=== PATIENT | female | born 1990 | race Caucasian/White ===

== ENCOUNTER → 2017-08-11 21:14 | Outpatient (CLI) | payer OTHER, SELFPAY ==
[2017-08-17 10:06] LABS: HPV Reflexed? NOT INDICATED
== END ==
PROVIDERS: Visit Provider Obstetrics & Gynecology
DX: Z12.4 Encounter for screening for malignant neoplasm of cervix (principal)
CPT/HCPCS: 88175; G0145

== ENCOUNTER 2017-08-25 18:01 | Emergency (ER) | payer OTHER, SELFPAY ==
--- NOTE | 2017-08-25 18:01 | DT_ITS ---
This patient was seen during an EMR downtime August 24, 2017 - August 31, 2017. This patient may have a combination of paper and electronic documentation or all paper documentation. All documentation is viewable within the e-chart portion of [employer] for each patient visit.
--- NOTE | 2017-08-25 18:10 | CT_ITS ---
STUDY: CT BRAIN WITHOUT CONTRAST REASON FOR EXAM: Female, 27 years old. Injury. RADIATION DOSAGE (If Supplied By Facility): CTDIvol = ( 44.99 ) mGy, DLP = ( 728.62 ) mGycm TECHNIQUE: Transaxial CT imaging of the brain was performed without administration of intravenous contrast material. Individualized dose optimization techniques were used for this CT. COMPARISON: None. FINDINGS: Normal soft tissue structures. Normal calvarium. Normal size ventricles and extra-axial spaces for the patient's age. Normal white matter tracts of the cerebral hemispheres. Normal basal ganglia and thalami. Normal brainstem. Normal cerebellum. There is no intracranial hemorrhage. There are no findings of an acute ischemic infarction. Normal visualized paranasal sinuses. CT/Brain/Head without Contrast IMPRESSION: Normal unenhanced CT scan of the brain. Electronically Signed: Timoteo Cordon MD at 21:32 EDT , Service support ,
== END 2017-08-25 19:15 | disposition home or self-care (01) ==
LOC: ED 08-27 08:45
PROVIDERS: Emergency Provider Emergency Medicine; Family Provider Family Medicine; PCP Family Medicine
DX: S09.90XA Unspecified injury of head, initial encounter (principal); S06.0X9A Concussion with loss of consciousness of unspecified duration, initial encounter; W22.8XXA Striking against or struck by other objects, initial encounter; Y93.9 Activity, unspecified; Y92.9 Unspecified place or not applicable
CPT/HCPCS: 70450; 99282

== ENCOUNTER 2017-11-16 10:57 | Emergency (ER) | payer OTHER, SELFPAY ==
[2017-11-16 10:58] VITALS: BP 134/67; PULSE 57; RESP 16; TEMP 36.9; O2SAT 100; BMI 21.2
--- NOTE | 2017-11-16 11:36 | ED.VISSUMM ---
- ER Visit Summary Date of Service: 11/16/17 Chief Complaint: Ankle injury History of Present Illness: The patient is a 27 F who did not see a weight on the floor at the gym today and sustained an inversion injury. She notes pain over the lateral malleolus. She denies any medial or posterior pain no pain at the fifth metatarsal or fibular head site. Physical Examination: Afebrile vital signs stable Gen: Well-nourished well-developed Head: Normocephalic atraumatic Eyes: Perrl EOMI ENT: TMs clear no rhinorrhea moist mucous membranes Neck: Supple no lymphadenopathy no JVD nontender CVS: Regular rate rhythm no murmurs normal S1-S2 Respiratory: No distress clear to auscultation bilaterally chest nontender Abdomen: Soft nontender nondistended normal bowel sounds no masses Back: Nontender Extremity: Tender palpation over the anterior aspect of the right fibula and the ATF ligament Skin: Normal color no rash Neuro: alert orientated ?3 CN II-XII intact normal strength sensation reflexes gait cerebellar Psych: Normal affect normal mood Test Results: Three-view negative Emergency Department Course and Treatment: Patient will be placed in a air splint instruction for rice therapy return if worsening or concerns Impression: 1. Right ankle sprain This note was generated with [employer] dictation software. It may contain incorrect words, spelling, and punctuation that were not noted in review of the chart prior to signing ED Disposition - Plan for ED Patient: Disposition: Home or Assisted Living Chief Complaint: Lower Extremity Injury Instructions: ED Sprain Ankle W X Ray Referrals: Yao Hanks MD [Primary Care Provider] - 10-14 Days if not better
== END 2017-11-16 12:39 | disposition home or self-care (01) ==
PROVIDERS: Emergency Provider Emergency Medicine; Family Provider Family Medicine; PCP Family Medicine
DX: S93.401A Sprain of unspecified ligament of right ankle, initial encounter (principal); X50.1XXA Overexertion from prolonged static or awkward postures, initial encounter; Y93.89 Activity, other specified; Y92.39 Other specified sports and athletic area as the place of occurrence of the external cause; Y99.8 Other external cause status
CPT/HCPCS: 73610; 99283

== ENCOUNTER → 2017-12-17 10:32 | Outpatient (CLI) | payer OTHER, SELFPAY ==
[2017-12-18 18:39] LABS: Lead, Blood Adult 16+yrs 1 ug/dL (0-4)
== END ==
PROVIDERS: Family Provider Family Medicine; PCP Family Medicine; Referring Provider Physician Assistant; Visit Provider Physician Assistant
DX: Z77.011 Contact with and (suspected) exposure to lead (principal)
CPT/HCPCS: 36415; 83655

== ENCOUNTER → 2018-02-19 15:45 | Outpatient (CLI) | payer OTHER, SELFPAY ==
[2018-02-19 14:24] VITALS: BMI 21.4
[2018-02-19 17:18] LABS: Absolute Lymphocyte Count 2.08 X10^3/ul (0.83-4.51); Absolute Neutrophil Count 6.3 X10^3/uL (2.0-7.7); Basophil# 0.03 X10^3/uL; Basophil% 0.3 % (0-1); Eosinophil# 0.07 X10^3/uL; Eosinophils% 0.8 % (0-5); Hemoglobin 12.4 g/dl (12.0-15.0); Lymphocyte # 2.08 X10^3/ul (4.0); Lymphocyte % 22.5 % (19-41); Mean Corp Hgb Conc 32.6 g/gl (32-36); Mean Corpuscular Hgb 28.8 pg (27.0-32.0); Mean Corpuscular Volume 88.2 fL (81-99); Mean Platelet Vol. 9.9 fl (6.2-12.0); Monocyte# 0.78 X10^3/uL; Monocyte% 8.5 % (0-10); Neutrophil # 6.25 X10^3/uL (2.7-7.7); Neutrophil % 67.7 % (47-70); Platelet Count 270 K/mm3 (150-450); RBC Distribution Width CV 12.6 % (11.6-14.6); RBC Distribution Width SD 40.7 fl (35.1-43.9); Red Blood Count 4.31 M/mm3 (4.2-5.4); White Blood Count 9.2 K/mm3 (4.4-11.0)
[2018-02-19 17:23] LABS: POSITIVE COUNT NO; POSITIVE DIFFERENTIAL NO; POSITIVE MORPHOLOGY NO
[2018-02-19 18:24] LABS: HIV - WCH Non-Reactive (Nonreactive); Rubella IgG 194.8 IU/mL
[2018-02-19 20:19] LABS: Chlamydia Trachomatis by PCR Negative (Negative); Neisserai gonorrhoeae by PCR Negative (Negative); Probe Check PASS; Sample Adequacy Control PASS; Specimen Processing Control PASS
[2018-02-22 11:17] LABS: HEPATITIS B SURFACE AG Negative (Negative)
[2018-02-26 02:32] LABS: Rapid Plasmin Reagin (RPR) NONREACTIVE (NONREACTIVE)
--- OUTSIDE RECORDS SUMMARY | 2018-04-16 14:37 | XMS RPT_ITS ---
:1990 Author Organization [facility] Support Name Relationship Address Phone ASH PORTILLO Unavailable [address] + [place] [address] [facility] Unavailable [address] + [place] [address] ASH PORTILLO Unavailable [address] + [place] [address] [facility] Unavailable [address] + [place] [address] ASH PORTILLO Unavailable [address] + [place] [address] [facility] Unavailable [address] + [place] [address] ASH PORTILLO Unavailable [address] + [place] [address] [facility] Unavailable [address] + [place] [address] ASH PORTILLO Unavailable [address] + [place] [address] [facility] Unavailable [address] + [place] [address] ASH PORTILLO Unavailable [address] + [place] [address] [facility] Unavailable [address] + [place] [address] ASH PORTILLO Unavailable [address] + [place] [address] [facility] Unavailable [address] + [place] [address] ASH PORTILLO Unavailable . + [place] [address] [facility] Unavailable Unavailable + [place] [address] U Unavailable Unavailable Unavailable Care Team Providers Name Role Phone ASSESSMENT, HEALTH RISK Attending Unavailable Marcanthony, Elva Referring Unavailable Marcanthony, Elva Primary Care Unavailable Marcanthony, Elva Attending Unavailable DOCTOR, OUT OF TOWN Referring Unavailable Marcanthony, Elva Primary Care Unavailable Marcanthony, Elva Attending Unavailable Marcanthony, Elva Referring Unavailable Denise Rhoades Attending Unavailable Rhoades, Denise Referring Unavailable [place], Ayo Primary Care Unavailable Latonya, Yao Primary Care Unavailable Yao Montano Attending Unavailable Diogenes, Jl Attending Unavailable Latonya, Yao Referring Unavailable WylesJl Attending Unavailable Wyles, Jl Referring Unavailable [place], Yao Primary Care Unavailable Marcanthony, Elva Attending Unavailable Latonya, Yao Referring Unavailable Marcanthony, Elva Attending Unavailable Marcanthony, Elva Referring Unavailable [place], Yao Primary Care Unavailable PROBLEMS PROBLEMS DATE TYPE CONDITION / CODE ATTENDING STATUS SOURCE 02/19/2018 Unknown Z34.90 - Encounter Clementina Active [place] for supervision of [facility] normal , Hospital unspecified, Repository unspecified trimester / Z34.90(ICD-10) 02/19/2018 Unknown Z3A.08 - 8 weeks Clementina Active [place] gestation of [facility] / Hospital Z3A.08(ICD-10) Repository 02/19/2018 Unknown Z34.01 - Encounter Phi Mcrae [place] for supervision of [facility] normal first Hospital , first Repository trimester / Z34.01(ICD-10) 12/17/2017 Unknown Z77.011 - Contact Jl Shetty Active [place] with and Community (suspected) Hospital exposure to lead / Repository Z77.011(ICD-10) 12/17/2017 Unknown Z78.9 - Other Jl Shetty Active [place] specified health Community status / Hospital Z78.9(ICD-10) Repository 09/18/2017 Unknown S09.90XA - Denise Rhoades Active [place] Unspecified injury Community of head, initial Hospital encounter / Repository S09.90XA(ICD-10) 08/12/2017 Unknown Z12.4 - Encounter Phi Mcrae [place] for screening for [facility] malignant neoplasm Hospital of cervix / Repository Z12.4(ICD-10) 08/11/2017 Unknown Z01.419 - Encounter Clementina, Active [place] for gynecological [facility] (general) (routine) Repository without abnormal findings / Z01.419(ICD-10) PROCEDURES PROCEDURES No Procedure Records FoundRESULTS RESULTS CT/NG WCH BY PCR Collected: 02/19/2018 Status: F Source: [place] 6:36 PM [facility] REPOSITORY TYPE CODE TESTS RESULT OUT OF RANGE REFERENCE UNITS LAB L8200.2100 Negative Normal Chlam Negative Trac PCR LAB L8200.2200 Negative Normal NG by Negative PCR Performed By: #### L8200.1999 #### [facility] [address] [place], [address] Observed: 02/19/2018 Status: F Source: ENCINAL CULTURE, URINE 6:36 PM [facility] REPOSITORY Urine Culture Culture exhibits no growth. Performed By: #### M100.0650 #### [facility] [address] [place], [place], [address] CBC W/DIFF, AUTOMATED Collected: 02/19/2018 Status: F Source: ENCINAL 3:48 PM [facility] REPOSITORY TYPE CODE TESTS RESULT OUT OF RANGE REFERENCE UNITS LAB L100.1000 4.4-11.0 K/mm3 Normal WBC 9.2 LAB L100.1200 4.2-5.4 M/mm3 Normal RBC 4.31 LAB L100.1300 12.0-15.0 g/dl Normal HGB 12.4 LAB L100.1400 37-47 % Normal HCT 38.0 LAB L100.1500 81-99 fL Normal MCV 88.2 LAB L100.1600 27.0-32.0 pg Normal MCH 28.8 LAB L100.1700 32-36 g/gl Normal MCHC 32.6 LAB L100.1810 11.6-14.6 % Normal RDW CV 12.6 LAB L100.1820 35.1-43.9 fl Normal RDW SD 40.7 LAB L100.1900 150-450 K/mm3 Normal PLT 270 LAB L100.2000 6.2-12.0 fl Normal MPV 9.9 LAB L100.2100 47-70 % Normal NEUT% 67.7 LAB L100.2200 19-41 % Normal LY% 22.5 LAB L100.2300 0-10 % Normal MONO% 8.5 LAB L100.2400 0-5 % Normal EO% 0.8 LAB L100.2500 0-1 % Normal BASO% 0.3 LAB L100.2550 0.0-0.9 % Normal IM GRAN % 0.200 Result Comment: IG% - Immature Granulocytes (promyelocytes, myelocytes and metamyelocytes) > 1% indicates that a LEFT SHIFT is Present. LAB L100.2620 2.0-7.7 X10 3/uL Normal Absolute Neut 6.3 LAB L100.2720 0.83-4.51 X10 3/ul Normal Absolute Lymph 2.08 Performed By: #### L100.0100 #### [facility] [address] [place], [address] TYPE AND SCREEN Collected: 02/19/2018 Status: F Source: ENCINAL 3:48 PM [facility] REPOSITORY Order Comment: Reason for Type AND Screen/Red Cells: TYPE CODE TESTS RESULT OUT OF RANGE REFERENCE UNITS LAB B10.0800 O Normal BLOOD TYPE GEL POSITIVE LAB B100.4000 Normal Antibody NEGATIVE Screen Performed By: #### B101.7450 #### [facility] [address] [facility] [place], [place], [id number] RUBELLA IGG Collected: 02/19/2018 Status: F Source: ENCINAL 3:48 PM [facility] REPOSITORY TYPE CODE TESTS RESULT OUT OF RANGE REFERENCE UNITS LAB L509.4000 IU/mL Normal Rubella IgG 194.8 Result Comment: Antibody results Interpretation of Immune Status < 5 IU/ml Presumed Non-immune 5 - < 10 IU/ml Equivocal > or = 10 IU/ml Presumed Immune Performed By: #### L509.4000, L3890.6005 #### [facility] [address] [place], [place], [id number] HIV - H Collected: 02/19/2018 Status: F Source: ENCINAL 3:48 PM [facility] REPOSITORY TYPE CODE TESTS RESULT OUT OF RANGE REFERENCE UNITS LAB L3890.6005 Nonreactive Normal HIV - [facility] Non-Reactive Performed By: #### L509.4000, L3890.6005 #### [facility] [address] [place], [address] HEPATITIS B SURFACE Collected: 02/19/2018 Status: F Source: [place] AG 3:48 PM [facility] REPOSITORY TYPE CODE TESTS RESULT OUT OF RANGE REFERENCE UNITS LAB L3100.0400 Negative Normal HB Negative SURF AG Result Comment: Performed at: [facility] [id number] Special Programs Director: Romel Clemens PhD, Phone: [phone] Performed By: #### L3100.0390 #### [facility] (refer to report for specific site) refer to report for address and phone number RAPID PLASMIN REAGIN Collected: 02/19/2018 Status: F Source: [place] (RPR) 3:48 PM [facility] REPOSITORY TYPE CODE TESTS RESULT OUT OF REFERENCE UNITS RANGE LAB L700.5000 NONREACTIVE NONREACTIVE Normal RPR Performed By: #### L700.5000 #### [facility] [address] [place], [place], [address] ORGAN TEACHER OFFICE VISIT Observed: 02/19/2018 Status: F Source: [place] REPORT 3:34 PM [facility] REPOSITORY [facility] [address] [place] [address] OFFICE VISIT Date of Service: 02/19/18 MR#: [id number] Acct: [id number] Name: NEIDA PORTILLO Rep #: [id number] : 1990 Provider: Elva Mcrae MD Age/Sex: 27/F Location: [facility] Status: Signed Intake Vital Signs02/19/18 Height 5 ft 3 in 02/19/18 Weight: 121 lb 4 oz 02/19/18 Body Mass Index (BMI) 21.4 02/19/18 Blood Pressure 104/50 L Intake Visit Reasons: NOB - LMP 02/19 Chief Complaint: NEW OB Control Systems Designer Required: No Is patient in pain?: No Allergies Penicillins [PCN] Adverse Reaction (Verified 02/19/18 14:25) Itching Medications vitamin #56-iron 35 mg and 5 mg-folic acid 1 mg-dha capsule 1 cap PO DAILY 02/19/18 [History Confirmed 02/19/18] Last Menstral Period: 07/27/17 Zika: Zika virus screening: Negative : No PFSH PFSH Surgical History History of wisdom tooth extraction (Acute) Hx of LASIK (Acute) Family History Mother Breast cancer Grandmother Cancer multiple myeloma Social History Smoking Status: Never smoker alcohol intake: current details: social substance use type: does not use caffeine: Yes frequency: daily seatbelt use: always do you feel safe at home: Yes additional 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 OB Visit GREGORIO Calculator Estimated Delivery Date 09/26/18 Based on LMP (certain) 12/20/17 Current WG 8w 5d Number 1 Comments: Limited transvaginal ultrasound performed to confirm EDC and viability. CRL is consistent with LMP. FHTs 170. no gross abnormalities noted. Expected Delivery Route/Plan Initial Weight: 121 lb Date Weight BP Urine PrFHR FuHt Pres MoCTX DilationFetal StVisit NoProviderComments E ot v te GA G Effac lucose ed Menstrual History Last Menstral Period: 07/27/17 Reported LMP: definite Normal amount/duration: Yes On hormonal BC at conception: No Antepartum Record Genetic Screening: Congenital Heart Defect: Other, Neural Tube Defect: Other, Hemoglobinopathy Or Carrier: Other, Cystic Fibrosis: Other, Chromosome Abnormality: Other, Buzz-Sachs: Other, Hemophilia: Other, Intellectual Disability/Autism: Patient (maternal cousin), Recurrent Loss/Stillbirth: Other, Other Structural Defect: Other, Other Genetic Disease: Other, Maternal Metabolic Disorder: Other Infection History: Live with someone with TB or Exposed to TB: No, Patient or Partner has history of Genital Herpes: No, Rash or Viral illness since last mentrual period: No, Prior GBS-Infected child: No, History of STD: No, HIV Infection: No, History of Hepatitis: No, Recent travel outside of [place]: No, Concern for Hep exposure: No, Varicella immune: Yes Medical History Medical History: Negative: Diabetes, Hypertension, Heart disease, Auto-immune disorder, Kidney disease/UTI, Neurologic/epilepsy, Psychiatric, Depression/ depression, Hepatitis/liver disease, Varicosities/phlebitis, Thyroid dysfunction, Trauma/domestic violence, History of blood transfusions, D (Rh) Sensitized, Pulmonary (e.g.,TB,Asthma), Seasonal allergies, Drug/latex allergies/reactions, Breast, Reception Agent surgery, Operations/hospitalizations, Anesthetic complications, History of abnormal pap, Uterine anomaly/mali, Infertility, Anti-retroviral treatment, Relevant family history, Other ACOG First Trimester First Trimester: , Desire for , Alcohol, Tobacco Cessation, Illicit/Recreational Drug/Substance Use, Intimate Partner Violence, Barriers to care, Unstable Housing, Communication Barriers, Environmental/Work Hazards, Anticipated Course of Care, Nurtrition and weight gain, Toxoplasmosis Precations, Use of Any medications, Sexual activity, Exercise, Dental Care, Sauna/Hot tub use, Seat Belt use, Childbirth classes/Hospital facilities, Travel, Indications for US and Screening for Aneuploidy ROS Const Denies fever(s), Reports system reviewed and no additional complaints, except as docu, Reports fatigue Eyes Reports system reviewed and no additional complaints, except as docu ENT Reports system reviewed and no additional complaints, except as docu Card Denies chest pain, Denies shortness of breath Resp Reports system reviewed and no additional complaints, except as docu, Denies shortness of breath, Denies cough GI Reports nausea, Denies abdominal pain Reports system reviewed and no additional complaints, except as docu Musc Reports system reviewed and no additional complaints, except as docu Skin/Breast Reports system reviewed and no additional complaints, except as docu Neuro Yes system reviewed and no additional complaints, except as docu Psych Reports system reviewed and no additional complaints, except as docu Endo Reports fatigue, Reports system reviewed and no additional complaints, except as docu Exam Const General: healthy appearing, comfortable, no acute distress Orientation: alert HENCA Head: normal to inspection, atraumatic, normocephalic Ears: external ears normal, hearing grossly normal bilaterally Nose: nares normal, external nose normal Mouth: oral mucosae normal Teeth and gingiva: dentition normal Eyes General: appearance normal, both eyes and all related structures Neck Neck: no lymphadenopathy, supple, normal visual inspection Thyroid: thyroid normal Resp Effort AND Inspection: normal respiratory effort GI Inspection: normal to inspection Palpation: soft, no hepatosplenomegaly General: bladder normal to palpation External Female Exam: normal external appearance, normal appearance of the urethra Urethra: normal appearance of the urethra Speculum Exam - Vagina: normal appearance of the vagina, normal vaginal discharge Speculum Exam - Cervix: normal appearance of the cervix Bimanual Exam- Vagina AND Uterus: bladder normal to palpation, normal bimanual exam, uterus non-tender, other Bimanual Exam- Adnexa, other: adnexae non-tender Skin General: no rashes or lesions noted Neuro Motor: muscle tone normal throughout, no movement abnormalities noted Extrem General: normal to inspection, full ROM Assessment AND Plan Problems 1. 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 2. Encounter for supervision of normal first in first trimester Z34.01 GREGORIO AND Ash Plan Patient oriented to practice and discussed care expectations and screenings. ACOG book offered to patient. Discussed routine and specially indicated labs if needed- patient consents to testing. see problem list details for plan information. Optional screening including carrier screenings, neural tube defect screening, sequential screening, and NIPT screening offered to patient and patient chose: discussed Orders Orders: Supplemental Info ACOG book given and patient encouraged to read about nutrition, exercise, weight gain, and food avoidance in . Coding Level of Care Code OB Routine Diagnoses 8 weeks gestation of Z3A.08 Weeks of gestation: 8 weeks Encounter for supervision of normal first in first trimester Z34.01 Normal : normal first Trimester: first trimester 02/19/18 1534 <Electronically signed by Elva Mcrae MD> Date Elva Mcrae MD Cosigner Signature: Date (if applicable) CC: LEAD, BLOOD ADULT Collected: 12/17/2017 Status: F Source: [place] 16+YRS 10:43 AM [facility] REPOSITORY TYPE CODE TESTS RESULT OUT OF RANGE REFERENCE UNITS LAB L3100.6450 0-4 ug/dL Normal LEAD 1 *Form Result Comment: Analysis by inductively coupled plasma/mass spectrometry (ICP/MS) Environmental Exposure: WHO Recommendation <20 Occupational Exposure: OSHA Lead Std 40 IVANIA 30 Detection Limit = 1 This test was developed and its performance characteristics determined by [employer]. It has not been cleared or approved by the Food and Drug Administration. Performed at: [facility] [place] [address] [id number] Special Programs Director: Romel Clemens PhD, Phone: [phone] Performed By: #### L3100.6450 #### [facility] (refer to report for specific site) refer to report for address and phone number URGENT CARE VISIT Observed: 12/17/2017 Status: F Source: [place] REPORT 9:31 AM [facility] REPOSITORY [facility] [place] [address] OFFICE VISIT Date of Service: 12/17/17 MR#: [id number] Acct: [id number] Name: NEIDA PORTILLO Rep #: [id number] : 1990 Provider: Jl GUERRA Age/Sex: 27/F Location: [facility] Status: Signed Intake Vital Signs12/17/17 Height 5 ft 3 in 12/17/17 Weight: 120 lb 12/17/17 Body Mass Index (BMI) 21.2 12/17/17 Blood Pressure 112/74 12/17/17 Respiratory Rate 14 Intake Visit Reasons: LEAD EXP Chief Complaint: lead exp Control Systems Designer Required: No Accompanied by: self Is patient in pain?: No Allergies Penicillins [PCN] Adverse Reaction (Verified 12/17/17 08:47) Itching Medications DIM ELITE NOT APPLICABLE 12/17/17 [History Confirmed 12/17/17] Lactobacil.acidophilus-Bifido.animalis 5 billion cell sprinkle capsule 1 cap PO DAILY 12/17/17 [History Confirmed 12/17/17] cetirizine 10 mg capsule 10 mg PO DAILY 12/17/17 [History Confirmed 12/17/17] [facility] Surgical History History of wisdom tooth extraction (Acute) Hx of LASIK (Acute) Family History Mother Breast cancer Grandmother Cancer multiple myeloma Social History Smoking Status: Never smoker alcohol intake: current details: social substance use type: does not use caffeine: Yes frequency: daily seatbelt use: always do you feel safe at home: Yes additional social history: Jose A Aleman 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 Patient notes being concerned because she has been rehabilitating at all house along with her which she feels has old lead paint on the amador she has been exposed to. More particularly her concerns are she would like to become , and as result would like to be screened for lead toxicity levels and blood as well as screening. She notes she is asymptomatic otherwise other than slightly fatigued over the last couple of weeks. No c/o irritability, loss of appetite, weight loss, abdominal pain, nausea/ vomiting. She notes no other associated symptoms no other alleviating or aggravating factors. ROS Const Constitutional: No other (ROS negative x10 other than as noted above) Exam Const General: cooperative, healthy appearing, no acute distress, comfortable Nutritional Appearance: average body habitus Orientation: alert, awake, oriented x3 HENMT Head: normal to inspection Ears: hearing grossly normal bilaterally, external ears normal, TM's normal bilaterally, EAC's normal Nose: external nose normal, nares normal, septum normal, no nasal discharge Face and sinus: normal facial exam, face symmetric Mouth: tongue normal, lip normal, oropharynx normal, oral mucosae normal Teeth and gingiva: dentition normal, gingiva normal Throat: uvula midline, tonsils normal, posterior oropharynx normal Eyes General: appearance normal, both eyes and all related structures Neck Neck: normal visual inspection, full ROM, no lymphadenopathy, no meningeal signs, supple Neck mass: No Thyroid: thyroid normal Lymphatic: no lymphadenopathy noted Chest Chest palpation AND inspection: normal inspection of the chest Resp Effort AND Inspection: normal respiratory effort, able to speak in complete sentences Auscultation: Bilateral: Clear to Auscultation Cardio Palpation: normal PMI Rate: regular rate Rhythm: regular rhythm Heart Sounds: S1 normal, S2 normal, no gallops, no murmurs, no rubs Pulses: radial pulses present GI Inspection: normal to inspection Palpation: soft, no hepatosplenomegaly General: other (Negative urine hCG today) Skin General: no rashes or lesions noted Neuro General: alert, awake, oriented x3, gait normal Cognition: normal cognition Speech: speech normal Gait: normal gait Motor: muscle tone normal throughout Sensory Exam: no sensory deficits noted Psych Appearance: grossly normal Mental Status: mental status grossly normal Mood: congruent mood Affect: normal affect Speech and Movement: speech and movement normal Attitude: cooperative Thought Process: normal Thought Content: normal Judgment: judgment good Results [facility] Office , Urine Negative Last Edit by Neida Jain on 12/17/17 08:55 Assessment AND Plan Problems 1. 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 Urine hCG negative in office today. Follow-up with PCP or the now clinic on an as-needed basis only. Patient states acknowledging understanding all the above. This note was generated with Translimit dictation software. It may contain incorrect words, spelling, and punctuation that were not noted in checking the note before signing. 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.011 12/17/17 0931 <Electronically signed by Jl GUERRA> Date Jl GUERRA Cosigner Signature: Date (if applicable) CC: EMERGENCY DEPARTMENT Observed: 11/16/2017 Status: F Source: E[place]IN[place] SUMMARY 5:20 PM [facility] REPOSITORY [facility] Medical Records Department [address] [place] [address] Emergency Department Summary 11/16/17 1136 MR#: [id number] Acct: [id number] Name: NEIDA PORTILLO Rep #: [id number] : 1990 27 From: Yao Montano DO PCP: Yao Hanks MD Status: DEP ER - ER Visit Summary Date of Service: 11/16/17 Chief Complaint: Ankle injury History of Present Illness: The patient is a 27 F who did not see a weight on the floor at the gym today and sustained an inversion injury. She notes pain over the lateral malleolus. She denies any medial or posterior pain no pain at the fifth metatarsal or fibular head site. Physical Examination: Afebrile vital signs stable Gen: Well-nourished well-developed Head: Normocephalic atraumatic Eyes: Perrl EOMI ENT: TMs clear no rhinorrhea moist mucous membranes Neck: Supple no lymphadenopathy no JVD nontender CVS: Regular rate rhythm no murmurs normal S1-S2 Respiratory: No distress clear to auscultation bilaterally chest nontender Abdomen: Soft nontender nondistended normal bowel sounds no masses Back: Nontender Extremity: Tender palpation over the anterior aspect of the right fibula and the ATF ligament Skin: Normal color no rash Neuro: alert orientated 3 CN II-XII intact normal strength sensation reflexes gait cerebellar Psych: Normal affect normal mood Test Results: Three-view negative Emergency Department Course and Treatment: Patient will be placed in a air splint instruction for rice therapy return if worsening or concerns Impression: 1. Right ankle sprain This note was generated with Translimit dictation software. It may contain incorrect words, spelling, and punctuation that were not noted in review of the chart prior to signing ED Disposition - Plan for ED Patient: Disposition: Home or Assisted Living Chief Complaint: Lower Extremity Injury Instructions: ED Sprain Ankle W X Ray Referrals: Yao Hanks MD [Primary Care Provider] - 10-14 Days if not better What to do if you have Problems For any increased pain, shortness of breath, bleeding, nausea or vomiting, chest pain, or any unexpected problems, contact your Primary Care Provider. Call [facility] ([phone]) or report to the closest Emergency Room. Call 911 if necessary. 11/16/17 1720 <Electronically signed by Yao Montano DO> Date Yao Montano DO Cosigner Signature (If Indicated): Date CC: Yao Hanks MD ANKLE MIN 3 VIEWS Observed: 11/16/2017 Status: F Source: [place] 11:11 AM [facility] REPOSITORY [facility] Imaging Services [address] [place] [address] Ankle min 3 Views MR#: [id number] Acct: [id number] Name: NEIDA PORTILLO Rep #: [id number] : 1990 F 27 From: Barrie Armstrong MD PCP: Yao Hanks MD Status: DEP ER Study: Ankle min 3 Views Date of Exam: 11/16/17 Exam# [id number] Ordering Dr: Yao Montano DO STUDY: X-RAY - RIGHT ANKLE REASON FOR EXAM: Female, 27 years old. Pain following injury. TECHNIQUE: 3 view(s) of the ankle. COMPARISON: None. FINDINGS: Normal visualized distal tibia and fibula. Normal medial and lateral malleoli. Normal tibiotalar articulation and ankle mortise. Normal visualized talus and calcaneus. The visualized subtalar, talonavicular, calcaneocuboid and tarsal articulations are normal. The soft tissue structures are unremarkable. RAD/Ankle min 3 Views IMPRESSION: Normal x-ray examination of the ankle. Electronically Signed: Barrie Armstrong MD at 11:41 EDT Tel [phone], Service support , CC: Yao Hanks MD; Yao Montano DO Extrusion Die Repairer: Signed DOWNTIME REPORT Observed: 09/09/2017 Status: F Source: SORAIDA 1:57 PM [facility] Medical Records Department [address] [place] [address] Downtime Report MR#: [id number] Acct: [id number] Name: NEIDA PORTILLO E Rep #: [id number] : 1990 27 From: Rufus Carver MD PCP: Yao Hanks MD Status: [facility] ER This patient was seen during an EMR downtime August 24, 2017 - August 31, 2017. This patient may have a combination of paper and electronic documentation or all paper documentation. All documentation is viewable within the e-chart portion of Quu for each patient visit. BRAIN/HEAD WITHOUT Observed: 08/27/2017 Status: F Source: SORAIDA CONTRAST 6:31 PM [facility] Imaging Services [address] [place] [address] Brain/Head without Contrast MR#: [id number] Acct: [id number] Name: NEIDA PORTILLO Rep #: [id number] : 1990 F 27 From: Timoteo Cordon MD PCP: Yao Hanks MD Status: [facility] ER Study: Brain/Head without Contrast Date of Exam: 08/25/17 Exam# [id number] Ordering Dr: Denise Rhoades MD STUDY: CT BRAIN WITHOUT CONTRAST REASON FOR EXAM: Female, 27 years old. Injury. RADIATION DOSAGE (If Supplied By Facility): CTDIvol = ( 44.99 ) mGy, DLP = ( 728.62 ) mGycm TECHNIQUE: Transaxial CT imaging of the brain was performed without administration of intravenous contrast material. Individualized dose optimization techniques were used for this CT. COMPARISON: None. FINDINGS: Normal soft tissue structures. Normal calvarium. Normal size ventricles and extra-axial spaces for the patient's age. Normal white matter tracts of the cerebral hemispheres. Normal basal ganglia and thalami. Normal brainstem. Normal cerebellum. There is no intracranial hemorrhage. There are no findings of an acute ischemic infarction. Normal visualized paranasal sinuses. CT/Brain/Head without Contrast IMPRESSION: Normal unenhanced CT scan of the brain. 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 Designer Required: No Is patient in pain?: No Allergies No Known Allergies Allergy (Unverified 08/11/17 13:19) Medications NK [NK] 08/11/17 [History Confirmed 08/11/17] Is last menstrual period known: Yes Last Menstral Period: 07/27/17 Post menopausal: No Patient : No : No PFSH Family History Mother Breast cancer Grandmother Cancer multiple myeloma Social History Smoking Status: Never smoker alcohol intake: current details: social substance use type: does not use caffeine: Yes frequency: daily seatbelt use: always do you feel safe at home: Yes 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 Last PAP: unsure History of abnormal PAP: no Female Reproductive History Last Menstral Period: 07/27/17 Cycle Length: 21-35 Control Method: condoms associated symptoms: acne Questions: Metorrhagia: No, Sexually active: Yes, Dyspareunia: No, PCB: No ROS Const Constitutional: Reports as per HPI; denies poor appetite, fatigue, increased appetite, weight gain or weight loss Cardio Card: Denies chest pain Resp Resp: Denies dyspnea or cough GI GI: Reports as per HPI; denies bloating, abdominal pain, constipation, vomiting or nausea Details: has IBS that is managed with diet and exercise : Reports as per HPI and other; denies blood in urine, vaginal odor, vaginal itching, vaginal dryness, vaginal discharge, urinary urgency, urinary incontinence, urinary frequency, pelvic pain, painful urination, difficulty urinating, prolapse symptoms or nipple discharge Skin Skin/Breast: Denies breast pain, breast skin changes, nipple discharge, breast lump or changing lesions Exam Const General: cooperative, healthy appearing, comfortable, no acute distress, well developed, well groomed HENCA Head: normal to inspection, normocephalic Ears: hearing grossly normal bilaterally, external ears normal Nose: external nose normal Face and sinus: normal facial exam Neck Neck: normal visual inspection, full ROM, no lymphadenopathy Thyroid: thyroid normal Chest Chest palpation AND inspection: normal inspection of the chest Breast inspection: normal inspection of the breasts, normal inspection of the axillae Breast palpation: normal palpation of the breasts, normal palpation of the axillae, no axillary lymphadenopathy Resp Effort AND Inspection: normal respiratory effort GI Inspection: normal to inspection, non-distended Palpation: no guarding, soft, no hepatosplenomegaly General: bladder normal to palpation External Female Exam: normal external appearance, normal appearance of the urethra, no lesions Urethra: normal appearance of the urethra, normal palpation Speculum Exam - Vagina: normal appearance of the vagina, normal vaginal discharge Speculum Exam - Cervix: normal appearance of the cervix, no cervical discharge, no lesions, nontender Bimanual Exam- Vagina AND Uterus: No cervical tenderness, normal bimanual exam, uterine size normal, bladder normal to palpation, uterine mobility normal, uterine consistency normal, uterus non-tender, no cervical motion tenderness Bimanual Exam- Adnexa, other: normal adnexae, no adnexal masses, adnexae non-tender Skin General: no rashes or lesions noted Neuro General: alert, moves all extremities, no focal motor deficits Extrem General: no pedal edema, normal to inspection Psych Appearance: grossly normal Mental Status: mental status grossly normal Affect: normal affect Speech and Movement: speech and movement normal Attitude: cooperative Assessment AND Plan Problems 1. Encounter for gynecological examination without abnormal finding Z01.419 2. Screening for cervical cancer Z12.4 Plan Cervical cancer screening: pap Breast cancer screening: clinical STD prevention and contraceptive options including their risks, benefits, and alternatives were reviewed with the patient and she chooses: preconception counseling. condoms for now Encouraged maintenance of a healthy weight and active lifestyle and handout given. Calcium/vitamin D recommendations provided. Annual exam handout including recommendations for good health guidelines and basic screening information given. Problem list up to date, see problem list details for any additional plan information. follow up in one year for annual health maintenance exam or sooner if needed. Coding Level of Care Code Off vis,new,prev 18-39yrs Diagnoses Encounter for gynecological examination without abnormal finding Z01.419 Gynecological examination findings: abnormal findings ABSENT Screening for cervical cancer Z12.4 08/11/17 1353 <Electronically signed by Elva Mcrae MD> Date Elva Mcrae MD Cosigner Signature: Date (if applicable) CC: PAP I-G W/RFX Collected: 08/11/2017 Status: F Source: SORAIDA HRHPV-APTIMA 1:00 PM [facility] REPOSITORY Order Comment: CYTOLOGY INFORMATION: - CLINICAL INFORMATION: - DATE LMP/MENOPAUSE: LMP - COLLECTION VIAL: Thin Prep Vial - MEMBER SERVICES REPRESENTATIVE SOURCE: CERVICAL - COLLECTION TECHNIQUE: CX BROOM ONLY Specimen Comment: [id number] Specimen Comment: Source.............Cervix Specimen Comment: No. of containers..01 ThinPrep Vial TYPE CODE TESTS RESULT OUT OF RANGE REFERENCE UNITS LAB L7400.0800 . Normal DIAGN Comment Result Comment: NEGATIVE FOR INTRAEPITHELIAL LESION AND MALIGNANCY. LAB L7400.0900 . Normal ADEQ Comment Result Comment: Satisfactory for evaluation. Endocervical and/or squamous metaplastic cells (endocervical component) are present. LAB L7400.1400 . Normal PERFORM Comment Result Comment: Pako Beatty, Figure Refinisher And Repairer (ASCP) LAB L7400.2575 . Normal TEST METHOD Comment Result Comment: This liquid based ThinPrep(R) pap test was screened with the use of an image guided system. LAB L7400.2600 . Normal . COMM LAB L7400.2700 . Normal PAPSMR Comment Result Comment: The Pap smear is a screening test designed to aid in the detection of premalignant and malignant conditions of the uterine cervix. It is not a diagnostic procedure and should not be used as the sole means of detecting cervical cancer. Both false-positive and false-negative reports do occur. LAB L7400.2800 . Normal HPV RFLX Comment Result Comment: The HPV DNA reflex criteria were not met with this specimen result therefore, no HPV testing was performed. Performed at: [address] [id number] Special Programs Director: Lety Joiner MD, Phone: [phone] Performed By: #### L7400.0353 #### [facility] (refer to report for specific site) refer to report for address and phone number URINALYSIS, EMPLOYEE Collected: 08/04/2017 Status: F Source: ENCINAL 8:24 AM [facility] REPOSITORY TYPE CODE TESTS RESULT OUT OF RANGE REFERENCE UNITS LAB L400.3000 Yellow COLOR Normal Yellow LAB L400.3050 Clear Normal CLARITY Sl. Cloudy LAB L400.3200 Normal mg/dl Normal GLUCOSE, UR Normal LAB L400.3300 Negative mg/dL Normal BILIRUBIN URINE Negative LAB L400.3400 Negative mg/dl High 5 KETONE UR LAB L400.3465 1.002-1.030 Normal SP.GR. DIPSTX 1.020 LAB L400.3550 5.0 - 8.0 pH UR Normal 6.0 LAB L400.3600 Negative mg/dl PROT Normal DIPSTX Negative LAB L400.3700 Normal mg/dl Normal UROBILI Normal LAB L400.3750 Negative Normal NITRITE UR Negative LAB L400.3780 Negative /ul Normal OCCULT BLOOD-UR Negative LAB L400.3800 Negative /ul High LEUK 25 ESTERASE Performed By: #### L400.0100 #### [facility] [address] [place], [address] CBC, EMPLOYEE Collected: 08/04/2017 Status: F Source: ENCINAL 8:24 AM [facility] REPOSITORY TYPE CODE TESTS RESULT OUT OF RANGE REFERENCE UNITS LAB L100.1000 4.4-11.0 K/mm3 Normal WBC 4.5 LAB L100.1200 4.2-5.4 M/mm3 Normal RBC 4.58 LAB L100.1300 12.0-15.0 g/dl Normal HGB 13.2 LAB L100.1400 37-47 % Normal HCT 40.7 LAB L100.1500 81-99 fL Normal MCV 88.9 LAB L100.1600 27.0-32.0 pg Normal MCH 28.8 LAB L100.1700 32-36 g/gl Normal MCHC 32.4 LAB L100.1810 11.6-14.6 % Normal RDW CV 13.5 LAB L100.1820 35.1-43.9 fl Normal RDW SD 43.7 LAB L100.1900 150-450 K/mm3 Normal PLT 260 LAB L100.2000 6.2-12.0 fl Normal MPV 9.8 LAB L100.2110 47-70 % Low NEUT% 35.0 LAB L100.2210 19-41 % High LY% 48.7 LAB L100.2310 0-10 % High MONO% 12.9 LAB L100.2410 0-5 % Normal EO% 2.7 LAB L100.2510 0-1 % Normal BASO% 0.7 LAB L100.2620 2.0-7.7 X10 3/uL Low Absolute Neut 1.6 LAB L100.2720 0.83-4.51 X10 3/ul Normal Absolute Lymph 2.18 Performed By: #### L100.0200 #### [facility] [address] [place], [address] NICOTINE URINE DRUG Collected: 08/04/2017 Status: F Source: SORAIDA SCREEN 8:24 AM [facility] REPOSITORY TYPE CODE TESTS RESULT OUT OF RANGE REFERENCE UNITS LAB L505.6250 TO BE Normal CONFIRMED Result Comment: CONFIRMATORY TESTING FOR ALL POSITIVE URINE DRUG SCREEN RESULTS WILL ONLY BE SENT OUT UPON PHYSICIAN ORDER. The results of Urine Drug Screen methods provide only preliminary analytical test results. A more specific alternate chemical method must be used in order to obtain a confirmed analytical result. Gas chromatography/mass spectrometery (GC/MS) is the preferred confirmatory method. Clinical consideration and professional judgement should be applied to any drug of abuse test result, particularly when preliminary positive results are used. LAB L505.6270 <200 ng/mL Normal COT DRG Negative SCREEN Result Comment: Cotinine is the first-stage metabolite of Nicotine. Performed By: #### L505.6240 #### [facility] [address] [facility] [place], [address] EMPLOYEE PROFILE Collected: 08/04/2017 Status: F Source: ENCINAL 8:24 AM [facility] REPOSITORY TYPE CODE TESTS RESULT OUT OF RANGE REFERENCE UNITS LAB L501.0100 74-106 mg/dL Normal GLU 84 Result Comment: Please note revised GLUCOSE reference range effective 2017. LAB L501.1000 7-18 mg/dL Normal BUN 11 LAB L501.1100 0.55-1.02 mg/dL Normal CREAT,SERUM 0.96 Result Comment: The validity of the calculated GFR AND GFRAA in patients over 70 years has not been determined. Clinical correlation is essential. LAB L501.1110 >60 mL/min Normal EST GFR 75 Result Comment: Non- GFR Calc LAB L501.1115 >60 mL/min Normal EST GFR - AA 91 Result Comment: GFR Calc LAB L501.1300 10-20 RATIO Normal BUN/CRE 11.5 LAB L501.1400 2.6-6.0 mg/dL Normal URIC 4.8 Result Comment: The drugs N-Acetylcysteine and Metamizole may falsely depress this assay. LAB L501.1500 6.4-8.2 g/dL Normal T PROT 7.1 LAB L501.1800 3.2-5.0 g/dL Normal ALB 3.8 LAB L501.1950 2.2-4.2 g/dL Normal GLOB 3.3 LAB L501.2000 0.9-2.4 RATIO Normal A/G 1.2 LAB L501.2200 8.5-10.1 mg/dL Normal CA 9.0 LAB L501.2300 2.5-4.9 mg/dL Normal PHOS 3.7 LAB L501.4100 15-37 U/L Normal AST 27 LAB L501.4305 45-117 U/L Normal ALK P 68 LAB L501.4405 13-56 U/L Normal ALT 35 LAB L501.4600 0.20-1.00 mg/dL High T BILI 1.40 LAB L501.4700 0.00-0.30 mg/dL Normal D BILI 0.29 LAB L501.4900 200 mg/dL Normal CHOL 119 Result Comment: <200 mg/dL Desirable 200-240 mg/dL Borderline >240 mg/dL High Risk LAB L501.5000 mg/dL Normal TRIG 68 Result Comment: The drugs N-Acetylcysteine and Metamizole may falsely depress this assay. Serum Triglycerides Reference Interval Normal <150 mg/dL Borderline high 150 - 199 mg/dL High 200 - 499 mg/dL Very High > or = 500 mg/dL LAB L501.5300 136-145 mmol/L Normal NA 142 LAB L501.5600 3.5-5.1 mmol/L Normal K 3.7 LAB L501.5900 98-107 mmol/L Normal CL 107 LAB L501.6100 21.0-32.0 mmol/L Normal CO2 26.0 LAB L501.6200 5-15 Normal 9 GAP LAB L501.6400 mg/dL Normal HDL 61 Result Comment: The drugs N-Acetylcysteine and Metamizole may falsely depress this assay. Reference Range HDL <40 mg/dL Low HDL Cholesterol HDL >or= 60 mg/dL High HDL Cholesterol LAB L501.6475 Normal CHOL:HDL 2.00 LAB L501.6500 0-130 mg/dL Normal LDL 44 LAB L501.6600 5-40 mg/dL Normal VLDL 14 LAB L504.2610 84-246 U/L Normal LDH 181 Performed By: #### L500.2900 #### [facility] [address] [place], [address] ALLERGIES ALLERGIES DATE TYPE / CODE NAME / CODE REACTION SEVERITY SOURCE 02/19/2018 Drug Penicillins/F Itching Unknown [facility] Allergy/4160 [id number](RXN Hospital 48380(SNOMED ORM) Repository CT) 08/11/2017 Drug No Known Unknown [facility] Allergy/4160 Allergies/F00 Hospital 09003(SNOMED 7231285(RXNOR Repository CT) M) ENCOUNTERS ENCOUNTERS ADMIT/DISCHARGE ACCOUNT ADMITTING ENCOUNTER LOCATION SOURCE NUMBER CLASS 02/19/2018 [id number] Ambulatory [place] 5 [facility] ing:LAB Repository 02/19/2018/ [id number] Ambulatory B[facility] [place] [facility] 12/17/2017 [id number] Ambulatory [place] 4 [facility] ing:LAB Repository 12/17/2017/ [id number] Ambulatory BMSBuilding:B [place] 8 7 [facility] Repository 11/16/2017/ [id number] Emergency [place] 8 7 [facility] ing:ED Repository 08/25/2017/ [id number] Emergency [place] 8 7 [facility] ing:ED Repository 08/11/2017 [id number] Ambulatory [place] 6 [facility] ing:LABSPEC Repository 08/11/2017/ [id number] Ambulatory BMSBuilding:B [place] [facility] 9 [facility] Repository 08/04/2017 [id number] Ambulatory [place] 0 [facility] ing:EMPH Repository PAYERS PAYERS ENCOUNTER GUARANTOR PAYER SUBSCRIBER SOURCE 02/19/2018 NEIDA Silva Primary Insurance:[employer] NEIDA Quigley [id number] [facility] ESSGRISELDABURNDOB: [facility] [place] CLEMENT [id number] [address]Myh: Number: Repository [id number] (HP) Date:4754-62-80BB [address], [place] [address]BR: CHECK WEBSITE 02/19/2018 Secondary NOT GIVENUNK [place] Insurance:SELF PAY [facility] Number: Effective Repository Date:2018-02-19 02/19/2018 NEIDA E Primary Insurance:[employer] NEIDA Ricardo [place] [id number] [facility] [id number] [address]Syp: Number: Repository [id number] (HP) Date:8439-02-29WW [address] [address], [place] [address]YQ: CHECK WEBSITE 02/19/2018 Secondary NOT GIVENUNK [place] Insurance:SELF PAY [facility] Number: Effective Repository Date:2018-02-19 12/17/2017 NEIDA E Primary Insurance:[employer] NEIDA Ricardo [place] [id number] [facility] [id number] [address]Tel: Number: Repository [id number] (HP) Date:4982-82-21WJ [address] [address], [place] [address]XK: CHECK WEBSITE 12/17/2017 Secondary NOT GIVENUNK [place] Insurance:SELF PAY [facility] Number: Effective Repository Date:2017-12-17 12/17/2017 NEIDA E Primary Insurance:[employer] NEIDA Silva [place] [id number] [facility] 5421-10-65YLWArtesia [facility] Hospital [address]Yqm: Number: Repository [id number] (HP) Date:4115-92-34XJ [address] [address], [place] [address]PI: CHECK WEBSITE 12/17/2017 Secondary NOT GIVENUNK [place] Insurance:SELF PAY [facility] Number: Effective Repository Date:2017-12-17 11/16/2017 NEIDA E Primary Insurance:[employer] NEIDA E [place] [id number] [facility]B: [facility] MARIPOSA CLEMENTSouth[facility] Hospitaljens [id number] General Hospital [address]Ivw: Number: Repository [id number] (HP) Date:3458-18-75LW [address] [address], [place] [address]WJ: CHECK WEBSITE 11/16/2017 Secondary NOT GIVENUNK [place] Insurance:SELF PAY [facility] Number: Effective Repository Date:2017-11-16 08/25/2017 NEIDA E Primary Insurance:[employer] NEIDA Silva [place] [id number] [facility]: [facility] SHIREEN PIERCE [facility] [id number] General Hospital [address]Tvn: Number: Repository [id number] (HP) Date:0103-46-29[address] [address]VRGCRXRS, [place] [address]DW: CHECK WEBSITE 08/25/2017 Secondary NOT GIVENUNK [place] Insurance:SELF PAY [facility] Number: Effective Repository Date:2017-08-25 08/11/2017 NEIDA E Primary Insurance:[employer] NEIDA E [place] [id number] [facility]: [facility] SHIREEN PIERCE [facility] [id number] General Hospital [address]Ffi: Number: Repository [id number] (HP) Date:0743-59-56RA [address] [address], [place] [address]GN: CHECK WEBSITE 08/11/2017 Secondary NOT GIVENUNK [place] Insurance:SELF PAY [facility] Number: Effective Repository Date:2017-08-11 08/11/2017 NEIDA E Primary Insurance:[employer] NEIDA [place]oster [id number] [facility] TEXASB: [facility] SHIREEN PIERCE [facility] [id number] General Hospital [address]Xvn: Number: Repository [id number] (HP) Date:3843-20-86YP [address] [address]AVDFUOCWW, [place] [address]RP: CHECK WEBSITE 08/11/2017 Secondary NOT GIVENEMILE [place] Insurance:SELF PAY [facility] Number: Effective Repository Date:2017-06-01 08/04/2017 NEIDA Primary NOT GIVENUNK [place] PORTILLO78 [place] Insurance:SELF PAY [address] [address]Kbc: Number: Effective Repository Date:2017-08-04 ()
== END ==
PROVIDERS: Family Provider Family Medicine; PCP Family Medicine; Referring Provider Obstetrics & Gynecology; Visit Provider Obstetrics & Gynecology
DX: Z34.90 Encounter for supervision of normal pregnancy, unspecified, unspecified trimester (principal)
CPT/HCPCS: 36415; 85025; 86592; 86703; 86762; 86850; 86900; 87086; 87340; 87491; 87591

== ENCOUNTER → 2018-06-21 10:58 | Outpatient (CLI) | payer OTHER, SELFPAY ==
[2018-06-21 10:14] VITALS: BMI 25.5
[2018-06-21 12:09] LABS: Absolute Lymphocyte Count 1.79 X10^3/ul (0.83-4.51); Absolute Neutrophil Count 10.7 X10^3/uL (2.0-7.7); Basophil# 0.02 X10^3/uL; Basophil% 0.1 % (0-1); Eosinophil# 0.09 X10^3/uL; Eosinophils% 0.7 % (0-5); Hematocrit 35.2 % (37-47); Hemoglobin 11.8 g/dl (12.0-15.0); Lymphocyte # 1.79 X10^3/ul (4.0); Mean Corp Hgb Conc 33.5 g/gl (32-36); Mean Corpuscular Hgb 30.1 pg (27.0-32.0); Mean Corpuscular Volume 89.8 fL (81-99); Mean Platelet Vol. 9.5 fl (6.2-12.0); Neutrophil # 10.71 X10^3/uL (2.7-7.7); Neutrophil % 77.6 % (47-70); Platelet Count 232 K/mm3 (150-450); RBC Distribution Width CV 13.8 % (11.6-14.6); RBC Distribution Width SD 45.1 fl (35.1-43.9); Red Blood Count 3.92 M/mm3 (4.2-5.4); White Blood Count 13.8 K/mm3 (4.4-11.0)
[2018-06-21 12:11] LABS: POSITIVE COUNT NO; POSITIVE DIFFERENTIAL NO; POSITIVE MORPHOLOGY NO
[2018-06-21 12:45] LABS: Glucose Challenge Gest 1H 50g 104 mg/dL (70-140)
== END ==
PROVIDERS: Family Provider Family Medicine; PCP Family Medicine; Referring Provider Obstetrics & Gynecology; Visit Provider Obstetrics & Gynecology
DX: Z34.90 Encounter for supervision of normal pregnancy, unspecified, unspecified trimester (principal)
CPT/HCPCS: 36415; 82950; 85025

== ENCOUNTER → 2018-08-31 | Outpatient (CLI) | payer OTHER, SELFPAY ==
[2018-08-31 12:00] VITALS: BMI 26.2
== END | disposition home or self-care (01) ==
LOC: LABSPEC 13:46
PROVIDERS: Family Provider Family Medicine; PCP Family Medicine; Referring Provider Obstetrics & Gynecology; Visit Provider Obstetrics & Gynecology
DX: O26.893 Other specified pregnancy related conditions, third trimester (principal); R30.0 Dysuria; Z3A.36 36 weeks gestation of pregnancy
CPT/HCPCS: 87081; 87086

== ENCOUNTER 2018-09-02 09:25 | Outpatient (CLI) | payer OTHER, SELFPAY ==
[2018-08-31 12:00] VITALS: BMI 26.2
[2018-09-02 10:05] VITALS: BMI 26.6
[2018-09-02 11:05] LABS: Absolute Lymphocyte Count 1.94 X10^3/ul (0.83-4.51); Absolute Neutrophil Count 8.9 X10^3/uL (2.0-7.7); Basophil# 0.02 X10^3/uL; Basophil% 0.2 % (0-1); Eosinophil# 0.07 X10^3/uL; Eosinophils% 0.6 % (0-5); Hematocrit 36.6 % (37-47); Hemoglobin 12.5 g/dl (12.0-15.0); Lymphocyte # 1.94 X10^3/ul (4.0); Lymphocyte % 16.5 % (19-41); Mean Corp Hgb Conc 34.2 g/gl (32-36); Mean Corpuscular Hgb 29.1 pg (27.0-32.0); Mean Corpuscular Volume 85.3 fL (81-99); Mean Platelet Vol. 9.8 fl (6.2-12.0); Monocyte# 0.84 X10^3/uL; Monocyte% 7.1 % (0-10); Neutrophil # 8.88 X10^3/uL (2.7-7.7); Neutrophil % 75.3 % (47-70); Platelet Count 247 K/mm3 (150-450); RBC Distribution Width CV 13.1 % (11.6-14.6); RBC Distribution Width SD 40.1 fl (35.1-43.9); Red Blood Count 4.29 M/mm3 (4.2-5.4); White Blood Count 11.8 K/mm3 (4.4-11.0)
[2018-09-02 11:06] LABS: POSITIVE COUNT NO; POSITIVE DIFFERENTIAL NO; POSITIVE MORPHOLOGY NO
[2018-09-02 11:42] LABS: Fibrinogen 457 mg/dl (203-444)
[2018-09-02] MEDS: Betamethasone/Betamethasone 30 MG/5 ML Vial 12 MG IM (12:50)
--- NOTE | 2018-09-02 13:39 | US_ITS ---
STUDY: OBSTETRICAL ULTRASOUND - BIOPHYSICAL PROFILE REASON FOR EXAM: Female, 28 years old. well being. LMP: December 20, 2017. PRIOR ULTRASOUND: None. TECHNIQUE: Transabdominal TECHNICAL QUALITY: Adequate. FINDINGS: There is a single intrauterine fetus. The fetus is in a breech presentation. There is demonstrated cardiac activity with a heart rate of 119 bpm. There is a normal amniotic fluid volume. The largest amniotic fluid pocket measures 5.4 cm x 5.3 cm. The amniotic fluid index (ELVIE) is 14.77 cm. The placenta is anterior in location and is not low lying. There are Grade 3 placental changes. The cervical length measures 1.9 cm. The cervix is open. Gender: Male BIOPHYSICAL PROFILE: Breathing Movements (FBM): 2 Gross Body Movements (GBM): 2 Tone (FT): 2 Amniotic Fluid Volume (AFV): 2 TOTAL SCORE: 8 / 8 US/Biophysical Prof W/O Non Stres IMPRESSION: Normal biophysical profile of 8/8. The cervical length measures 1.9 cm. The cervix is open. Electronically Signed: Barrie Armstrong, at 15:21 EDT , Service support ,
--- NOTE | 2018-09-05 04:36 | OB.TRI.PN ---
Progress Notes Date of Service: 09/03/18 Progress Note: Patient presents for threatened labor. Patient was evaluated in July no cervical change but was lary regularly. There was one spontaneous decelerations and therefore BPP was done which was 8 out of 8. Patient is breech and declined external cephalic version. heart tone 130 moderate variability reactive 1 isolated variable deceleration now resolved and no decelerations present category 1 tracing [place]: 2 to 4 minutes Assessment and plan threatened labor, reassuring status and no cervical change after prolonged monitoring. Celestone given. Laboratory Studies: Laboratory Tests 09/02/18 09/02/18 Range/Units 10:50 10:50 WBC 11.8 H (4.4-11.0) K/mm3 RBC 4.29 (4.2-5.4) M/mm3 Hgb 12.5 (12.0-15.0) g/dl Hct 36.6 L (37-47) % MCV 85.3 (81-99) fL MCH 29.1 (27.0-32.0) pg MCHC 34.2 (32-36) g/gl RDW 13.1 (11.6-14.6) % RDW Differential 40.1 (35.1-43.9) fl Plt Count 247 (150-450) K/mm3 MPV 9.8 (6.2-12.0) fl Immature Gran % (Auto) 0.300 (0.0-0.9) % Neut % (Auto) 75.3 H (47-70) % Lymph % (Auto) 16.5 L (19-41) % [place] % (Auto) 7.1 (0-10) % Eos % (Auto) 0.6 (0-5) % Baso % (Auto) 0.2 (0-1) % Absolute Neuts (auto) 8.9 H (2.0-7.7) X10^3/uL Absolute Lymphs (auto) 1.94 (0.83-4.51) X10^3/ul Total Counted Not Reportable Fibrinogen 457 H (203-444) mg/dl
== END 2018-09-02 17:15 | disposition home or self-care (01) ==
LOC: WPOUT 09:55 → WP 09:55
PROVIDERS: Family Provider Family Medicine; PCP Family Medicine; Referring Provider Obstetrics & Gynecology; Visit Provider Obstetrics & Gynecology
DX: O60.00 Preterm labor without delivery, unspecified trimester (principal); Z3A.00 Weeks of gestation of pregnancy not specified
CPT/HCPCS: 36415; 59025; 59050; 76819; 85025; 85384; 96372; 99218; G0378; J0702

== ENCOUNTER 2018-09-03 13:20 | Outpatient (CLI) | payer OTHER, SELFPAY ==
[2018-09-02 10:05] VITALS: BMI 26.6
[2018-09-03 13:33] VITALS: BMI 26.9
[2018-09-03] MEDS: Betamethasone/Betamethasone 30 MG/5 ML Vial 12 MG IM (13:40)
== END 2018-09-03 13:42 | disposition home or self-care (01) ==
LOC: LAB 13:28 → WP 13:29
PROVIDERS: Family Provider Family Medicine; PCP Family Medicine; Referring Provider Obstetrics & Gynecology; Visit Provider Obstetrics & Gynecology
DX: O60.03 Preterm labor without delivery, third trimester (principal); Z3A.00 Weeks of gestation of pregnancy not specified
CPT/HCPCS: 96372; 99218; G0378; J0702

== ENCOUNTER 2018-09-04 13:35 | Inpatient (IN) | payer OTHER, SELFPAY ==
[2018-09-03 13:33] VITALS: BMI 26.9
[2018-09-04] VITALS (14 sets, daily range): BP systolic 102–133; BP diastolic 43–78; PULSE 60–76; RESP 12–16; TEMP 36.2–36.9; O2SAT 96–100; BMI 27.5
[2018-09-04 14:40] LABS: Absolute Lymphocyte Count 1.86 X10^3/ul (0.83-4.51); Absolute Neutrophil Count 19.1 X10^3/uL (2.0-7.7); Basophil# 0.01 X10^3/uL; Differential Indicated SCAN CRITERIA MET; Eosinophil# 0.01 X10^3/uL; Hematocrit 38.2 % (37-47); Hemoglobin 13.1 g/dl (12.0-15.0); Lymphocyte # 1.86 X10^3/ul (4.0); Lymphocyte % 8.1 % (19-41); Mean Corp Hgb Conc 34.3 g/gl (32-36); Mean Corpuscular Volume 87.6 fL (81-99); Mean Platelet Vol. 9.3 fl (6.2-12.0); Monocyte# 1.76 X10^3/uL; Monocyte% 7.7 % (0-10); Neutrophil % 83.5 % (47-70); POSITIVE COUNT NO; POSITIVE DIFFERENTIAL YES; POSITIVE MORPHOLOGY NO; Platelet Count 256 K/mm3 (150-450); RBC Distribution Width CV 13.2 % (11.6-14.6); RBC Distribution Width SD 42.3 fl (35.1-43.9); Red Blood Count 4.36 M/mm3 (4.2-5.4); White Blood Count 22.9 K/mm3 (4.4-11.0)
[2018-09-04 15:00] LABS: Differential Comment SCANNED
[2018-09-04] MEDS: Lactated Ringers 1,000 ML 999 ML IV (15:08)
[2018-09-04] MEDS: Sodium Citrate/Citric Acid 30 ML UDC PO (15:08)
--- NOTE | 2018-09-04 15:20 | HP.PCM_ITS ---
- Problem List (1) Breech presentation Status: Acute (2) premature rupture of membranes (PPROM) with unknown onset of labor Status: Acute (3) Status: Acute Qualifiers: Comment: genetic, carrier, and ntd screening declined. anatomy scan- sub optimal reassess in 4 weeks. Adequate growth at reassessment (4) Supervision of normal Status: Acute Qualifiers: Comment: PRR GREGORIO 09/26/18 boy Rogelio Abner History Date of Admission: 09/04/18 Final GREGORIO: 09/26/18 Gestational age: 36 Weeks and 6 Days History of this : This is a 28 year-old, , at 36 weeks gestational age presents PPROM clear fluid and breech presentation. she denies any vb admits good fm has occasional ctx. she is 48 hours after initial dose of celestone and did receive two doses Surgical History: Surgical History (Last Reviewed 08/31/18 @ 11:33 by Concepción Clark) History of wisdom tooth extraction K08.409 Hx of LASIK Z98.890 Allergies Penicillins [PCN] Adverse Reaction (Verified 09/03/18 13:35) Itching Home Medications: Home Medications vitamin #56-iron 35 mg and 5 mg-folic acid 1 mg-dha capsule 1 cap PO DAILY 02/19/18 famotidine 10 mg tablet 10 mg PO .prn tab 07/19/18 Smoking Status: Never smoker Number of Fetus(es): 1 Heart Tracin moderate variability reactive no decelerations category I tracing [place]: no regular History Past Pregnancies: Past Pregnancies Delivery Date Name GA/Weeks Outcome Route Weight Gender Labor Length Anesthesia Delivery Location Provider FOB Labs: Mom's Labs & Results 09/04/18 09/04/18 14:25 14:25 WBC 22.9 H RBC 4.36 Hgb 13.1 Hct 38.2 MCV 87.6 MCH 30.0 MCHC 34.3 RDW 13.2 RDW Differential 42.3 Plt Count 256 MPV 9.3 Immature Gran % (Auto) 0.700 Neut % (Auto) 83.5 H Lymph % (Auto) 8.1 L [place] % (Auto) 7.7 Eos % (Auto) 0.0 Baso % (Auto) 0.0 Absolute Neuts (auto) 19.1 H Absolute Lymphs (auto) 1.86 Total Counted Not Reportable Differential Comment SCANNED Blood Type Pending Antibody Screen Pending Course Did the patient receive Yes care? Labs Blood Type: O RH: POSITIVE RPR/VDRL/Syphilis Nonreactive Rubella status Immune HbSAg Negative Date Done: 02/19/18 Chlamydia Negative Gonorrhea Negative HIV/AIDS Non-Reactive Current Obstetrical History Gestational Diabetes No Incompetent Cervix No Infertility No IUGR No Macrosomia No Hypertension/Pre-eclampsia No Placenta Previa/Abruption No PTL/PROM No Uterine anomaly No Oligohydramnios No Polyhydramnios No Multiple gestation No Past Medical History Asthma No Diabetes No Hypertension No Heart disease No Mitral valve prolapse No Neurologic/Seizure disorder/ No Migraines Kidney disease No Liver disease No Varicosities No Clotting disorders/Hx of DVT No Thyroid Dysfunction No Other medical diseases Yes: IBS Psychiatric disorders No Major trauma No Abnormal PAP smear No Sleep apnea No Mammogram in the last 2 years No Medications Taken During Reason for taking medication [ 09/02 and 09/03 Celestone] Social History Marital Status: Alleged father Abner Hx Smoking No Smoking Status Never smoker Expected Delivery Method: Spontaneous Vaginal Review of Systems Constitutional: Denies: Fever, Malaise Eyes: Denies: Blurred vision, Vision Change HEENT: Denies: Head Aches, Visual Changes Cardiovascular: Denies: Chest Pain, Palpitations Respiratory: Denies: Cough, Shortness of Breath, Wheezing Gastrointestinal: Denies: Abdominal Pain, Diarrhea, Nausea, Vomiting Genitourinary: Denies: Dysuria, Hematuria Gynecological: Reports: Vaginal discharge Musculoskeletal: Denies: Joint Pain, Muscle pain Skin: Denies: Lesions, Rash Neurological: Denies: Blurred vision, Focal weakness, Headaches Psychiatric: Denies: Anxiety, Depression Endocrine: Denies: Heat/ Cold Intolerance Hematologic/ Lymphatic: Denies: Easy Bruising, Easy Bleeding Physical Exam General: Alert, Cooperative, No apparent distress HEENT: Atraumatic, Normocephalic. Negative for: Thyromegaly, Lymphadenopathy Cardiovascular: Regular rate Lungs: Normal air movement Abdomen: Soft, Non Tender, Gravid Neurological: Deep Tendon Reflexes 2+/4 and Symmetrical, Neuro grossly intact. Negative for: Clonus CONTRACT ADMINISTRATIVE ASSISTANT: Normal external genitalia. Negative for: Vulvar lesions Estimated gestational size: Appropriate for gestational size Presentation: Breech Cervix Dilation (cm): 2.5 Assessment/Plan All Active Problems (Last Reviewed 08/31/18 @ 11:33 by Concepción Clark) Breech presentation (Acute) premature rupture of membranes (PPROM) with unknown onset of labor (Acute) (Acute) Supervision of normal (Acute) Lead exposure (Resolved) Low lying placenta nos or without hemorrhage, second trimester (Resolved) This is a 28 year-old, , at 36 weeks gestational age presents PPROM breech plan primary LTCS. discussed surgical risks including risks of anesthesia, infection, bleeding, injury to bowel, bladder or blood vessels, and patient wishes to proceed with surgery. s/p celestone x 2
--- NOTE | 2018-09-04 15:20 | PCM.OPRPT ---
Problem List (1) Breech presentation Status: Acute (2) premature rupture of membranes (PPROM) with unknown onset of labor Status: Acute (3) Status: Acute Qualifiers: Comment: genetic, carrier, and ntd screening declined. anatomy scan- sub optimal reassess in 4 weeks. Adequate growth at reassessment (4) Supervision of normal Status: Acute Qualifiers: Comment: PRR GREGORIO 09/26/18 boy Rogelio Abner Delivery Classification: JOSE Final GREGORIO: 09/26/18 Gestational age: 36 Weeks and 6 Days Indications: title assistant Hayley Mcdaniels Indications for : Breech, - - pprom Description of Procedure: The patient is a 28-year-old G1, P0 at 36 weeks 6 days presented with PPROM and breech presentation therefore we will proceed with a primary . Spinal anesthesia was placed without difficulty. Allen catheter was placed. The patient was placed in the dorsal supine position with leftward tilt. Patient was prepped and draped in the normal sterile fashion. Pfannenstiel skin incision was made with the scalpel and carried through to the underlying layer of fascia with the scalpel. Fascia was nicked in the midline and the incision extended laterally. The rectus bellies were dissected off superiorly and inferiorly with out complication both sharply and bluntly. The peritoneum was entered digitally. The incision was stretched and a low transverse uterine incision was made with the scalpel. The 's head was delivered atraumatically followed by the anterior and posterior shoulders without complication the rest of the delivered. The cord was clamped and cut and the infant was handed off to awaiting nurse. The placenta was delivered spontaneously immediately following and was noted to be intact and have a three-vessel cord. The uterus was exteriorized cleared of all clots and debris, and the incision was closed in a double layer closure using #1 Monocryl. The uterus was returned to the maternal abdomen and gutters were cleared of all clots and debris. The ovaries and fallopian tubes were noted to be within normal limits. The peritoneum was closed with 3-0 Monocryl in a running fashion. Fascia was closed with 0 PDS in a running fashion. Subcutaneous tissue was copiously irrigated and the skin was closed with 3-0 Monocryl in a subcuticular fashion. Steri-Strips and Mepilex dressing were applied without complication. Patient was taken to recovery in stable condition. Amniotic Membrane Rupture Type: Spontaneous Amniotic Fluid Description: Clear Placenta Disposition: [facility] Specimen(s) sent to pathology: none Drain: Allen to straight drain Cord Entanglement: None Esitmated Blood Loss (ml): 300 Gender: Male Delayed cord clamping: Yes Pre-op Antibiotic Given: Ancef 2 grams IV x1 Complications: None - Admit VTE Documentation VTE Present on Admission: No VTE Mechan Device Prophylaxis: SCD's
[2018-09-04] MEDS: Lactated Ringers 1,000 ML 150 ML IV (16:00)
[2018-09-04] MEDS: Lactated Ringers 1,000 ML 100 ML IV ×2 (16:30→23:15)
[2018-09-04] MEDS: Cefazolin 2 GM in 0.9% Normal Saline 100 ML IV (16:41)
[2018-09-04] MEDS: Acetaminophen 500 MG Tablet 1000 MG PO (17:47)
[2018-09-04] MEDS: Oxytocin 30 units/NS 500 ml 30 UNITS/500 ML IV.SOLN 167 UNITS IV (18:02)
[2018-09-04] MEDS: Ketorolac 30 MG/ML Syringe IV (22:59)
[2018-09-05] VITALS (12 sets, daily range): BP systolic 103–123; BP diastolic 53–82; PULSE 60–80; RESP 16–18; TEMP 36.5–36.9; O2SAT 96–99
[2018-09-05] MEDS: 0.9% Saline Lock 10 ML Syringe IV ×3 (01:56→12:36)
[2018-09-05] MEDS: Acetaminophen 500 MG Tablet 1000 MG PO ×3 (02:55→23:40)
[2018-09-05] MEDS: Ketorolac 30 MG/ML Syringe IV ×2 (05:35→12:36)
[2018-09-05 05:48] LABS: Hematocrit 30.5 % (37-47); Hemoglobin 10.2 g/dl (12.0-15.0); Mean Corp Hgb Conc 33.4 g/gl (32-36); Mean Corpuscular Hgb 29.3 pg (27.0-32.0); Mean Corpuscular Volume 87.6 fL (81-99); Mean Platelet Vol. 9.7 fl (6.2-12.0); Platelet Count 218 K/mm3 (150-450); RBC Distribution Width CV 13.2 % (11.6-14.6); RBC Distribution Width SD 40.7 fl (35.1-43.9); Red Blood Count 3.48 M/mm3 (4.2-5.4); White Blood Count 18.4 K/mm3 (4.4-11.0)
[2018-09-05 06:07] LABS: Scan Indicated on CBC? Y/N NO
--- NOTE | 2018-09-05 06:16 | PCM.PN.OB ---
Patient Problems: Active and Suspected Problems (Last Reviewed 08/31/18 @ 11:33 by Concepción Clark) Breech presentation (Acute) discussed ECV and patient declined premature rupture of membranes (PPROM) with unknown onset of labor (Acute) Subjective: doing well no complaints pain controlled no CP SOB N V ambulating well tolerating po lochia moderate, going well - Physical Exam General: Alert, Oriented x3 Vital Signs Temp Pulse Resp BP Pulse Ox 98.1 F 66 16 110/53 L 99 09/05/18 01:00 09/05/18 01:00 09/05/18 03:00 09/05/18 01:00 09/05/18 03:00 Oxygen Delivery Method Room Air Weight: 155 lb 3.287 oz Body Mass Index (BMI) 27.5 Intake and Output for Last 24 Hours 09/03/18 09/04/18 09/05/18 23:59 23:59 23:59 Intake Total 3127 / 3127 1200 / 1200 Output Total 1900 / 1900 1000 / 1000 Balance 1227 / 1227 200 / 200 Laboratory Tests Past 24 Hrs 09/04/18 09/04/18 09/05/18 14:25 14:25 05:15 WBC 22.9 H 18.4 H RBC 4.36 3.48 L Hgb 13.1 10.2 L Hct 38.2 30.5 L MCV 87.6 87.6 MCH 30.0 29.3 MCHC 34.3 33.4 RDW 13.2 13.2 RDW Differential 42.3 40.7 Plt Count 256 218 MPV 9.3 9.7 Immature Gran % (Auto) 0.700 Neut % (Auto) 83.5 H Lymph % (Auto) 8.1 L [place] % (Auto) 7.7 Eos % (Auto) 0.0 Baso % (Auto) 0.0 Absolute Neuts (auto) 19.1 H Absolute Lymphs (auto) 1.86 Total Counted Not Reportable Differential Comment SCANNED Blood Type O POSITIVE Antibody Screen NEGATIVE Medical Necessity - Tobacco Use Smoking Status: Never smoker Assessment/Plan All Active Problems (Last Reviewed 08/31/18 @ 11:33 by Concepción Clark) Breech presentation (Acute) premature rupture of membranes (PPROM) with unknown onset of labor (Acute) (Acute) Supervision of normal (Acute) Lead exposure (Resolved) Low lying placenta nos or without hemorrhage, second trimester (Resolved) s/p LTCS PPD # 1 1. routine post care 2. breast feeding- support given 3. rh positive 4. rubella immune
[2018-09-05] MEDS: Senna/Docusate Sodium 1 Tablet PO (15:34)
[2018-09-05] MEDS: Naproxen 250 MG Tablet PO (18:50)
[2018-09-05] MEDS: oxyCODONE 5 MG Tablet PO ×2 (20:05→21:01)
[2018-09-06] MEDS: oxyCODONE 5 MG Tablet PO ×5 (01:43→18:42)
[2018-09-06 01:45] VITALS: BP 115/73; PULSE 69; RESP 16; TEMP 36.6; O2SAT 99
[2018-09-06] MEDS: Naproxen 250 MG Tablet PO ×3 (04:08→22:55)
[2018-09-06] MEDS: Senna/Docusate Sodium 1 Tablet PO (06:20)
--- NOTE | 2018-09-06 08:05 | PN.OBGYN_ITS ---
Patient Problems: Active and Suspected Problems (Last Reviewed 08/31/18 @ 11:33 by Concepción Clark) Breech presentation (Acute) discussed ECV and patient declined premature rupture of membranes (PPROM) with unknown onset of labor (Acute) Subjective: doing well no complaints pain controlled no CP SOB N V ambulating well tolera ting po lochia moderate, going well - Physical Exam General: Alert, Oriented x3 Abdomen: Soft, Non Tender, Non-Distended, - - Dressing dry and intact without new drainage. FF below U Vital Signs Temp Pulse Resp BP Pulse Ox 97.9 F 69 16 115/73 99 09/06/18 01:45 09/06/18 01:45 09/06/18 01:45 09/06/18 01:45 09/06/18 01:45 Oxygen Delivery Method Room Air Weight: 155 lb 3.287 oz Body Mass Index (BMI) 27.5 Intake and Output for Last 24 Hours 09/04/18 09/05/18 09/06/18 23:59 23:59 23:59 Intake Total 3127 / 3127 4650 / 4650 Output Total 1900 / 1900 6300 / 6300 Balance 1227 / 1227 -1650 / -1650 Medical Necessity - Tobacco Use Smoking Status: Never smoker Assessment/Plan All Active Problems (Last Reviewed 08/31/18 @ 11:33 by Concepción Clark) Breech presentation (Acute) premature rupture of membranes (PPROM) with unknown onset of labor (Acute) (Acute) Supervision of normal (Acute) Lead exposure (Resolved) Low lying placenta nos or without hemorrhage, second trimester (Resolved) s/p LTCS PPD # 2 for breech presentation. 1. routine post care 2. breast feeding- support given 3. rh positive 4. rubella immune
[2018-09-06 08:30] VITALS: BP 123/64; PULSE 67; RESP 20; TEMP 36.6
[2018-09-06] MEDS: Acetaminophen 500 MG Tablet 1000 MG PO ×2 (08:44→17:36)
[2018-09-06 13:49] VITALS: BP 114/60; PULSE 66; RESP 16; TEMP 36.7
[2018-09-06 20:45] VITALS: BP 130/73; PULSE 66; RESP 16; TEMP 37.1
[2018-09-07] MEDS: Acetaminophen 500 MG Tablet 1000 MG PO ×2 (01:22→12:17)
[2018-09-07 01:24] VITALS: BP 120/61; PULSE 60; RESP 16; TEMP 36.6
--- NOTE | 2018-09-07 01:36 | NURSING ---
0100 pt informed she is to eat or drink nothing until instructed otherwise. states understanding. [address] contrast to drink instructed to do over 30min but to drink nothing else. states understanding.
[2018-09-07] MEDS: oxyCODONE 5 MG Tablet PO ×2 (03:35→08:54)
--- NOTE | 2018-09-07 07:44 | DS.PCM_ITS ---
Discharge Date and Diagnosis - Problem List Patient Problems: Active and Suspected Problems (Last Reviewed 08/31/18 @ 11:33 by Concepción Clark) Breech presentation (Acute) discussed ECV and patient declined premature rupture of membranes (PPROM) with unknown onset of labor (Acute) Date of Admission: 09/04/18 - Primary Discharge Diagnosis Active and Suspected Problems (Last Reviewed 08/31/18 @ 11:33 by Concepción Clark) Breech presentation (Acute) discussed ECV and patient declined premature rupture of membranes (PPROM) with unknown onset of labor (Acute) Hospital Course and Treatment Operations: - - LTPCS for breech Summary of Care Provided: The patient is a 28 year old F Patient underwent section with routine recovery, return of normal bowel and bladder function. Ambulating, voiding and tolerating PO. Stable for discharge home POD #3. [] Patient Problems: Active and Suspected Problems (Last Reviewed 08/31/18 @ 11:33 by Concepción Clark) Breech presentation (Acute) discussed ECV and patient declined premature rupture of membranes (PPROM) with unknown onset of labor (Acute) - Physical Exam Vital Signs Temp Pulse Resp BP Pulse Ox 97.9 F 60 16 120/61 99 09/07/18 01:24 09/07/18 01:24 09/07/18 01:24 09/07/18 01:24 09/06/18 01:45 Oxygen Delivery Method Room Air Weight: 155 lb 3.287 oz Body Mass Index (BMI) 27.5 Intake and Output for Last 24 Hours 09/05/18 09/06/18 09/07/18 23:59 23:59 23:59 Intake Total 4650 / 4650 Output Total 6300 / 6300 Balance -1650 / -1650 Home Medications: Medications to take at Discharge vitamin #56-iron 35 mg and 5 mg-folic acid 1 mg-dha capsule 1 cap PO DAILY 02/19/18 famotidine 10 mg tablet 10 mg PO .prn tab 07/19/18 Naproxen [Naprosyn] 500 mg PO BID PRN PRN #60 tab 09/07/18 Oxycodone HCl/Acetaminophen [Percocet 5/325] 1 - 2 tablet PO Q4H PRN PRN 3 Days #15 tablet 09/07/18 Following Prescrptions Were Given to Patient: Naproxen [Naprosyn] 500 mg PO BID PRN PRN #60 tab PRN Reason: Pain Transmission Status: Pending to [facility] Oxycodone HCl/Acetaminophen [Percocet 5/325] 1 - 2 tablet PO Q4H PRN PRN 3 Days #15 tablet PRN Reason: Pain Transmission Status: Sent to [facility] Primary Care Physician: Yao Hanks MD [Primary Care Provider] - Medical Necessity - Tobacco Use Smoking Status: Never smoker Meaningful Use Info Meaningful Use Diagnoses (Choose all that apply): None applicable
--- NOTE | 2018-09-07 07:46 | PCM.PN.OB ---
Patient Problems: Active and Suspected Problems (Last Reviewed 08/31/18 @ 11:33 by Concepción Clark) Breech presentation (Acute) discussed ECV and patient declined premature rupture of membranes (PPROM) with unknown onset of labor (Acute) Subjective: doing well no complaints pain controlled no CP SOB N V ambulating well tolerating po lochia moderate, going well - Physical Exam General: Alert, Oriented x3 Abdomen: Soft, Non-Distended, - - Dressing dry and intact. FF below U Vital Signs Temp Pulse Resp BP Pulse Ox 97.9 F 60 16 120/61 99 09/07/18 01:24 09/07/18 01:24 09/07/18 01:24 09/07/18 01:24 09/06/18 01:45 Oxygen Delivery Method Room Air Weight: 155 lb 3.287 oz Body Mass Index (BMI) 27.5 Intake and Output for Last 24 Hours 09/05/18 09/06/18 09/07/18 23:59 23:59 23:59 Intake Total 4650 / 4650 Output Total 6300 / 6300 Balance -1650 / -1650 Medical Necessity - Tobacco Use Smoking Status: Never smoker Assessment/Plan All Active Problems (Last Reviewed 08/31/18 @ 11:33 by Concepción Clark) Breech presentation (Acute) premature rupture of membranes (PPROM) with unknown onset of labor (Acute) (Acute) Supervision of normal (Acute) Lead exposure (Resolved) Low lying placenta nos or without hemorrhage, second trimester (Resolved) s/p LTCS PPD # 3 1. routine post care 2. breast feeding- support given 3. rh positive 4. rubella immune 5. home today
--- NOTE | 2018-09-07 07:47 | DCINST_ITS ---
Additional Instructions: If you experience any of the following, contact your healthcare provider. * Bleeding that soaks a pad every hour for 2 hours * Fever 100.4 or higher * Unrelieved incision or abdominal pain * Swelling, redness, discharge or bleeding from your incision or episiotomy site * Your incision begins to separate * Problems urinating (including inability to urinate or burning while urinating). * Visual changes * Severe headache * Flu-like symptoms * Pain or redness in one of both of your breasts * Pain, warmth, tenderness or swelling in your legs, especially the calf area * Frequent nausea and vomiting * Symptoms of depression or anxiety If you experience any of the following, call 911 or go to the nearest Emergency Room. * Chest pain * Problems breathing * Seizure activity * Partial or complete paralysis of a body part, slurred speech, weakness or drooping of the face, or a sudden inability to walk or hold your balance Allergies/Adverse Reactions: Allergies Penicillins [PCN] Adverse Reaction (Verified 09/03/18 13:35) Itching Medications to take at Discharge vitamin #56-iron 35 mg and 5 mg-folic acid 1 mg-dha capsule 1 cap PO DAILY 02/19/18 famotidine 10 mg tablet 10 mg PO .prn tab 07/19/18 Naproxen [Naprosyn] 500 mg PO BID PRN PRN #60 tab 09/07/18 Oxycodone HCl/Acetaminophen [Percocet 5/325] 1 - 2 tablet PO Q4H PRN PRN 3 Days #15 tablet 09/07/18 The following prescriptions were given: Naproxen [Naprosyn] 500 mg PO BID PRN PRN #60 tab PRN Reason: Pain Transmission Status: Pending to [facility] Oxycodone HCl/Acetaminophen [Percocet 5/325] 1 - 2 tablet PO Q4H PRN PRN 3 Days #15 tablet PRN Reason: Pain Transmission Status: Sent to [facility] Follow-Up: Call to make an appointment with your doctor for an incision check in 1-2 weeks. You will also need a 6 week post- follow up appointment. Test results from this visit will be discussed in further detail at your follow- up appointment, if applicable. Primary Care Physician: Yao Hanks MD [Primary Care Provider] -
--- NOTE | 2018-09-07 07:47 | PCM.DCCSEC ---
Additional Instructions: If you experience any of the following, contact your healthcare provider. Bleeding that soaks a pad every hour for 2 hours Fever 100.4 or higher Unrelieved incision or abdominal pain Swelling, redness, discharge or bleeding from your incision or episiotomy site Your incision begins to separate Problems urinating (including inability to urinate or burning while urinating). Visual changes Severe headache Flu-like symptoms Pain or redness in one of both of your breasts Pain, warmth, tenderness or swelling in your legs, especially the calf area Frequent nausea and vomiting Symptoms of depression or anxiety If you experience any of the following, call 911 or go to the nearest Emergency Room. Chest pain Problems breathing Seizure activity Partial or complete paralysis of a body part, slurred speech, weakness or drooping of the face, or a sudden inability to walk or hold your balance Allergies/Adverse Reactions: Allergies Penicillins [PCN] Adverse Reaction (Verified 09/03/18 13:35) Itching Medications to take at Discharge vitamin #56-iron 35 mg and 5 mg-folic acid 1 mg-dha capsule 1 cap PO DAILY 02/19/18 famotidine 10 mg tablet 10 mg PO .prn tab 07/19/18 Naproxen [Naprosyn] 500 mg PO BID PRN PRN #60 tab 09/07/18 Oxycodone HCl/Acetaminophen [Percocet 5/325] 1 - 2 tablet PO Q4H PRN PRN 3 Days #15 tablet 09/07/18 The following prescriptions were given: Naproxen [Naprosyn] 500 mg PO BID PRN PRN #60 tab PRN Reason: Pain Transmission Status: Pending to [facility] Oxycodone HCl/Acetaminophen [Percocet 5/325] 1 - 2 tablet PO Q4H PRN PRN 3 Days #15 tablet PRN Reason: Pain Transmission Status: Sent to [facility] Follow-Up: Call to make an appointment with your doctor for an incision check in 1-2 weeks. You will also need a 6 week post- follow up appointment. Test results from this visit will be discussed in further detail at your follow-up appointment, if applicable. Primary Care Physician: Yao Hanks MD [Primary Care Provider] -
[2018-09-07] MEDS: Senna/Docusate Sodium 1 Tablet PO (08:53)
[2018-09-07] MEDS: Naproxen 250 MG Tablet PO (08:53)
[2018-09-07 09:00] VITALS: BP 122/76; PULSE 63; RESP 18; TEMP 36.3
== END 2018-09-07 13:05 | disposition home or self-care (01) | DRG 788 ==
PROVIDERS: Admitting Provider Obstetrics & Gynecology; Family Provider Family Medicine; PCP Family Medicine; Referring Provider Obstetrics & Gynecology; Visit Provider Obstetrics & Gynecology
DX: O42.013 Preterm premature rupture of membranes, onset of labor within 24 hours of rupture, third trimester (principal); O32.1XX0 Maternal care for breech presentation, not applicable or unspecified; Z3A.36 36 weeks gestation of pregnancy; Z37.0 Single live birth
CPT/HCPCS: 59025; 59050; 85025; 85027; 86850; 86900; 99218; J7120; A4216; G0378; J2405

== ENCOUNTER → 2018-09-10 15:13 | Outpatient (CLI) | payer OTHER, SELFPAY ==
[2018-09-04 14:07] VITALS: BMI 27.5
== END ==
PROVIDERS: Family Provider Family Medicine; PCP Family Medicine; Visit Provider Obstetrics & Gynecology
DX: O92.79 Other disorders of lactation (principal)
CPT/HCPCS: 96152

== ENCOUNTER → 2018-09-17 | Outpatient (CLI) | payer OTHER, SELFPAY ==
[2018-09-17 10:38] VITALS: BMI 27.5
== END | disposition home or self-care (01) ==
LOC: LABSPEC 13:24
PROVIDERS: Family Provider Family Medicine; PCP Family Medicine; Referring Provider Nurse Practitioner Women's Health; Visit Provider Nurse Practitioner Women's Health
DX: R30.0 Dysuria (principal)
CPT/HCPCS: 87086

== ENCOUNTER 2020-02-15 19:09 | Outpatient (RCR) | payer OTHER, SELFPAY ==
[2019-10-24 11:13] VITALS: BMI 27.5
== END 2020-02-20 23:59 ==
LOC: EMPH 19:09
PROVIDERS: PCP Internal Medicine; Visit Provider Family Medicine Geriatric Medicine
DX: Z03.818 Encounter for observation for suspected exposure to other biological agents ruled out (principal)
CPT/HCPCS: 87426

== ENCOUNTER 2020-04-11 07:59 | Outpatient (RCR) | payer OTHER, SELFPAY ==
[2019-10-24 11:13] VITALS: BMI 27.5
== END 2020-04-22 23:59 ==
LOC: EMPH 07:59
PROVIDERS: PCP Internal Medicine; Referring Provider Family Medicine Geriatric Medicine; Visit Provider Family Medicine Geriatric Medicine
DX: Z03.818 Encounter for observation for suspected exposure to other biological agents ruled out (principal)
CPT/HCPCS: 87426

== ENCOUNTER → 2020-04-19 10:17 | Outpatient (CLI) | payer OTHER, SELFPAY ==
[2020-04-19 09:27] VITALS: BMI 21.2
[2020-04-19 11:16] LABS: Absolute Lymphocyte Count 1.52 X10^3/uL (0.83-4.51); Absolute Neutrophil Count 6.2 X10^3/uL (2.0-7.7); Basophil# 0.04 X10^3/uL; Basophil% 0.5 % (0-1); Eosinophil# 0.08 X10^3/uL; Eosinophils% 0.9 % (0-5); Hematocrit 38.2 % (37-47); Hemoglobin 12.6 g/dL (12.0-15.0); Lymphocyte # 1.52 X10^3/ul (4.0); Lymphocyte % 17.8 % (19-41); Mean Corpuscular Hgb 29.2 pg (27.0-32.0); Mean Corpuscular Volume 88.6 fL (81-99); Mean Platelet Vol. 10.1 fl (6.2-12.0); Monocyte# 0.64 X10^3/uL; Monocyte% 7.5 % (0-10); NRBC Flagged by Analyzer 0 % (0-5); Neutrophil # 6.23 X10^3/uL (2.7-7.7); Neutrophil % 73.1 % (47-70); Platelet Count 274 K/mm3 (150-450); Red Blood Count 4.31 M/mm3 (4.2-5.4); White Blood Count 8.5 K/mm3 (4.4-11.0)
[2020-04-19 18:47] LABS: Amphetamine Urine VISTA NEGATIVE (<1000 ng/mL); Barbiturate Urine VISTA NEGATIVE (< 200 ng/mL); Benzodiazepine Urine VISTA NEGATIVE (< 200 ng/mL); Cocaine Urine VISTA NEGATIVE (< 300 ng/mL); Ecstacy Urine VISTA NEGATIVE (< 500 ng/mL); Methadone Urine VISTA NEGATIVE (< 300 ng/mL); PCP Urine VISTA NEGATIVE (< 25 ng/mL); THC Urine VISTA NEGATIVE (< 50 ng/mL); Vista UDS pH Range 6
[2020-04-25 06:07] LABS: Chlamydia By Nucleic Acid AMP Negative (Negative)
[2020-04-25 08:19] LABS: Gonococcus By Nucleic Acid AMP Negative (Negative); HPV Reflexed? NOT INDICATED
[2020-04-25 15:13] LABS: HIV - WCH Non-Reactive (Nonreactive); Hepatitis B Surface Antigen Non-Reactive (Nonreactive); Hepatitis C Antibody Non-Reactive (Nonreactive); Rubella IgG Reactive (Nonreactive)
[2020-04-26 03:03] LABS: Rapid Plasmin Reagin (RPR) NONREACTIVE (NONREACTIVE)
== END ==
PROVIDERS: PCP Internal Medicine; Referring Provider Obstetrics & Gynecology; Visit Provider Obstetrics & Gynecology
DX: Z34.90 Encounter for supervision of normal pregnancy, unspecified, unspecified trimester (principal)
CPT/HCPCS: 36415; 80307; 85025; 86592; 86703; 86762; 86803; 86850; 86900; 86901; 87086; 87340; 87491; 87591; 88175; G0145

== ENCOUNTER → 2020-07-02 08:25 | Outpatient (CLI) | payer OTHER, SELFPAY ==
[2020-05-21 10:54] VITALS: BMI 21.9
[2020-06-18 09:35] VITALS: BMI 23.1
--- NOTE | 2020-07-02 08:27 | US_ITS ---
STUDY: SECOND AND THIRD TRIMESTER OBSTETRICAL ULTRASOUND REASON FOR EXAM: Female, 29 years old anatomy LMP: 02/18/2020. TECHNIQUE: Transabdominal and Transvaginal TECHNICAL QUALITY: Adequate. PRIOR ULTRASOUND: None. FINDINGS: There is a single intrauterine fetus. The fetus is in a breech presentation. There is demonstrated cardiac activity with a heart rate of 148 bpm. There is a normal amniotic fluid volume. The largest amniotic fluid pocket measures 3.4 cm x 6.9 cm. The amniotic fluid index (ELVIE) is normal limits. The placenta is posterior in location and is not low lying. There are Grade 0 placental changes. The cervix measures 3.4 cm in length. The adnexal regions are not visualized. BIOMETRY: BPD: 4.3 cm: 19 weeks, 0 days HC: 16.22 cm: 18 weeks, 6 days AC: 15.45 cm: 20 weeks, 4 days FL: 2.81 cm: 8 weeks, 4 days CI: 78% FL/BPD: 65% FL/HC: FL/AC: 18% HC/AC: 1.05 age by current US: 19 weeks, 0 days. GREGORIO by current US: 11/26/2020. Estimated weight: 306 grams, +/- 46 grams, 66 %. Age by LMP: 19 weeks, 2 days. GREGORIO by LMP: 11/24/2020. ANATOMY: Gender: Male Cranium: Normal lateral ventricles. Normal choroid plexus. Normal cerebellum. Normal cisterna magna. Normal face, nose and lips. Chest: Normal 4-chamber heart. Abdomen/Pelvis: Normal diaphragm. Normal stomach. Normal abdominal wall. Normal cord insertion. Normal 3 vessel cord. Normal kidneys. Normal bladder. Spine: Normal cervical spine. Normal thoracic spine. Normal lumbar spine. Normal sacrum. Extremities: Normal bilateral upper extremities. Normal bilateral lower extremities. IMPRESSION: Single live intrauterine gestation with a mean gestational age of 19 weeks. Electronically Signed: Barrie Armstrong MD at 14:27 EDT , Service support , STUDY: FIRST TRIMESTER OBSTETRICAL ULTRASOUND REASON FOR EXAM: Female, 29 years old. Cervical measurement. LMP: 02/18/2020. TECHNIQUE: Transvaginal TECHNICAL QUALITY: Adequate. PRIOR ULTRASOUND: None. FINDINGS: Transvaginal imaging for measurement of the cervix. The cervix measures 3.4 cm in longitudinal dimension. US/OB Anatomy Scan IMPRESSION: Cervix measures 3.4 cm in longitudinal dimension.. Electronically Signed: Barrie Armstrong MD at 14:28 EDT , Service support ,
== END ==
PROVIDERS: PCP Internal Medicine; Referring Provider Nurse Practitioner Women's Health; Visit Provider Nurse Practitioner Women's Health
DX: Z34.80 Encounter for supervision of other normal pregnancy, unspecified trimester (principal)
CPT/HCPCS: 76805; 76817

== ENCOUNTER → 2020-09-03 06:26 | Outpatient (CLI) | payer OTHER, SELFPAY ==
[2020-08-13 09:04] VITALS: BMI 24.0
[2020-09-03 08:51] LABS: Absolute Neutrophil Count 9.9 X10^3/uL (2.0-7.7); Basophil# 0.04 X10^3/uL; Basophil% 0.3 % (0-1); Eosinophil# 0.12 X10^3/uL; Eosinophils% 0.9 % (0-5); Hematocrit 35.3 % (37-47); Hemoglobin 11.7 g/dL (12.0-15.0); Lymphocyte % 13.4 % (19-41); Mean Corp Hgb Conc 33.1 g/dL (32-36); Mean Corpuscular Hgb 30.3 pg (27.0-32.0); Mean Corpuscular Volume 91.5 fL (81-99); Mean Platelet Vol. 9.7 fl (6.2-12.0); Monocyte# 0.85 X10^3/uL; Monocyte% 6.7 % (0-10); NRBC Flagged by Analyzer 0 % (0-5); Neutrophil # 9.89 X10^3/uL (2.7-7.7); Platelet Count 218 K/mm3 (150-450); RBC Distribution Width CV 12.9 % (11.6-14.6); RBC Distribution Width SD 42.4 fl (35.1-43.9); Red Blood Count 3.86 M/mm3 (4.2-5.4); White Blood Count 12.7 K/mm3 (4.4-11.0)
[2020-09-03 09:07] LABS: Glucose Challenge Gest 1H 50g 129 mg/dL (70-140)
== END ==
PROVIDERS: PCP Internal Medicine; Referring Provider Obstetrics & Gynecology; Visit Provider Obstetrics & Gynecology
DX: Z36.89 Encounter for other specified antenatal screening (principal); Z3A.25 25 weeks gestation of pregnancy
CPT/HCPCS: 36415; 82950; 85025

== ENCOUNTER → 2020-11-02 12:44 | Outpatient (CLI) | payer OTHER, SELFPAY ==
[2020-11-02 11:37] VITALS: BMI 26.7
[2020-11-06 05:07] LABS: Chlamydia By Nucleic Acid AMP Negative (Negative)
[2020-11-07 11:31] LABS: Gonococcus By Nucleic Acid AMP Negative (Negative)
== END ==
PROVIDERS: PCP Internal Medicine; Visit Provider Obstetrics & Gynecology
DX: Z34.80 Encounter for supervision of other normal pregnancy, unspecified trimester (principal)
CPT/HCPCS: 87081; 87491; 87591

== ENCOUNTER → 2020-11-12 14:32 | Outpatient (CLI) | payer OTHER, SELFPAY ==
--- NOTE | 2020-11-12 14:34 | US_ITS ---
STUDY: SECOND AND THIRD TRIMESTER OBSTETRICAL ULTRASOUND - LIMITED REASON FOR EXAM: Female, 30 years old uterine date size discrepancy LMP: 02/18/2020. PRIOR ULTRASOUND: Comparison is made with prior study dated 07/02/2020. TECHNIQUE: Transabdominal TECHNICAL QUALITY: Adequate. FINDINGS: There is a single intrauterine fetus. The fetus is in a breech presentation. There is demonstrated cardiac activity with a heart rate of 150 bpm. There is a normal amniotic fluid volume. The largest amniotic fluid pocket measures 3.4 cm x 3.2 cm. The amniotic fluid index (ELVIE) is 10.43 cm. The placenta is posterior in location and is not low lying. There are Grade 2 placental changes. The cervix was not measured due to position. BIOMETRY: BPD: 9.36 cm: 38 weeks, 0 days HC: 34.18 cm: 39 weeks, 2 days AC: 33.94 cm: 37 weeks, 5 days FL: 7 cm: 35 weeks, 6 days Age by LMP: 38 weeks, 2 days. GREGORIO by LMP: 11/24/2020. age by prior US: 38 weeks, 0 days. GREGORIO by prior US: 11/26/2020. age by current US: 37 weeks, 5 days. GREGORIO by current US: 11/28/2020. Estimated weight: 3238 grams, +/- 486 grams, 45 percentile. US/OB Limited With Biometrics IMPRESSION: Single live intrauterine gestation with a mean gestational age of 38 weeks. The measurements obtained today fall within normal expected range. Electronically Signed: Barrie Armstrong MD at 15:22 EDT , Service support ,
== END ==
PROVIDERS: PCP Internal Medicine; Referring Provider Obstetrics & Gynecology; Visit Provider Obstetrics & Gynecology
DX: O26.849 Uterine size-date discrepancy, unspecified trimester (principal); Z3A.38 38 weeks gestation of pregnancy
CPT/HCPCS: 76816

== ENCOUNTER 2020-11-19 05:30 | Inpatient (IN) | payer OTHER, SELFPAY ==
[2020-11-19] VITALS (18 sets, daily range): BP systolic 87–122; BP diastolic 39–93; PULSE 59–84; RESP 16–18; TEMP 35.9–36.8; O2SAT 96–100; BMI 27.8
[2020-11-19] MEDS: Lactated Ringers 1,000 ML 999 ML IV (06:15)
[2020-11-19 06:38] LABS: Absolute Lymphocyte Count 2.58 X10^3/uL (0.83-4.51); Absolute Neutrophil Count 7.6 X10^3/uL (2.0-7.7); Basophil# 0.06 X10^3/uL; Basophil% 0.5 % (0-1); Eosinophil# 0.13 X10^3/uL; Eosinophils% 1.2 % (0-5); Hematocrit 36.9 % (37-47); Hemoglobin 12.5 g/dL (12.0-15.0); Lymphocyte # 2.58 X10^3/ul (0.83-4.51); Mean Corp Hgb Conc 33.9 g/dL (32-36); Mean Corpuscular Hgb 30.3 pg (27.0-32.0); Mean Corpuscular Volume 89.3 fL (81-99); Mean Platelet Vol. 10.1 fl (6.2-12.0); Monocyte# 0.81 X10^3/uL; Monocyte% 7.2 % (0-10); NRBC Flagged by Analyzer 0 % (0-5); Neutrophil % 67.7 % (47-70); Platelet Count 216 K/mm3 (150-450); RBC Distribution Width CV 12.7 % (11.6-14.6); RBC Distribution Width SD 41.2 fl (35.1-43.9); Red Blood Count 4.13 M/mm3 (4.2-5.4); White Blood Count 11.2 K/mm3 (4.4-11.0)
--- NOTE | 2020-11-19 06:38 | HP.PCM_ITS ---
History and Physical Date of Admission: 11/19/20 Intake Visit Reasons: 38WK OB Chief Complaint: est ob [employer] As[employer] Required: No Is patient in pain?: No Allergies Penicillins [PCN] Adverse Reaction (Verified 10/19/20 14:04) Itching Medications vitamin #56-iron 35 mg and 5 mg-folic acid 1 mg-dha capsule 1 cap PO DAILY 02/19/18 [History Confirmed 11/16/20] cetirizine 10 mg capsule 10 mg PO DAILY PRN 07/16/20 [History Confirmed 11/16/20] Last Menstral Period: 02/18/20 Zika: Zika virus screening: Negative : No [facility] Medical History History of tetanus, diphtheria, and acellular pertussis booster vaccination (Tdap) IBS (irritable bowel syndrome) Surgical History History of History of wisdom tooth extraction Hx of LASIK Family History Mother Breast cancer Grandmother Cancer multiple myeloma Grandfather Diabetes Social History adopted: No household members: family housing: house number of children: 1 current occupational status: employed Smoking Status: Never smoker alcohol intake: current details: social- not while substance use type: does not use caffeine: Yes frequency: daily seatbelt use: always do you feel safe at home: Yes additional social history: Abner- Deckhand Engineer 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 Date Name GA/Weeks Outcome Route Bth Weight Gen Labor Lgth Anesthesia Del Locatn Provider FOB 09/05/18 Rogelio 36 live - full term 5lbs 14oz Male spinal [employer] [facility] Marcanthony Delivery Date: 09/05/18 Breech PPROM Jeni,Vanesa HPI 38WK OB Details: ASHLEY PORTILLO is a 30 year old who presents for routine OB visit. she is still breech and going tohave a RLTCS. OB Visit GREGORIO Calculator Estimated Delivery Date Method Current WG Current Estimate 11/24/20 LMP (Certain) 39w 2d Other Estimates 11/28/20 Ultrasound #1 38w 5d Expected Delivery Route/Plan TOLAC patient counseled regarding risks/benefits of trial of labor versus repeat . ACOG/uptodate education given to patient. 70 % likelihood of success per calculator TOLAC consent form signed: 10/05 Labor Preferences- labor support person: abner labor intervention preferences: [] pain management options preferred: epidural cut cord/dad catch: yes : yes PP control planned: NFP discussed possible routes of delivery and associated risks: [] special requests: [] Specific Issue/Plans covid status: pos dec 2019 flu vaccine:given tdap vaccinee: given 09/07 rhogam: na LARC form signed: declined movement and labor precautions reviewed. Problem list reviewed and updated with the most current plan of care details and appropriate orders placed. Relevant counseling for the gestational age provided. Continue routine care and follow up unless otherwise noted in visit notes/problem list details Initial Weight: 120 lb Date EGA Weight BP Urine Prot Glucose FHR FuHt Pres Dilation Effaced St Visit Note 04/19/20 8w 5d 120 lb (+0 oz) 104/66 168 SM- CRL cons with lmp 1.6cm 05/21/20 13w 2d 124 lb 2 oz (+4 lb 2 oz) 106/58 Negative Negative 155 No Vb, LOF. Ok to take pepcid bid for reflux. Ordered [employer] [facility] anatomy US. 06/18/20 17w 2d 130 lb 8 oz (+10 lb 8 oz) 120/60 Negative Negative 151 MH-NO VB, LOF. Pepcid helpful. Anatomy US scheduled 07/16/20 21w 2d 136 lb (+16 lb) 106/58 145 21 SM- no vb lof good fm nl anatomy 08/13/20 25w 2d 142 lb (+22 lb) 106/64 Negative Negative 145 25 Sm- no vb lof good fm n roegular ctx 09/07/20 28w 6d 146 lb 4 oz (+26 lb 4 oz) 112/60 Negative Negative 140 29 SM- no vb lof good fm no regular ctx 09/21/20 30w 6d 147 lb (+27 lb) 100/78 Negative Negative 140 31 Sm- no vb lof good fm no regular ctx 10/05/20 32w 6d 148 lb (+28 lb) 120/64 Negative Negative 140 33 Cephalic Sm- no vb lof good fm no regular ctx 10/19/20 34w 6d 148 lb (+28 lb) 120/70 Negative Negative 130 34 Cephalic GP - no LOF, VB, DFM, ctx. 11/02/20 36w 6d 151 lb (+31 lb) 112/66 Negative Negative 130 36 Cephalic GP - no LOF, VB, DFM, ctx. GBS done today. Mom recently diagnosed with breast cancer recurrence 11/09/20 37w 6d 150 lb (+30 lb) 116/74 Negative Negative 135 34 Cephalic 0 SM- no vb lof good fm no regular ctx, low FH recommend US 11/16/20 38w 6d 150 lb (+30 lb) 130/82 Negative Negative 130 38 Cephalic SM- no vb lof good fm no regular ctx ACOG First Trimester First Trimester: Desire for , Alcohol, Tobacco Cessation, Illicit/Recreational Drug/Substance Use, Intimate Partner Violence, Barriers to care, Unstable Housing, Communication Barriers, Environmental/Work Hazards, Anticipated Course of Care, Toxoplasmosis Precations, Use of Any medications, Sexual activity, Exercise, Dental Care, Sauna/Hot tub use, Seat Belt use, Childbirth classes/Hospital facilities, , Travel, Indications for Ultrasound and Screening for Aneuploidy Second Trimester Second Trimester: Signs and Symptoms of Labor, Selecting a care provider, Reproductive Life Planning & Contreception, Care Planning, Tobacco Cessation, Depression/Anxiety and Intimate Partner Violence Third Trimester Third Trimester: Pain Management Plans, Labor support person(s), Immediate Larc, Movement Monitoring and Infant Feeding Yes ; Discussed Trial of Labor after Counseling and Discussed Circumcision preference Diagnostics Diagnostics Diagnostics: Glucose 1 Hr 50 gm 129 mg/dL (70-140) Hgb 11.7 g/dL (12.0-15.0) L Hct 35.3 % (37-47) L Chlamydia DNA (ANA ROSA) Negative (Negative) N.gonorrhoeae DNA (ANA ROSA) Negative (Negative) Details: HIV: Urine Culture: Sequential Screen: NIPT Screen: ROS Const Reports system reviewed and no additional complaints, except as documented Card Reports system reviewed and no additional complaints, except as documented Resp Reports system reviewed and no additional complaints, except as documented GI Reports system reviewed and no additional complaints, except as documented and Reports nausea Reports system reviewed and no additional complaints, except as documented Musc Reports system reviewed and no additional complaints, except as documented Exam Const General: cooperative, healthy appearing, comfortable and anxious HENMT Head: normal to inspection Nose: external nose normal Face and sinus: normal facial exam Neck Neck: normal visual inspection, full ROM and no lymphadenopathy Thyroid: thyroid normal Chest Chest palpation & inspection: normal inspection of the chest Resp Effort & Inspection: normal respiratory effort GI Inspection: normal to inspection Palpation: soft and other (gravid uterus) Other: infant breech and appropriate size for gestational age Other: Cervical Exam: Extrem General: pedal edema Results POC Urinalysis 2 Dip (Clinic) Office Urine Glucose Negative Last Edit by Concepción Clark on 11/16/20 14:32 Office Urine Protein Negative Last Edit by Concepción Clark on 11/16/20 14:32 Coding Level of Care Code OB Routine Diagnoses Uterine size-date discrepancy, third trimester O26.843 History of tetanus, diphtheria, and acellular pertussis booster vaccination (Tdap) Z92.29 Supervision of other normal Z34.80 History of Z98.891 Z3A.38 Weeks of gestation: 38 weeks Assessment and Plan Assessment and Plan (1) Uterine size-date discrepancy, third trimester: Status: Acute Comment: us ordered (2) History of tetanus, diphtheria, and acellular pertussis booster vaccination (Tdap): Status: Acute Comment: 09/07/20 (3) Supervision of other normal : Status: Acute Comment: PRR GREGORIO 11/24/20 ronen Padilla PC: Rogelio Spouse: Abner (4) History of : Status: Acute Comment: PPROM Breech- would like to discuss (5) : Status: Acute Qualifiers: Weeks of gestation: 38 weeks Qualified Code(s): Z3A.38 - 38 weeks gestation of Comment: declines carrier, ntd, and genetic screening; NL anatomy; NEG GBS Plan - Dr. Elva Mcrae MD: plan RLTCS After discussing the patient's diagnosis and treatment plan options, patient wishes to proceed with surgical management. I have discussed with the patient the risks, benefits, and alternatives of the procedure which include but are not limited to risks of anesthesia, bleeding, infection, possible damage to bowel, bladder, or surrounding vasculature which could lead to additional surgery to evaluate any complications. Patient agrees to procedure and wishes to proceed. ACOG/uptodate references given for additional information regarding procedure. UPDATE- I have seen the patient and performed any clinically relevant updates to the history and physical exam. Elva Mcrae MD
[2020-11-19] MEDS: Lactated Ringers 1,000 ML 150 ML IV (07:20)
[2020-11-19] MEDS: Acetaminophen 500 MG Tablet 1000 MG PO ×3 (07:47→19:36)
[2020-11-19] MEDS: Sodium Citrate/Citric Acid 30 ML UDC PO (07:49)
[2020-11-19] MEDS: Cefazolin 2 GM in 0.9% Normal Saline 100 ML IV (08:53)
--- NOTE | 2020-11-19 08:54 | OP.PCM_ITS ---
Maternal Data Information GREGORIO Calculator Estimated Delivery Date Method Current WG Current Estimate 11/24/20 LMP (Certain) 39w 2d Other Estimates 11/28/20 Ultrasound #1 38w 5d Final GREGORIO Source: LMP Details Operative Information Date of Procedure: 11/19/20 Pre-Operative Diagnosis: Previous , breech Post-Operative Diagnosis: same Indications for : Repeat Elective Classification: Scheduled Procedure Type: low transverse Type of Anesthesia: Spinal Special Medications: none Antibiotic Given: Ancef 2 grams IV x1 Drain: Allen to straight drain Estimated Blood Loss: 400 Fluids Replaced: crystalloid Findings Description of Procedure: Spinal anesthesia was placed without difficulty. Allen catheter was placed. The patient was placed in the dorsal supine position with leftward tilt. Patient was prepped and draped in the normal sterile fashion. Pfannenstiel skin incision was made with the scalpel and carried through to the underlying layer of fascia with the scalpel. Fascia was nicked in the midline and the incision extended laterally. The rectus bellies were dissected off superiorly and inferiorly with out complication both sharply and bluntly. The peritoneum was entered digitally. The incision was stretched and a low transverse uterine incision was made with the scalpel. The infant's buttox was delivered atraumatically followed by the body, legs, and then the anterior and posterior shoulders and flexed head was delivered without complication. The cord was clamped and cut and the was handed off to awaiting nurse. The placenta was delivered spontaneously immediately following and was noted to be intact and have a three-vessel cord. The uterus was exteriorized cleared of all clots and debris, and the incision was closed in a double layer closure using #1 Monocryl. The ovaries and fallopian tubes were noted to be within normal limits. The uterus was returned to the maternal abdomen and gutters were cleared of all clots and debris. The peritoneum was closed with 3-0 Monocryl in a running fashion. Gloves were changed prior to fascial closure. Fascia was closed with 0 PDS in a running fashion. Subcutaneous tissue was copiously irrigated and the skin was closed with 3-0 Mo nocryl in a subcuticular fashion. Mepilex dressing was applied without complication. Patient was taken to recovery in stable condition. It was discussed with the patient that based on the clinical information obtained during this encounter, combined with her history, at this time I would recommend cesareans or vaginal deliveries for future deliveries if further pregnancies are desired. Amniotic Membrane Rupture Type: Artificial Amniotic Fluid Description: Clear Placenta Disposition: [facility] Cord Vessel Description: 3 Vessels Cord Entanglement: None A Gender: Male Delayed Cord Clamping: Yes Complications Risks of Surgery Discussed w/Patient: Bleeding, Infection, Need for Future C- Sections and Injury to surrounding structure(s) including bowel and bladder Vaginal Delivery Complication Complications: None Admit VTE Documentation VTE Present on Admission: No VTE Mechan Device Prophylaxis: SCD's Procedures Urinary/Genital [id number]: [id number] Delivery [facility]
[2020-11-19] MEDS: Oxytocin 30 units/NS 500 ml 30 UNITS/500 ML IV.SOLN 167 UNITS IV (10:20)
[2020-11-19] MEDS: Ketorolac 30 MG/ML Syringe IV ×2 (10:59→17:37)
--- NOTE | 2020-11-19 13:04 | PCM.DC ---
Discharge Instructions Diet Discharge Diet: No restrictions Activity Discharge Activity: Return to Normal Activity, May Not Drive (while taking narcotic pain medications.) and May Shower May shower in (days): 0 May resume sexual activity in: 4-6 weeks Weight Bearing Status: Full weight bearing Lifting Restrictions: 20 pounds Dressing / Incision Call your doctor if your incision/area has: Continuous Slow Oozing, Sudden Increased Bleeding, Increased Pain/ Swelling, Increased Redness and Foul Smelling Discharge Call your doctor if you observe: Fever of 101 or Higher and Using more than 1 pad per hour (for 2 hours) Suture Line Care: Avoid Pulling/Pushing and Avoid Pinching/Bending Cleanse incision/area with: Soap & Water and Keep Dressing Clean & Dry Follow Up Care Please Follow Up With: Elva Mcrae MD When: Call [phone] to make an appointment with your doctor in 6 weeks. If you had elevated blood pressure or 4th degree laceration, you will need to be seen in 2 weeks. Test Results: Test results from this visit will be discussed in further detail at your follow-up appointment, if applicable. Discharge Plan Admission Admit Date/Time: 11/19/20 05:30 Primary Reason for Your Visit: delivery Attending Provider: Elva Mcrae Primary Care Provider: Abilio Dai Discharge Orders/Prescriptions Prescriptions: New naproxen 250 MG tablet 250 - 500 mg PO Q8H PRN PRN (Reason: MILD PAIN) Qty: 30 RF: 1 oxycodone-acetaminophen [Percocet] 5-325 mg tablet 1 tab PO Q6H PRN (Reason: pain) 7 Days Qty: 20 RF: 0 Continued vitamin #56-iron 35 mg and 5 mg-folic acid 1 mg-dha capsule 35 mg iron-5 mg iron-1 mg capsule 1 cap PO DAILY RF: 0 Zyrtec 10 mg capsule 10 mg PO DAILY PRN (Reason: Allergic Symptoms) RF: 0 Referrals / Follow Up: Abilio Dai MD [Primary Care Provider] - Disposition Disposition (needs filled in before D/C Order can be placed): Home, Self Care
[2020-11-19] MEDS: Lactated Ringers 1,000 ML 100 ML IV (14:04)
[2020-11-19] MEDS: Nalbuphine 10 MG/ML Ampul 5 MG IV ×2 (14:25→18:38)
--- NOTE | 2020-11-19 16:42 | NURSING ---
Pt up walking around in room. Returns to bed and states she feels a little nauseous and light headed. Pt sitting on edge of bed and BP taken. VS withing normal limits. Pt states nausea subsided but still feels a little light headed. apple juice given.
[2020-11-19] MEDS: 0.9% Saline Lock 10 ML Syringe IV (17:38)
[2020-11-20] MEDS: Ketorolac 30 MG/ML Syringe IV ×2 (00:03→06:18)
[2020-11-20] MEDS: 0.9% Saline Lock 10 ML Syringe IV ×2 (00:04→06:18)
[2020-11-20 00:15] VITALS: BP 115/63; PULSE 92; RESP 16; TEMP 36.7; O2SAT 98
[2020-11-20] MEDS: Acetaminophen 500 MG Tablet 1000 MG PO ×4 (02:35→20:20)
[2020-11-20] MEDS: DiphenhydrAMINE 25 MG Capsule PO ×2 (03:25→09:34)
[2020-11-20 04:00] VITALS: BP 115/64; PULSE 88; RESP 16; TEMP 36.7; O2SAT 99
[2020-11-20 05:40] LABS: Hematocrit 32.4 % (37-47); Hemoglobin 10.7 g/dL (12.0-15.0); Mean Corpuscular Hgb 30.2 pg (27.0-32.0); Mean Corpuscular Volume 91.5 fL (81-99); Mean Platelet Vol. 9.4 fl (6.2-12.0); Platelet Count 161 K/mm3 (150-450); RBC Distribution Width SD 43.2 fl (35.1-43.9); Red Blood Count 3.54 M/mm3 (4.2-5.4); White Blood Count 11.3 K/mm3 (4.4-11.0)
--- NOTE | 2020-11-20 07:50 | PCM.PN.OB ---
Subjective Subjective Patient doing well without complaints. Tolerating PO. Ambulating and voiding without difficulty. Feeding well. Denies chest pain, shortness of breath, calf pain/swelling, fevers, chills, lightheadedness. Objective Data Objective Data Vital Signs: Vital Signs Temp Pulse Resp BP Pulse Ox 98.0 F 88 16 115/64 99 11/20/20 04:00 11/20/20 04:00 11/20/20 04:00 11/20/20 04:00 11/20/20 04:00 Oxygen Delivery Method Room Air Weight: 152 lb 3.2 oz Body Mass Index (BMI) 27.8 Intake & Output: Intake and Output for Last 24 Hours 11/18/20 11/19/20 11/20/20 23:59 23:59 23:59 Intake Total 3133.33 / 3133.33 Output Total 1850 / 1850 750 / 750 Balance 1283.33 / 1283.33 -750 / -750 Lab / Micro Data Result Diagrams: 11/20/20 05:32 Labs: Laboratory Results - last 24 hr 11/20/20 05:32: WBC 11.3 H, RBC 3.54 L, Hgb 10.7 L, Hct 32.4 L, MCV 91.5, MCH 30.2, MCHC 33.0, RDW Std Deviation 43.2, RDW Coeff of Hansel 13.0, Plt Count 161, MPV 9.4 Micro: Microbiology 11/19/20 06:35 Nasal Secretion SARS-CoV-2 Antigen (Rapid) - Final Physical Exam Const alert and oriented x3 HEENT normocephalic Eyes PERRL Neck full ROM Resp normal respiratory effort GI soft to palpation GI Narrative: FF below U. Dressing dry and intact Palpation: tender other (appropriately) Assessment & Plan (1) delivery delivered: COMMENT: RLTCS breech Randy boy SM PLAN: s/p LTCS PPD # 1 1. routine post care 2. breast feeding- support given 3. rh positive 4. rubella immune
[2020-11-20 07:51] VITALS: BP 105/61; PULSE 69; RESP 16; TEMP 36.6
[2020-11-20] MEDS: Naproxen 500 MG Tablet PO ×2 (12:28→20:20)
[2020-11-20 14:05] VITALS: BP 108/64; PULSE 77; RESP 16; TEMP 36.7
[2020-11-20 20:25] VITALS: BP 120/82; PULSE 70; RESP 16; TEMP 36.7; O2SAT 98
[2020-11-21] MEDS: Acetaminophen 500 MG Tablet 1000 MG PO ×2 (02:48→08:32)
[2020-11-21 02:50] VITALS: BP 110/66; PULSE 66; RESP 16; TEMP 36.7; O2SAT 96
[2020-11-21] MEDS: Naproxen 500 MG Tablet PO (04:22)
--- NOTE | 2020-11-21 07:35 | NURSING ---
report given to Kayleen Hill RN who is assuming care of pt at this time
--- NOTE | 2020-11-21 07:59 | PCM.PN.OB ---
Subjective Subjective Patient doing well without complaints. Tolerating PO. Ambulating and voiding without difficulty. Feeding well. Denies chest pain, shortness of breath, calf pain/swelling, fevers, chills, lightheadedness. Objective Data Objective Data Vital Signs: Vital Signs Temp Pulse Resp BP Pulse Ox 98.0 F 66 16 110/66 96 11/21/20 02:50 11/21/20 02:50 11/21/20 02:50 11/21/20 02:50 11/21/20 02:50 Oxygen Delivery Method Room Air Weight: 152 lb 3.2 oz Body Mass Index (BMI) 27.8 Intake & Output: Intake and Output for Last 24 Hours 11/19/20 11/20/20 11/21/20 23:59 23:59 23:59 Intake Total 3133.33 / 3133.33 Output Total 1850 / 1850 750 / 750 Balance 1283.33 / 1283.33 -750 / -750 Lab / Micro Data Result Diagrams: 11/20/20 05:32 Micro: Microbiology 11/19/20 06:35 Nasal Secretion SARS-CoV-2 Antigen (Rapid) - Final Physical Exam Const alert and oriented x3 HEENT normocephalic Eyes PERRL Neck full ROM Resp normal respiratory effort GI soft to palpation GI Narrative: FF below U. Dressing dry and intact Palpation: tender other (appropriately) Assessment & Plan (1) delivery delivered: COMMENT: RLTCS breech Randy boy PLAN: s/p LTCS PPD # 2 1. routine post care 2. breast feeding- support given 3. rh positive 4. rubella immune 5. home today
[2020-11-21 08:02] VITALS: BP 113/70; PULSE 70; RESP 16; TEMP 36.2; O2SAT 97
== END 2020-11-21 10:35 | disposition home or self-care (01) | DRG 788 ==
PROVIDERS: Admitting Provider Obstetrics & Gynecology; PCP Internal Medicine; Visit Provider Obstetrics & Gynecology
PROC: 10D00Z1 Extraction of Products of Conception, Low, Open Approach (ICD-10-PCS; CPT 59514; principal; 2020-11-19 07:15)
DX: O32.1XX0 Maternal care for breech presentation, not applicable or unspecified (principal); Z3A.39 39 weeks gestation of pregnancy; Z37.0 Single live birth
CPT/HCPCS: 85025; 85027; 86850; 86900; 86901; 87426; 99218; 99251; J7120; A4216; G0378; G0463

== ENCOUNTER 2020-11-22 09:05 | Emergency (ER) | payer OTHER, SELFPAY ==
[2020-11-22 09:06] VITALS: BP 134/79; PULSE 87; RESP 16; TEMP 36.7; O2SAT 100; BMI 26.6
--- NOTE | 2020-11-22 09:20 | EKG12_ITS ---
Test Reason : SOB Blood Pressure : / mmHG Vent. Rate : 064 BPM Atrial Rate : 064 BPM P-R Int : 104 ms QRS Dur : 078 ms QT Int : 370 ms P-R-T Axes : 052 032 046 degrees QTc Int : 381 ms Sinus rhythm with short IN Low voltage QRS Borderline ECG Confirmed by GUILLERMO MCCABE, CHARLES ([id number]), magazine editor SHELIA MOREAU ([id number]) on 11/27/2020 8:16:14 AM Referred By: MEE/LARA Confirmed By:DAVIAN LI MD
--- NOTE | 2020-11-22 09:21 | EDS_ITS ---
HPI History of Present Illness Chief Complaint: Shortness of Breath Informant: patient Narrative Narrative: Patient presents after discussing with her OB office for evaluation. Status post elective 3 days ago discharged yesterday followed by Dr. Mcrae. She reports she noted mild chest heaviness and dyspnea with exertion since her procedure. Denies cough. Denies fever. Yesterday noted a rash above her dressing, denied any pleuritic symptoms. Denies drainage, she has not removed the dressing. She reports she did change her soap and has used it a few times prior to the surgery and did not have a reaction to it. No leg swelling today. Denies headache or dizziness vomiting or diarrhea. Also states right-sided epistaxis while on the phone. She does not take any anticoagulants. No history of blood pressure issues or problems during . Currently on Tylenol and NSAIDs for pain. She is breast-feeding. PE Risk Factors: Positive for Recent surgery Prior similar symptoms: No PFSH PFSH Medical History (Updated 11/22/20 @ 13:[address] Richar Farias DO) IBS (irritable bowel syndrome) Home Medications vitamin #56-iron 35 mg and 5 mg-folic acid 1 mg-dha capsule 1 cap PO DAILY 02/19/18 [History Last Taken 09/02/18 08:00 1 tab] cetirizine 10 mg capsule 10 mg PO DAILY PRN 07/16/20 [History Last Taken Unknown] naproxen 250 - 500 mg PO Q8H PRN PRN #30 tab 11/19/20 [Rx Last Taken Unknown] oxycodone-acetaminophen [Percocet] 1 tab PO Q6H PRN 7 Days #20 tab 11/19/20 [Rx Last Taken Unknown] Allergy/AdvReac Type Severity Reaction Status Date / Time Penicillins [PCN] AdvReac Itching Verified 11/22/20 09:08 Family History Mother Breast cancer Grandmother Cancer multiple myeloma Grandfather Diabetes Surgical History (Updated 11/22/20 @ 09:44 by Chani Urena) History of History of wisdom tooth extraction Hx of LASIK Social History adopted: No household members: family housing: house number of children: 1 current occupational status: employed Smoking Status: Never smoker alcohol intake: current details: social- not while substance use type: does not use caffeine: Yes frequency: daily seatbelt use: always do you feel safe at home: Yes additional social history: [employer]- [employer] 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 ROS ED Constitutional Constitutional ED: Denies chills, fever(s) or sweats Eyes Eyes: Denies change in vision ENT ENT ED: Denies dysphagia or sore throat Cardiovascular Cardiovascular: Reports chest pain; Denies leg edema, palpitations or racing heartbeat Respiratory/Chest Respiratory/Chest: Reports dyspnea; Denies cough or dyspnea on exertion Gastrointestinal Gastrointestinal: Denies abdominal pain, diarrhea, nausea or vomiting Genitourinary Genitourinary ED: Denies dysuria, hematuria or urinary frequency Musculoskeletal Musculoskeletal: Denies back pain, extremity pain or neck pain Integumentary Denies rash or wounds Neurologic Neurologic: Denies headache(s), paresthesias or weakness EXAM Physical Exam Const Vital Signs: 11/22/20 09:06 11/22/20 09:43 11/22/20 10:39 Temperature 98.1 F Temperature Source Temporal Pulse Rate 87 65 Respiratory Rate 16 18 Respiratory Effort Short of Breath Blood Pressure 134/79 H 124/72 H Blood Pressure Mean 97 89 Pulse Ox 100 98 Oxygen Delivery Method Room Air Room Air Room Air Positive well nourished and well developed General Appearance ED: well developed and NAD HEENT Reports moist mucous membranes HEENT Narrative: Right nasal epistaxis, clots removed, small abrasion noted right anterior septum. Bleeding controlled with pressure. normocephalic and atraumatic Eyes PERRL, EOMs intact bilaterally and conjunctivae normal Eyes Narrative: Right nasal epistaxis controlled with pressure. General Eye ED: Yes normal appearance of both eyes Neck no lymphadenopathy and supple General: Negative for tenderness Chest Wall Chest: Negative for tenderness Resp normal respiratory effort and normal air movement Effort and Inspection: symmetric chest movement; Negative for respiratory distress Cardio regular rate, regular rhythm and no murmurs Peripheral Pulses: pulses 2+ throughout GI normal to inspection, nondistended, normoactive bowel sounds and non-tender GI Narrative: Dressing removed, wound clean, dry, intact there is small areas of ecchymosis above the mid upper wound. There is no active drainage. Scattered papular rash lower abdomen to the upper abdomen, no urticaria, no drainage. Nontender. Palpation: Negative for guarding or rebound tenderness present Back/Spine no CVA tenderness and no thoracic nor lumbar tenderness Extremity normal to inspection General Extremety ED: Negative for edema or tenderness General Extremity: Negative for edema Neuro oriented x3 and no sensory deficits noted Sensorium / Orientation: awake and alert Skin no rashes or lesions noted and no wounds MDM MDM MDM Narrative Medical decision making narrative: Patient right anterior epistaxis. Junito- Synephrine with cotton swab placed with pressure and monitored. EKG is sinus rhythm. Patient's blood pressure borderline however not above 140/90 for preeclampsia concerns. However will check labs and urine. Reports pressure with symptoms of shortness of breath. Will do a cardiac work-up with a D-dimer for further evaluation. 1030: Laboratory studies negative troponin mildly elevated uric acid and LDH. Liver enzymes normal. Renal function normal. Troponin negative. She did have elevated D-dimer at 1.07. She will be sent for CTA of the chest for further evaluation. Bleeding controlled. Cotton removed with no active bleeding. 1300: CT chest negative for PE. Blood pressure trending down with no intervention. Patient reassured. Urine noted hematuria however no proteins. No infection. I discussed with covering OB Dr. Newell, patient will be followed up as an outpatient. Patient will monitor blood pressure at home with return precautions. Patient will change her soap back to her previous 1 and monitoring for this nonspecific rash. She states she will use Tylenol not naproxen due to the epistaxis. All questions answered. Lab Data Attestation: I reviewed the patient's lab results. Labs: Laboratory Results - last 24 hr 11/22/20 11/22/20 11/22/20 09:42 09:42 09:42 WBC 8.9 RBC 3.92 L Hgb 11.8 L Hct 36.2 L MCV 92.3 MCH 30.1 MCHC 32.6 RDW Std Deviation 44.9 H RDW Coeff of Hansel 13.2 Plt Count 204 MPV 9.8 Immature Gran % (Auto) 0.500 Neut % (Auto) 71.7 H Lymph % (Auto) 17.7 L Thayer % (Auto) 6.8 Eos % (Auto) 3.0 Baso % (Auto) 0.3 Absolute Neuts (auto) 6.4 Absolute Lymphs (auto) 1.57 Nucleated RBC % 0 D-Dimer Quant (PE/DVT) 1.07 H* Sodium 142 Potassium 3.5 Chloride 109 H Carbon Dioxide 26.0 Anion Gap 7 BUN 11 Creatinine 0.81 Estim Creat Clear Calc 81.78 Est GFR (MDRD) Af Amer 108 Est GFR (MDRD) Non-Af 89 BUN/Creatinine Ratio 13.5 Glucose 81 Uric Acid 6.1 H Calcium 8.6 Total Bilirubin 0.80 Direct Bilirubin 0.17 AST 50 H ALT 40 Alkaline Phosphatase 91 Lactate Dehydrogenase 256 H Troponin I High Sens 5 Total Protein 6.6 Albumin 2.8 L Globulin 3.8 Urine Color Urine Clarity Urine pH Ur Specific [place] Urine Protein Urine Glucose (UA) Urine Ketones Urine Occult Blood Urine Nitrite Urine Bilirubin Urine Urobilinogen Ur Leukocyte Esterase Urine RBC Urine WBC Ur Squamous Epith Cells Urine Bacteria Urine Mucus U Random Total Protein Urine Creatinine Protein/Creatinin Ratio 11/22/20 11/22/20 11/22/20 10:23 10:23 11:54 WBC RBC Hgb Hct MCV MCH MCHC RDW Std Deviation RDW Coeff of Hans[place] Plt Count MPV Immature Gran % (Auto) Neut % (Auto) Lymph % (Auto) Thayer % (Auto) Eos % (Auto) Baso % (Auto) Absolute Neuts (auto) Absolute Lymphs (auto) Nucleated RBC % D-Dimer Quant (PE/DVT) Sodium Potassium Chloride Carbon Dioxide Anion Gap BUN Creatinine Estim Creat Clear Calc Est GFR (MDRD) Af Amer Est GFR (MDRD) Non-Af BUN/Creatinine Ratio Glucose Uric Acid Calcium Total Bilirubin Direct Bilirubin AST ALT Alkaline Phosphatase Lactate Dehydrogenase Troponin I High Sens 6 Total Protein Albumin Globulin Urine Color Yellow Urine Clarity Clear Urine pH 7.0 Ur Specific [place] 1.010 Urine Protein Negative Urine Glucose (UA) Normal Urine Ketones Negative Urine Occult Blood 50 H Urine Nitrite Negative Urine Bilirubin Negative Urine Urobilinogen Normal Ur Leukocyte Esterase Negative Urine RBC 0 SEEN Urine WBC 0 SEEN Ur Squamous Epith Cells 0-5 SEEN Urine Bacteria 0 SEEN Urine Mucus 0 SEEN U Random Total Protein < 6.0 Urine Creatinine 13.10 Protein/Creatinin Ratio TNP Radiography Diagnostic Testing: Radiology Impression Chest CTA 11/22/20 10:20 IMPRESSION: Normal CTA chest examination, without a demonstrated pulmonary embolism or arterial dissection. Electronically Signed: Ciro Sanchez MD at 11:19 EDT Tel , Service support , EKG Initial EKG: Attestation: I personally reviewed and interpreted this EKG as follows: Comments: Sinus rate of 64, no ST or T wave changes. Discharge Plan Triage Chief Complaint: Shortness of Breath ED Provider: Richar Farias Dx/Rx/DC Orders Clinical Impression: Chest pain, Acute dyspnea, Acute anterior epistaxis Instructions: ED Chest Pain, Noncardiac, ED Dyspnea, ED Epistaxis (Adult) Prescriptions: No Action vitamin #56-iron 35 mg and 5 mg-folic acid 1 mg-dha capsule 35 mg iron-5 mg iron-1 mg capsule 1 cap PO DAILY RF: 0 Zyrtec 10 mg capsule 10 mg PO DAILY PRN (Reason: Allergic Symptoms) RF: 0 naproxen 250 MG tablet 250 - 500 mg PO Q8H PRN PRN (Reason: MILD PAIN) Qty: 30 RF: 1 oxycodone-acetaminophen [Percocet] 5-325 mg tablet 1 tab PO Q6H PRN (Reason: pain) 7 Days Qty: 20 RF: 0 Primary Care Provider: Abilio Dai Referrals: Abilio Dai MD [Primary Care Provider] - Elva Mcrae MD [STAFF PHYSICIAN] - 3-5 Days Disposition Disposition: Home, Self Care
--- NOTE | 2020-11-22 09:23 | NURSING ---
NO OLD EKGS
--- NOTE | 2020-11-22 09:35 | NURSING ---
Saw mother at 0935 for engorgement of breasts. Single breast pump kit was taken to mother with hand pump portion also shown to the mother. Mother has new pump coming from insurance [employer] tomorrow or the next day. She has been feeding baby every 2-3 hours and then using haakaa at home for engorgement relief. Mother set up with pumping and instructions given on how to use pump and how long breast milk can be out. Offered milk to come to milk frig in OB if needed. Mother to pump for 15-20 min and warm compress and massage encouraged and done. Mother getting relief with pumping . May use cool compress after pumping as needed.
[2020-11-22 09:51] LABS: Absolute Lymphocyte Count 1.57 X10^3/uL (0.83-4.51); Absolute Neutrophil Count 6.4 X10^3/uL (2.0-7.7); Basophil# 0.03 X10^3/uL; Basophil% 0.3 % (0-1); Eosinophil# 0.27 X10^3/uL; Hematocrit 36.2 % (37-47); Hemoglobin 11.8 g/dL (12.0-15.0); Lymphocyte # 1.57 X10^3/ul (0.83-4.51); Lymphocyte % 17.7 % (19-41); Mean Corp Hgb Conc 32.6 g/dL (32-36); Mean Corpuscular Hgb 30.1 pg (27.0-32.0); Mean Corpuscular Volume 92.3 fL (81-99); Mean Platelet Vol. 9.8 fl (6.2-12.0); Monocyte% 6.8 % (0-10); NRBC Flagged by Analyzer 0 % (0-5); Neutrophil # 6.35 X10^3/uL (2.7-7.7); Neutrophil % 71.7 % (47-70); Platelet Count 204 K/mm3 (150-450); RBC Distribution Width CV 13.2 % (11.6-14.6); RBC Distribution Width SD 44.9 fl (35.1-43.9); Red Blood Count 3.92 M/mm3 (4.2-5.4); White Blood Count 8.9 K/mm3 (4.4-11.0)
[2020-11-22 10:10] LABS: AST(SGOT) 50 U/L (15-37); Alanine Aminotransfer ALT/SGPT 40 U/L (13-56); Albumin, Serum 2.8 g/dL (3.2-5.0); Alkaline Phosphatase 91 U/L (45-117); Anion Gap 7 (5-15); BUN 11 mg/dL (7-18); BUN/Creat Ratio 13.5 RATIO (10-20); Bilirubin, Direct 0.17 mg/dL (0.00-0.30); Calcium,Total 8.6 mg/dL (8.5-10.1); Chloride 109 mmol/L (98-107); Creatinine, Serum 0.81 mg/dL (0.55-1.02); EST Glomerular Filtration Rate 89 mL/min (>60); Est Glom Filt Rate - Afr Amer 108 mL/min (>60); Estimated Creatinine Clearance 81.78 ml/min; Globulin 3.8 g/dL (2.2-4.2); Glucose 81 mg/dL (74-106); LDH 256 U/L (84-246); Potassium 3.5 mmol/L (3.5-5.1); Protein, Total 6.6 g/dL (6.4-8.2); Sodium Level 142 mmol/L (136-145); Troponin-I HS 5 pg/mL (3.0-54.0); Uric Acid 6.1 mg/dL (2.6-6.0)
[2020-11-22 10:12] LABS: D-Dimer Quantitative (DVT/PE) 1.07 FEU/ug/m (0.27-0.49)
--- NOTE | 2020-11-22 10:20 | CT_ITS ---
STUDY: CTA CHEST REASON FOR EXAM: Female, 30 years old. dyspnea, elevated dimer RADIATION DOSAGE (If Supplied By Facility): CTDIvol = ( 15.10 ) mGy, DLP = ( 277.47 ) mGycm TECHNIQUE: The examination was performed with the intravenous administration of IV 100mL [id number]-370. Post-processing of the angiographic images was performed, with multiplanar reformation and 3D reconstruction. Individualized dose optimization techniques were used for this CT. COMPARISON: None. FINDINGS: Normal enhancement of the main pulmonary artery and right and left pulmonary arteries. Normal enhancement of the bilateral peripheral pulmonary arteries. There is no demonstrated pulmonary embolism. Normal thoracic aorta and visualized great vessels. There is no demonstrated aortic dissection. Normal heart and pericardium. Normal mediastinum. Normal hilar regions. Normal visualized trachea and bronchi. The lungs are well expanded. Normal pulmonary parenchyma. Normal pleura. Normal chest wall structures. Normal osseous structures. Normal visualized upper abdomen. CT/CTA Chest W/WO Contrast IMPRESSION: Normal CTA chest examination, without a demonstrated pulmonary embolism or arterial dissection. Electronically Signed: Ciro Sanchez MD at 11:19 EDT Tel , Service support ,
[2020-11-22 10:28] LABS: Bacteria 0 SEEN /hpf (None Seen); Mucous, Urine 0 SEEN /hpf (<or=2+); Red Blood Cells-Urine 0 SEEN /hpf (0-5); White Blood Cells 0 SEEN /hpf (0-5)
[2020-11-22 10:35] LABS: Color, Urine Yellow (Yellow); Glucose, Dipstick Normal (Normal); Ketone-Dipstick Negative (Negative); Leukocyte Esterase-Dipstick Negative /ul (Negative); Nitrite-Dipstick Negative (Negative); Occult Blood-Urine 50 /ul (Negative); Protein-Dipstick Negative (Negative); Urine Bilirubin Dipstick Negative (Negative); Urine Clarity Clear (Clear); Urine Urobilinogen Normal (Normal)
[2020-11-22 10:39] VITALS: BP 124/72; PULSE 65; RESP 18; O2SAT 98
[2020-11-22 10:41] LABS: Squamous Epithelial Cells - UA 0-5 SEEN /hpf (5-10)
[2020-11-22] MEDS: Oxymetazoline 0.05% 1 SPRAY SPRAY.BTL NASAL (10:43)
[2020-11-22 10:57] LABS: Protein, Urine (Random) < 6.0 mg/dL (<11.9)
[2020-11-22] MEDS: Acetaminophen 500 MG Tablet 1000 MG PO (12:14)
[2020-11-22 12:23] LABS: Troponin-I HS 6 pg/mL (3.0-54.0)
[2020-11-22 13:30] VITALS: BP 129/78; PULSE 85; RESP 16; O2SAT 99
== END 2020-11-22 13:32 | disposition home or self-care (01) ==
PROVIDERS: Emergency Provider Emergency Medicine; PCP Internal Medicine
DX: O90.89 Other complications of the puerperium, not elsewhere classified (principal); R07.9 Chest pain, unspecified; R06.00 Dyspnea, unspecified; R04.0 Epistaxis
CPT/HCPCS: 71275; 80048; 80076; 81001; 82570; 83615; 84156; 84484; 84550; 85025; 85379; 93005; 99284; Q9967; A4216

== ENCOUNTER → 2022-04-22 | Outpatient (CLI) | payer OTHER, SELFPAY ==
[2022-04-24 22:06] LABS: Chlamydia By Nucleic Acid AMP Negative (Negative)
[2022-04-24 22:35] LABS: Gonococcus By Nucleic Acid AMP Negative (Negative)
== END | disposition home or self-care (01) ==
LOC: LABSPEC 16:00
PROVIDERS: PCP Internal Medicine; Visit Provider Obstetrics & Gynecology
DX: Z34.90 Encounter for supervision of normal pregnancy, unspecified, unspecified trimester (principal)
CPT/HCPCS: 87086; 87491; 87591

== ENCOUNTER → 2022-04-29 | Outpatient (CLI) | payer OTHER, SELFPAY ==
[2022-04-29 12:24] LABS: Absolute Lymphocyte Count 1.78 X10^3/uL (0.83-4.51); Absolute Neutrophil Count 5.5 X10^3/uL (2.0-7.7); Basophil# 0.03 X10^3/uL; Basophil% 0.4 % (0-1); Eosinophil# 0.06 X10^3/uL; Eosinophils% 0.7 % (0-5); Hematocrit 38.6 % (37-47); Hemoglobin 12.8 g/dL (12.0-15.0); Lymphocyte # 1.78 X10^3/ul (0.83-4.51); Lymphocyte % 21.9 % (19-41); Mean Corp Hgb Conc 33.2 g/dL (32-36); Mean Corpuscular Hgb 28.8 pg (27.0-32.0); Mean Corpuscular Volume 86.9 fL (81-99); Mean Platelet Vol. 9.9 fl (6.2-12.0); Monocyte# 0.69 X10^3/uL; Monocyte% 8.5 % (0-10); NRBC Flagged by Analyzer 0 % (0-5); Neutrophil # 5.53 X10^3/uL (2.7-7.7); Neutrophil % 68.1 % (47-70); Platelet Count 293 K/mm3 (150-450); RBC Distribution Width CV 12.6 % (11.6-14.6); Red Blood Count 4.44 M/mm3 (4.2-5.4); White Blood Count 8.1 K/mm3 (4.4-11.0)
[2022-04-29 13:22] LABS: HIV - WCH Non-Reactive (Nonreactive); Hepatitis B Surface Antigen Non-Reactive (Nonreactive); Hepatitis C Antibody Non-Reactive (Nonreactive); Rubella IgG Reactive (Nonreactive); Syphilis Antibodies Non-reactive
== END | disposition home or self-care (01) ==
LOC: LAB 11:20
PROVIDERS: PCP Internal Medicine; Referring Provider Obstetrics & Gynecology; Visit Provider Obstetrics & Gynecology
DX: Z34.90 Encounter for supervision of normal pregnancy, unspecified, unspecified trimester (principal)
CPT/HCPCS: 36415; 85025; 86703; 86762; 86780; 86803; 86850; 86900; 86901; 87340

== ENCOUNTER → 2022-07-02 | Outpatient (CLI) | payer OTHER, SELFPAY ==
--- NOTE | 2022-07-02 12:58 | US_ITS ---
STUDY: SECOND AND THIRD TRIMESTER OBSTETRICAL ULTRASOUND REASON FOR EXAM: Female, 31 years old routine survey LMP: Unknown. TECHNIQUE: Transabdominal and Transvaginal TECHNICAL QUALITY: Adequate. PRIOR ULTRASOUND: None. FINDINGS: There is a single intrauterine fetus. The fetus is in a cephalic presentation. There is demonstrated cardiac activity with a heart rate of 148 bpm. There is a subjectively normal amniotic fluid volume. The largest amniotic fluid pocket measures 0.9 x 2.3 cm. The placenta is fundal in location. There are Grade 0 placental changes. The cervix measures 4.9 cm in length. The bilateral adnexal regions are normal. BIOMETRY: BPD: 4.54 cm: 19 weeks, 5 days HC: 16.53 cm: 19 weeks, 2 days AC: 14.63 cm: 19 weeks, 6 days FL: 2.86 cm: 18 weeks, 6 days age by current US: 19 weeks, 2 days. GREGORIO by current US: 11/24/2022. Estimated weight: 295 grams, +/- 44 grams, 73 %. ANATOMY: Gender: Female Cranium: Normal lateral ventricles. Normal choroid plexus. Normal cerebellum. Normal cisterna magna. Normal face, nose and lips. Chest: Normal 4-chamber heart. Abdomen/Pelvis: Normal diaphragm. Normal stomach. Normal abdominal wall. Normal cord insertion. Normal 3 vessel cord. Normal kidneys. Normal bladder. Spine: Normal cervical spine. Normal thoracic spine. Normal lumbar spine. Normal sacrum. Extremities: Normal bilateral upper extremities. Normal bilateral lower extremities. IMPRESSION: Single live intrauterine at 19 weeks, 2 days by current ultrasound with GREGORIO of 11/24/2022. Heart rate at 148 bpm, no suspicious sonographic findings. Electronically Signed: Jaren Fowler MD at 14:30 EDT , EXAM: US OB Transvaginal-limited HISTORY: anatomy -- tvag also done for cx measurement COMPARISON: None FINDINGS: Limited transvaginal ultrasound also performed to evaluate for cervical length. Cervix measures 4.9 cm. US/OB Anatomy Scan IMPRESSION: Cervical length of 4.9 cm measured transvaginally Electronically Signed: Jaren Fowler MD at 14:31 EDT ,
== END | disposition home or self-care (01) ==
LOC: OPUS 12:58
PROVIDERS: PCP Internal Medicine; Referring Provider Nurse Practitioner Women's Health; Visit Provider Nurse Practitioner Women's Health
DX: Z34.90 Encounter for supervision of normal pregnancy, unspecified, unspecified trimester (principal)
CPT/HCPCS: 76805; 76817

== ENCOUNTER → 2022-09-09 | Outpatient (CLI) | payer OTHER, SELFPAY ==
[2022-09-09 13:05] LABS: Absolute Lymphocyte Count 2.03 X10^3/uL (0.83-4.51); Absolute Neutrophil Count 9.9 X10^3/uL (2.0-7.7); Basophil# 0.05 X10^3/uL; Basophil% 0.4 % (0-1); Eosinophil# 0.17 X10^3/uL; Eosinophils% 1.3 % (0-5); Hemoglobin 11.9 g/dL (12.0-15.0); Lymphocyte # 2.03 X10^3/ul (0.83-4.51); Lymphocyte % 15.3 % (19-41); Mean Corp Hgb Conc 33.1 g/dL (32-36); Mean Corpuscular Hgb 29.8 pg (27.0-32.0); Mean Platelet Vol. 9.2 fl (6.2-12.0); Monocyte# 0.96 X10^3/uL; Monocyte% 7.2 % (0-10); NRBC Flagged by Analyzer 0 % (0-5); Neutrophil # 9.94 X10^3/uL (2.7-7.7); Neutrophil % 74.7 % (47-70); Platelet Count 211 K/mm3 (150-450); RBC Distribution Width CV 13.3 % (11.6-14.6); RBC Distribution Width SD 44.1 fl (35.1-43.9); White Blood Count 13.3 K/mm3 (4.4-11.0)
[2022-09-09 13:56] LABS: Glucose Challenge Gest 1H 50g 154 mg/dL (70-140)
[2022-09-09 14:35] LABS: HIV - WCH Non-Reactive (Nonreactive); Syphilis Antibodies Non-reactive
== END | disposition home or self-care (01) ==
LOC: LAB 12:47
PROVIDERS: PCP Internal Medicine; Referring Provider Nurse Practitioner Women's Health; Visit Provider Nurse Practitioner Women's Health
DX: Z34.90 Encounter for supervision of normal pregnancy, unspecified, unspecified trimester (principal); Z3A.00 Weeks of gestation of pregnancy not specified
CPT/HCPCS: 36415; 82950; 85025; 86703; 86780

== ENCOUNTER → 2022-09-22 | Outpatient (CLI) | payer OTHER, SELFPAY ==
[2022-09-22 08:50] LABS: Glucose GTT-Gestational 1 Hr 142 mg/dL (<190)
[2022-09-22 08:54] LABS: Glucose GTT-Gestation. Fasting 84 mg/dL (<105)
[2022-09-22 10:32] LABS: Glucose GTT-Gestational 2 Hr 105 mg/dL (<165)
[2022-09-22 11:17] LABS: Glucose GTT-Gestational 3 Hr 54 L (<145)
== END | disposition home or self-care (01) ==
PROVIDERS: PCP Internal Medicine; Referring Provider Nurse Practitioner Women's Health; Visit Provider Nurse Practitioner Women's Health
DX: Z13.1 Encounter for screening for diabetes mellitus (principal)
CPT/HCPCS: 36415; 82951; 82952

== ENCOUNTER → 2022-11-04 | Outpatient (CLI) | payer OTHER, SELFPAY ==
--- NOTE | 2022-11-04 14:34 | US_ITS ---
STUDY: Ultrasound OB limited 1 or more fetus REASON FOR EXAM: Female, 32 years old uterine size discrepancy LMP: February 19, 2022 correlating with 36 weeks 6 days estimated delivery date November 26, 2022 PRIOR ULTRASOUND: July 02, 2022. TECHNIQUE: Transabdominal OB ultrasound with grayscale, color flow, and M-mode Doppler. 3-D facial rendering obtained. FINDINGS: There is a single intrauterine fetus. The fetus is in a cephalic presentation. There is demonstrated cardiac activity with a heart rate of 152 bpm. There is a normal amniotic fluid volume. The largest amniotic fluid pocket measures 5.8 cm with scattered internal reflectors The amniotic fluid index (ELVIE) is 17.8 cm. The placenta is fundal There are Grade 1 placental changes. The cervix is obscured by cranial shadow. BIOMETRY: BPD: 9.1 cm: 36 weeks, 6 days HC: 32.3 cm: 36 weeks, 3 days AC: 32.0 cm: 35 weeks, 6 days FL: 7.1 cm: 36 weeks, 4 days age by current US: 36 weeks, 4 days. GREGORIO by current US: November 28, 2022. Estimated weight: 2920 grams, +/- 438 grams, 42 percentile. US/OB Limited With Biometrics IMPRESSION: Single live intrauterine with normal heart rate. Cervix is obscured by cranial shadow. Normal ELVIE. 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 weight as above. Electronically Signed: Slim Jenkins MD at 9:13 EDT ,
== END | disposition home or self-care (01) ==
LOC: OPUS 14:33
PROVIDERS: PCP Internal Medicine; Referring Provider Obstetrics & Gynecology; Visit Provider Obstetrics & Gynecology
DX: O26.849 Uterine size-date discrepancy, unspecified trimester (principal); Z3A.00 Weeks of gestation of pregnancy not specified
CPT/HCPCS: 76816

== ENCOUNTER → 2022-11-06 | Outpatient (CLI) | payer OTHER, SELFPAY ==
[2022-11-10 21:07] LABS: Chlamydia By Nucleic Acid AMP Negative (Negative); Gonococcus By Nucleic Acid AMP Negative (Negative)
== END | disposition home or self-care (01) ==
LOC: LABSPEC 15:56
PROVIDERS: PCP Internal Medicine; Referring Provider Obstetrics & Gynecology; Visit Provider Obstetrics & Gynecology
DX: O34.219 Maternal care for unspecified type scar from previous cesarean delivery (principal); Z3A.00 Weeks of gestation of pregnancy not specified
CPT/HCPCS: 87081; 87491; 87591

== ENCOUNTER 2022-12-02 19:25 | Inpatient (IN) | payer BC, SELFPAY ==
[2022-12-02] VITALS (22 sets, daily range): BP systolic 114–130; BP diastolic 59–82; PULSE 73–100; TEMP 36.7–37.6; O2SAT 83–100; BMI 29.0
[2022-12-02 18:18] LABS: ROM Internal Control Test YES-OK TO RESULT pt. (Internal QC); ROM Patient Test Negative (Negative); Record Kit Lot#, ROM+ K1409
--- NOTE | 2022-12-02 19:12 | PCM.HP.OB ---
HPI - General General Date of Admission: 12/02/22 HPI Narrative ASHLEY PORTILLO, is a 32 y/o @40 weeks 6 days who presents to L&D in active labor. she has a history of 2 prior sections and desires a trial of labor after section. We have discussed the risks, benefits, and alternatives in the office on multiple occasions. She has signed a TOLAC consent form in the office. Maternal Data Information GREGORIO Calculator Estimated Delivery Date Method Current WG Current Estimate 11/26/22 LMP (Certain) 40w 6d Other Estimates 11/22/22 Ultrasound #1 41w 3d [facility] Medical History Acute anterior epistaxis Acute dyspnea delivery delivered Chest pain IBS (irritable bowel syndrome) Home Medications PNV no.151-iron 27 mg-folic 800 mcg-omega3 260 vu-ygg-dln-fish capsule cap PO 04/15/22 [History Last Taken Unknown] Allergy/AdvReac Type Severity Reaction Status Date / Time Penicillins [PCN] AdvReac Itching Verified 12/02/22 17:39 Family History Mother Breast cancer, Onset Age: 41 Grandmother Cancer multiple myeloma Grandfather Diabetes Surgical History History of History of wisdom tooth extraction Hx of SAM Social History adopted: No household members: family housing: house number of children: 2 current occupational status: employed 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 [employer] pets and animals: No history of recent travel: No sexually active: Yes Smoking Status: Never smoker alcohol intake: current details: social- not while substance use type: does not use well-balanced diet: daily or most days caffeine: Yes Type: coffee Number of servings: 1 eating out: rarely or never during the past year weight has: remained stable what type of physical activity do you participate in: bicycling and weight training frequency: daily duration: 15-30 minutes/day lilia/jain: Pentecostal seatbelt use: always do you feel safe at home: Yes additional social history: [employer]- [employer]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 Date Name GA/Weeks Outcome Route Bth Weight Gen Labor Lgth Anesthesia Del Locatn Provider FOB 09/05/18 Rogelio 36 live - full term 5lbs 14oz Male spinal [facility] Marcanthony 11/19/20 Randy live - full term 7lbs 10oz Male spinal [facility] SM Delivery Date: 09/05/18 Last Updated by: Vanesa Ngo Breech PPROM Visit Details Expected Delivery Route/Plan plan rpt on 11/21/22 if not a patient counseled regarding risks/benefits of trial of labor versus repeat . ACOG/uptodate education given to patient. [ % likelihood of success per calculator TOLAC consent form signed: 73% Plans Covid status: unvaccinated Flu vaccine: declined Tdap vaccine: declined Rhogam: na LARC form signed: declined movement and labor precautions reviewed. Problem list reviewed and updated with the most current plan of care details and appropriate orders placed. Relevant counseling for the gestational age provided. Continue routine care and follow up unless otherwise noted in visit notes/problem list details OB Flowsheet Initial Weight: Not Recorded Date <del>?</del> EGA Weight BP Urine Prot <del>?</del> Glucose FHR FuHt Pres Dilation <del>?</del> Effaced St Visit Note 04/22/22 <del>?</del> 8w 6d 121 lb 118/72 <del>?</del> 159 <del>?</del> JV- single live IUP measuring 9 weeks 3 days and consistent with LMP. declines NIPT. 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 05/20/22 <del>?</del> 12w 6d 122 lb 6 oz 98/66 Negative <del>?</del> Negative 160 <del>?</del> MH-No Vb. Nausea improving. Feeling anxious, tearful. First time for her. Enc counseling, try magnesium, call with worsening sx 06/16/22 <del>?</del> 16w 5d 132 lb 2 oz 107/69 Negative <del>?</del> Negative 163 <del>?</del> MH-No Vb. Anxiety has resolved. Taking magnesium. US is 07/0207/15/22 <del>?</del> 20w 6d 137 lb 4 oz 102/64 Negative <del>?</del> Negative 155 <del>?</del> JV- fi JV- pt found out she is having a girl. she is requesting to do the fresh test which is a glucose challenge test other than the standard one we have here. I told her it would not be accepted by peds and likely not worth it as it is a powder and too many variables are present. 08/13/22 <del>?</del> 25w 0d 144 lb 6 oz 100/62 Negative <del>?</del> Negative 152 <del>?</del> MH-No VB, LOF. Good FM. Wants R C/S on 11/21/22. Request to search engine optimizer. 09/09/22 <del>?</del> 28w 6d 150 lb 6 oz 127/64 Negative <del>?</del> Negative 130 28 <del>?</del> SM- no vb lof good fm no regular ctx 07/14/23 <del>?</del> 32w 2d 157 lb 6 oz 110/64 Negative <del>?</del> Negative 135 33 <del>?</del> Sm- no vb lof good fmm no regular ctx 10/15/22 <del>?</del> 34w 0d 158 lb 3 oz 130/78 Negative <del>?</del> Negative 145 34 Cephalic <del>?</del> JV- no concerns today, no complaints. cephalic today. if starts labor may want a . plan for growth scan at 36 weeks if still vtx. 10/28/22 <del>?</del> 35w 6d 162 lb 6 oz 103/62 <del>?</del> 140 36 <del>?</del> SM- no vb lof good fm no regular ctx 11/06/22 <del>?</del> 37w 1d 162 lb 110/75 <del>?</del> 140 37 Cephalic 0.5 <del>?</del> SM- no vb lof good fm no regular ctx gbs done 11/11/22 <del>?</del> 37w 6d 164 lb 6 oz 106/67 Negative <del>?</del> Negative 140 38 Cephalic 0.5 <del>?</del> Sm- no vb lof good fm no regular ctx 11/17/22 <del>?</del> 38w 5d 163 lb 4 oz 116/70 Negative <del>?</del> Negative 140 39 Cephalic 1.5 <del>?</del> 70 -2 SM- no vb lof good fm no regular ctx patient requesting to move cs 11/25/22 <del>?</del> 39w 6d 166 lb 6 oz 122/69 Negative <del>?</del> Negative 156 38 Cephalic 1.5 <del>?</del> 70 -2 JV- pt is scheduled for a repeat on 11/27 but wants to wait for longer (wants to wait until the ) will discuss with SM. 12/01/22 <del>?</del> 40w 5d 165 lb 4 oz 117/77 Negative <del>?</del> Negative 140 40 Cephalic 1.5 <del>?</del> 70 -2 SM- no vb lof good fm no regular ctx ROS Constitutional Constitutional: Denies change in weight, fatigue, fever(s), headache(s), poor appetite or weakness Eyes Eyes: Denies blurry vision, change in vision, seeing flashes or spots in vision ENT HEENT: Denies dizziness, headache(s), loss taste/smell or sore throat Cardiovascular Cardiovascular: Denies chest pain, dizziness, dyspnea, irregular heart rhythm, leg edema, palpitations, rapid heart rate or vomiting Respiratory/Chest Respiratory/Chest: Denies chest tightness, cough, dyspnea or breast pain Gastrointestinal Gastrointestinal: Denies abdominal pain, anorexia, constipation, cramping, diarrhea, hemorrhoids, vomiting or weight changes Genitourinary Genitourinary: Denies dysuria, flank pain, genital lesions, genital pain, urinary frequency or urinary urgency Musculoskeletal Musculoskeletal: Denies back pain, difficulty walking, joint pain, limited range of motion, muscle cramps or numbness Integumentary Integumentary: Denies lesions or unusual bruising Neurologic Neurologic: Denies abnormal movements, abnormal speech, dizziness, numbness, seizure-like activity or syncope Psychiatric Psychiatric: Denies anxiety, behavioral changes, change in appetite, change in libido, cognitive impairment, confusion, depression, difficulty concentrating, hallucinations or suicidal thoughts Endocrine Endocrinology: Denies excessive sweating, polydipsia or polyuria Hematologic/Lymphatic Hematologic/Lymphatic: Denies easy bleeding, easy bruising or lymphadenopathy Allergic/Immunologic Allergic/Immunologic: Denies itchy eyes, lip swelling, seasonal rhinorrhea, rhinitis, throat swelling, tongue swelling, eczemia, wheezing or asthma Vital Signs Vital Signs Vital Signs: 12/02/22 17:45 12/02/22 17:45 Temperature 99.7 F H Temperature Source Tympanic Weight Weight: 164 lb Body Mass Index (BMI) 29.0 Physical Exam Const alert, oriented x3, no apparent distress and healthy appearing General Appearance: cooperative; Negative for anxious HEENT normocephalic Face and Sinus: normal facial exam Eyes EOMs intact bilaterally and no scleral icterus General Eye: normal appearance of both eyes Neck full ROM and supple Lymph Lymphatic: no lymphadenopathy noted Chest Chest: abnormal inspection of the chest Resp normal respiratory effort Effort and Inspection: able to speak in complete sentences Cardio regular rate GI soft to palpation and non-tender Inspection: gravid Palpation: soft; Negative for tender external exam normal Narrative: cx 4- 5/90/+1 membranes intact. On glove there is moderate blood . Amniotic Fluid: ROM+plus Back/Spine no CVA tenderness Extremity normal to inspection, full ROM and no clubbing, cyanosis or edema General Extremity: Negative for calf tenderness or edema Skin Lesions: no lesions Rashes: no rashes Psych mental status grossly normal Labs Labs Labs: Blood Type O POSITIVE Antibody Screen NEGATIVE Hct 39.6 % (37-47) Hgb 13.1 g/dL (12.0-15.0) Obstetrics US Syphilis Total Ab Non-reactive VZV IgG Antibody 1.53 index (Immune >1.09-) Rubella IgG Antibody Reactive (Nonreactive) Hep Bs Antigen Non-Reactive (Nonreactive) Chlamydia DNA (ANA ROSA) Negative (Negative) Neisseria gonorrhoeae DNA (ANA ROSA) Negative (Negative) HIV 1&2 Antibody Non-Reactive (Nonreactive) Glucose 1 Hr 50 gm 154 mg/dL (70-140) H Rhogam given: No Assessment & Plan (1) Abnormal glucose level: COMMENT: 3 HR GTT nl (2) Anxiety: COMMENT: counseling enc. Magnesium supp; resolved. (3) Maternal anesthesia complication: COMMENT: BP dropped, anesthesia caused chest to be heavy and was in fingers (4) History of delivery, currently : COMMENT: breech x 2; wants R C/S if no spont labor, RLTCS scheduled for 11/27 @ 12 with SM (5) Seasonal allergies: COMMENT: spring, sometimes fall (6) : QUALIFIERS: Weeks of gestation: 41 weeks Qualified Code(s): O48.0 - Post-term ; Z3A.41 - 41 weeks gestation of COMMENT: discussed genetic & carrier testing, nl anatomy (7) Supervision of high risk , antepartum: COMMENT: [id number], GREGORIO 11/26/22, girl Kim Mercado, Randy Abner PLAN: Plan Patient presents IAL, plan expectant management for , pitocin/AROM PRN if needed. Pain management: plans epidural. GBS negative . Management of any complications: 2 prior sections patient counseled regarding risks/benefits of trial of labor versus repeat . ACOG/uptodate education given to patient. Risks of uterine rupture 1/100 discussed with one prior section. with 2 the risk goes up only slightly based on ACOG findings. She understands that an emergency repeat section comes with higher risks of bleeding, need for transfusion, among other maternal and complications, than a schedule repeat section ( hysterectomy being one) and infant/ in the rare occurrence of a uterine rupture. She agrees to an emergent section as deemed necessary. 73% % likelihood of success per calculator TOLAC consent form signed: yes I have reviewed the [facility] and made any clinically relevant updates.
[2022-12-02 19:30] LABS: Absolute Lymphocyte Count 2.43 X10^3/uL (0.83-4.51); Absolute Neutrophil Count 11.7 X10^3/uL (2.0-7.7); Basophil# 0.07 X10^3/uL; Basophil% 0.5 % (0-1); Eosinophils% 0.6 % (0-5); Hematocrit 39.6 % (37-47); Hemoglobin 13.1 g/dL (12.0-15.0); Lymphocyte # 2.43 X10^3/ul (0.83-4.51); Lymphocyte % 15.8 % (19-41); Mean Corp Hgb Conc 33.1 g/dL (32-36); Mean Corpuscular Hgb 29.6 pg (27.0-32.0); Mean Corpuscular Volume 89.6 fL (81-99); Mean Platelet Vol. 9.8 fl (6.2-12.0); Monocyte# 1.05 X10^3/uL; Monocyte% 6.8 % (0-10); NRBC Flagged by Analyzer 0 % (0-5); Neutrophil # 11.66 X10^3/uL (2.7-7.7); Neutrophil % 75.7 % (47-70); Platelet Count 267 K/mm3 (150-450); RBC Distribution Width CV 13.1 % (11.6-14.6); RBC Distribution Width SD 42.7 fl (35.1-43.9); Red Blood Count 4.42 M/mm3 (4.2-5.4); White Blood Count 15.4 K/mm3 (4.4-11.0)
[2022-12-02] MEDS: fentaNYL-bupivacaine (epidural) 100 ML BAG EPIDURAL (20:13)
[2022-12-02] MEDS: Lactated Ringers 1,000 ML 200 ML IV ×2 (20:33→23:27)
[2022-12-02] MEDS: LACTATED RINGERS 500 ML 999 ML IV (20:35)
[2022-12-02 20:40] LABS: Syphilis Antibodies Non-reactive
--- NOTE | 2022-12-02 20:46 | PCM.PN.BLA ---
Progress Note patient has epidural in place but still breathing through contractions and appears to be painful. current tracing: FHT: baseline 120, Moderate variability reactive no decelerations category I tracing [employer]: q 2-3 min Contractions cx 4-5/80/+1 (slightly thicker cervix since last exam) membranes ruptured and meconium stained fluid present. reviewed tracing abnormalities since last note: no change A/P: tolac desired - continue close monitoring. IUPC and IFM prn.
--- NOTE | 2022-12-02 23:51 | PCM.PN.BLA ---
Progress Note pt is more comfortable with the epidural now. However there has been moments of minimal and absent variability. Most recently at 2323 there was a prolonged deceleration from the baseline of 150 down to 120 and then slowly back up to the 150's over the course of 4 minutes. Following this deceleration the variability went from moderate to minimal and it appears that her vaginal bleeding has picked up. The patient consents to internal monitors. current tracing: FHT: minimal variability, category 2 FHT see above. Ventress: q 2- 3 min Contractions cx: 5/80/+1, moderate vaginal bleeding. 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 At this time I am recommending to proceed with a repeat section. patient has an allergy to pcn., ordering gent + clinda
[2022-12-02] MEDS: Sodium Citrate/Citric Acid 30 ML UDC PO (23:52)
[2022-12-02] MEDS: Acetaminophen 500 MG Tablet PO (23:52)
[2022-12-03] VITALS (17 sets, daily range): BP systolic 93–120; BP diastolic 44–70; PULSE 67–95; RESP 16; TEMP 36.4–37.2; O2SAT 96–99
[2022-12-03] MEDS: Clindamycin 900 MG/50 ML BAG 75 MG IV (00:15)
[2022-12-03] MEDS: Gentamicin IV 260 MG in Dextrose 5%-Water (50mL Bag) 50 ML 100 MG IVPB (00:24)
--- NOTE | 2022-12-03 00:52 | EX.PCM.OBRPT ---
Assessment & Plan (1) Abnormal glucose level: COMMENT: 3 HR GTT nl (2) Anxiety: COMMENT: counseling enc. Magnesium supp; resolved. (3) Maternal anesthesia complication: COMMENT: BP dropped, anesthesia caused chest to be heavy and was in fingers (4) History of delivery, currently : COMMENT: breech x 2; wants R C/S if no spont labor, RLTCS scheduled for 11/27 @ 12 with SM (5) Seasonal allergies: COMMENT: spring, sometimes fall (6) Supervision of high risk , antepartum: COMMENT: [id number], GREGORIO 11/26/22, girl Kim Mercado, Randy Abner (7) : QUALIFIERS: Weeks of gestation: 41 weeks Qualified Code(s): O48.0 - Post-term ; Z3A.41 - 41 weeks gestation of COMMENT: discussed genetic & carrier testing, nl anatomy (8) intolerance to labor, delivered, current hospitalization: Maternal Data Information GREGORIO Calculator Estimated Delivery Date Method Current WG Current Estimate 11/26/22 LMP (Certain) 41w 0d Other Estimates 11/22/22 Ultrasound #1 41w 4d Final GREGORIO: 11/26/22 Final GREGORIO Source: LMP Gestational age: 41 weeks 0d [place] Doctor Who Attended Delivery: Nikkie Woody Details Operative Information Date of Procedure: 12/03/22 Pre-Operative Diagnosis: 30 @ 41 weeks, attempted TOLAC, minimal variability, protracted labor, vaginal bleeding Post-Operative Diagnosis: 30 @ 41 weeks, attempted TOLAC, minimal variability, protracted labor, vaginal bleeding Classification: JOSE Procedure Type: low transverse mainframe applications developer #1: Josselyn Almazan Type of Anesthesia: Epidural Antibiotic Given: Clindamycin 600mg IV x1 and Gentamicin 1.5mg/kg IV x1 Estimated Blood Loss: 500cc Findings Description of Procedure: Epidural anesthesia was found to be adequate. Allen catheter was found to be in placed. The patient was placed in the dorsal supine position with leftward tilt. Patient was prepped and draped in the normal sterile fashion. Pfannenstiel skin incision was made with the scalpel and carried through to the underlying layer of fascia with the scalpel. Fascia was nicked in the midline and the incision extended laterally. The rectus bellies were dissected off superiorly and inferiorly with out complication both sharply and bluntly. The peritoneum was entered digitally. The incision was stretched gently. The bladder flap was dissected off and there was noted to be an approximate 5 cm uterine window under the bladder flap. This was poked with the side edge of the scissors and the uterus opened. The opening was stretched and The infant's head was delivered atraumatically followed by the anterior and posterior shoulders without complication the rest of the infant delivered. The cord was clamped and cut and the was handed off to awaiting nurse. The placenta was delivered spontaneously immediately following and was noted to be intact and have a three-vessel cord. The uterus was exteriorized cleared of all clots and debris, and the incision was closed in a double layer closure using #1 Vicryl and #1 Monocryl. The ovaries and fallopian tubes were noted to be within normal limits. The uterus was returned to the maternal abdomen and gutters were cleared of all clots and debris. The peritoneum was closed with 3-0 Monocryl in a running fashion. Fascia was closed with 0 PDS in a running fashion. Subcutaneous tissue was copiously irrigated and the skin was closed with 3-0 Monocryl in a subcuticular fashion. Mepilex dressing was applied without complication. Patient was taken to recovery in stable condition. It was discussed with the patient that based on the clinical information obtained during this encounter, combined with her history, at this time I would recommend repeat section no later than 39 weeks for future deliveries if further pregnancies are desired. Presentation: Positive for Vertex Amniotic Membrane Rupture Type: Artificial Amniotic Fluid Description: Moderate meconium Placental Delivery Description: Manual Removal Placenta Disposition: [facility] Cord Vessel Description: 3 Vessels Cord Entanglement: None Infant A Gender: Female (1 minute): 8 (5 minute): 9 Delayed Cord Clamping: Yes Complications Risks of Surgery Discussed w/Patient: Bleeding, Anesthesia Risks, Infection, Need for Future C-Sections and Injury to surrounding structure(s) including bowel and bladder Complications: none Multi Select Codes Urinary/Genital Urinary/Genital CPT Codes: 86645 Delivery [facility]
--- NOTE | 2022-12-03 01:00 | DCINST_ITS ---
Discharge Instructions Diet Discharge Diet: No restrictions Activity Discharge Activity: May Not Drive (for 2 weeks or while taking narcotic pain medications.), May Shower and May Take a Tub Bath (in 7 days.) May resume sexual activity in: 4-6 weeks Weight Bearing Status: Full weight bearing Lifting Restrictions: 20 pounds Dressing / Incision Call your doctor if your incision/area has: Continuous Slow Oozing, Sudden Increased Bleeding, Increased Pain/ Swelling, Increased Redness and Foul Smelling Discharge Call your doctor if you observe: Fever of 101 or Higher and Using more than 1 pad per hour Suture Line Care: Avoid Pulling/Pushing and Avoid Pinching/Bending Cleanse incision/area with: Soap & Water and Keep Dressing Clean & Dry Follow Up Care Please Follow Up With: Denise Casiano DO When: Call [phone] to make an appointment for an incision check in 1-2 weeks. Test Results: Test results from this visit will be discussed in further detail at your follow- up appointment, if applicable. Discharge Plan Admission Admit Date/Time: 12/02/22 19:25 Primary Reason for Your Visit: section Attending Provider: Denise Casiano Primary Care Provider: Abilio Dai Discharge Orders/Prescriptions Prescriptions: New naproxen 500 mg tablet 500 mg PO BID PRN (Reason: pain) Qty: 30 0RF Continued [id number] 27 mg iron-800 mcg-260 mg capsule PO Referrals / Follow Up: Abilio Dai MD [Primary Care Provider] - Disposition Disposition (needs filled in before D/C Order can be placed): Home, Self Care
[2022-12-03] MEDS: Oxytocin 15 Units/NS 250ml 15 UNITS/250 ML IV.SOLN 83 UNITS IV (01:30)
[2022-12-03] MEDS: Ketorolac 30 MG/ML Syringe IV ×4 (02:02→19:29)
[2022-12-03] MEDS: Lactated Ringers 1,000 ML 100 ML IV (04:33)
[2022-12-03] MEDS: Acetaminophen 500 MG Tablet 1000 MG PO ×3 (06:06→18:47)
[2022-12-03] MEDS: 0.9% Saline Lock 10 ML Syringe IV ×2 (13:36→19:30)
[2022-12-03] MEDS: Senna/Docusate Sodium 1 Tablet PO (15:00)
[2022-12-03] MEDS: DiphenhydrAMINE 12.5 MG/5 ML UDC 25 MG PO (16:33)
[2022-12-04] MEDS: Acetaminophen 500 MG Tablet 1000 MG PO ×4 (00:28→18:20)
[2022-12-04 00:30] VITALS: BP 107/56; PULSE 71; RESP 17; TEMP 36.6; O2SAT 97
[2022-12-04] MEDS: Naproxen 500 MG Tablet PO ×2 (01:25→10:04)
[2022-12-04 06:30] VITALS: BP 107/54; PULSE 64; RESP 16; TEMP 36.6; O2SAT 98
[2022-12-04 06:43] LABS: Hematocrit 31.2 % (37-47); Hemoglobin 10.1 g/dL (12.0-15.0); Mean Corp Hgb Conc 32.4 g/dL (32-36); Mean Corpuscular Volume 92.6 fL (81-99); Mean Platelet Vol. 9.6 fl (6.2-12.0); Platelet Count 171 K/mm3 (150-450); RBC Distribution Width CV 13.2 % (11.6-14.6); RBC Distribution Width SD 44.5 fl (35.1-43.9); Red Blood Count 3.37 M/mm3 (4.2-5.4); White Blood Count 11.1 K/mm3 (4.4-11.0)
--- NOTE | 2022-12-04 07:59 | PCM.PN.OB ---
Subjective Subjective Patient doing well without complaints. Tolerating PO. Ambulating and voiding without difficulty. Feeding well. Denies chest pain, shortness of breath, calf pain/swelling, fevers, chills, lightheadedness. Objective Data Objective Data Vital Signs: Vital Signs Temp Pulse Resp BP Pulse Ox O2 Del Method 97.8 F 64 16 107/54 L 98 Room Air 12/04/22 06:30 12/04/22 06:30 12/04/22 06:30 12/04/22 06:30 12/04/22 06:30 12/04/22 06:30 Oxygen Delivery Method Room Air Weight: 164 lb Body Mass Index (BMI) 29.0 Intake & Output: Intake and Output for Last 24 Hours 12/02/22 12/03/22 12/04/22 23:59 23:59 23:59 Intake Total 580 / 580 1444.83 / 1444.83 Output Total 2400 / 2400 Balance 580 / 580 -955.17 / -955.17 Lab / Micro Data 12/04/22 06:35 Labs: Laboratory Results - last 24 hr 12/04/22 06:35: WBC 11.1 H, RBC 3.37 L, Hgb 10.1 L, Hct 31.2 L, MCV 92.6, MCH 30.0, MCHC 32.4, RDW Std Deviation 44.5 H, RDW Coeff of Hansel 13.2, Plt Count 171, MPV 9.6 Physical Exam Const alert and oriented x3 HEENT normocephalic Eyes PERRL Neck full ROM Resp normal respiratory effort GI soft to palpation GI Narrative: FF below U. Dressing dry and intact Palpation: tender other (appropriately) Assessment & Plan (1) delivery delivered: COMMENT: ZAIRE Alvarez 12/03/22 PLAN: Plan s/p LTCS PPD # 1 1. routine post care 2. breast feeding- support given 3. rh positive 4. rubella immune
[2022-12-04 08:12] VITALS: BP 109/59; PULSE 64; RESP 16; TEMP 36.7; O2SAT 98
[2022-12-04] MEDS: Senna/Docusate Sodium 1 Tablet PO (10:04)
[2022-12-04 14:53] VITALS: BP 103/78; PULSE 77; RESP 17; TEMP 36.6; O2SAT 98
[2022-12-04] MEDS: DiphenhydrAMINE 25 MG Capsule 50 MG PO (18:19)
[2022-12-04] MEDS: Ibuprofen 600 MG Tablet PO (18:19)
--- NOTE | 2022-12-04 18:31 | NURSING ---
1750- Called into room, complaining of itching left eye and itching above lower abdominal incision. Scattered reddened rash noted above dressing. Requesting Krishyl and questioning if caused by Roman. Called Dr. Mcrae, orders given and carried out.
[2022-12-04 20:00] VITALS: BP 106/50; PULSE 66; RESP 17; TEMP 36.8; O2SAT 98
[2022-12-05] MEDS: Ibuprofen 600 MG Tablet PO ×2 (00:48→11:27)
[2022-12-05] MEDS: Acetaminophen 500 MG Tablet 1000 MG PO ×2 (00:49→06:29)
[2022-12-05] MEDS: DiphenhydrAMINE 25 MG Capsule 50 MG PO (00:59)
[2022-12-05 02:00] VITALS: BP 100/58; PULSE 65; RESP 18; TEMP 36.6; O2SAT 95
[2022-12-05] MEDS: Hydrocortisone 2.5% Crm 1 APPLIC TOPICAL (03:08)
--- NOTE | 2022-12-05 04:03 | NURSING ---
call to provider to update her on pt rash on her abdomen. rash appears to have grown. pt complaint of itchiness regardless of taking 50 mg PO Benadryl. provider gave telephone order to give Topical Hydrocortisone Cream PRN
[2022-12-05 08:00] VITALS: BP 114/72; PULSE 64; RESP 14; TEMP 36.8; O2SAT 99
--- NOTE | 2022-12-05 08:08 | PCM.PN.OB ---
Subjective Subjective Patient doing well without complaints. Tolerating PO. Ambulating and voiding without difficulty. feeding well. Denies chest pain, shortness of breath, calf pain/swelling, fevers, chills, lightheadedness. Objective Data Objective Data Vital Signs: Vital Signs Temp Pulse Resp BP Pulse Ox O2 Del Method 97.8 F 65 18 100/58 L 95 Room Air 12/05/22 02:00 12/05/22 02:00 12/05/22 02:00 12/05/22 02:00 12/05/22 02:00 12/05/22 02:00 Oxygen Delivery Method Room Air Weight: 164 lb Body Mass Index (BMI) 29.0 Intake & Output: Intake and Output for Last 24 Hours 12/03/22 12/04/22 12/05/22 23:59 23:59 23:59 Intake Total 1444.83 / 1444.83 Output Total 2400 / 2400 Balance -955.17 / -955.17 Lab / Micro Data 12/04/22 06:35 ROS Constitutional Constitutional: Reports systems reviewed and no addt'l complaints, except as documented Cardiovascular Cardiovascular: Reports systems reviewed and no addt'l complaints, except as documented Respiratory/Chest Respiratory/Chest: Reports systems reviewed and no addt'l complaints, except as documented Gastrointestinal Gastrointestinal: Reports systems reviewed and no addt'l complaints, except as documented Physical Exam Const alert, oriented x3 and no apparent distress HEENT Head and Scalp: atraumatic Resp normal respiratory effort GI soft to palpation and non-tender Inspection: incision intact, healing well and drainage (none) Bimanual Exam - Vag & Uterus: uterus non-tender Uterus Palpation: uterus fundus firm (below Umbilicus) Assessment & Plan (1) delivery delivered: COMMENT: ZAIRE Alvarez 12/03/22 PLAN: Plan s/p LTCS PPD # 2 1. routine post care 2. breast feeding- support given 3. rh positive 4. rubella immune
[2022-12-05] MEDS: Senna/Docusate Sodium 1 Tablet PO (11:27)
[2022-12-05 12:38] VITALS: BP 115/66; PULSE 76; RESP 14; TEMP 36.9; O2SAT 98
== END 2022-12-05 13:10 | disposition home or self-care (01) | DRG 788 ==
LOC: WPOUT 19:28 → WP 19:28
PROVIDERS: Advanced Practice Midwife; Admitting Provider Obstetrics & Gynecology; PCP Internal Medicine; Visit Provider Obstetrics & Gynecology
DX: O34.211 Maternal care for low transverse scar from previous cesarean delivery (principal); O48.0 Post-term pregnancy; O77.0 Labor and delivery complicated by meconium in amniotic fluid; Z3A.41 41 weeks gestation of pregnancy; Z37.0 Single live birth; O76 Abnormality in fetal heart rate and rhythm complicating labor and delivery; Z88.0 Allergy status to penicillin
CPT/HCPCS: 59025; 59050; 84112; 85025; 85027; 86780; 86850; 86900; 86901; 99221; 99252; J7120; A4216; G0378; G0463

== ENCOUNTER → 2023-01-14 | Outpatient (CLI) | payer BC, SELFPAY ==
[2023-01-20 09:08] LABS: HPV APTIMA, High Risk Negative (Negative)
== END | disposition home or self-care (01) ==
LOC: LABSPEC 14:47
PROVIDERS: PCP Internal Medicine; Referring Provider Obstetrics & Gynecology; Visit Provider Obstetrics & Gynecology
DX: Z12.4 Encounter for screening for malignant neoplasm of cervix (principal)
CPT/HCPCS: 87624; 88175; G0145

== ENCOUNTER → 2023-12-17 | Outpatient (CLI) | payer OTHER, SELFPAY ==
[2023-12-21 22:06] LABS: Chlamydia By Nucleic Acid AMP Negative (Negative); Gonococcus By Nucleic Acid AMP Negative (Negative)
== END | disposition home or self-care (01) ==
PROVIDERS: PCP Internal Medicine; Referring Provider Obstetrics & Gynecology; Visit Provider Obstetrics & Gynecology
DX: O09.90 Supervision of high risk pregnancy, unspecified, unspecified trimester (principal); Z3A.00 Weeks of gestation of pregnancy not specified
CPT/HCPCS: 87086; 87491; 87591

== ENCOUNTER → 2023-12-17 | Outpatient (CLI) | payer OTHER, SELFPAY ==
[2023-12-17 15:45] LABS: Absolute Lymphocyte Count 2.11 X10^3/uL (0.83-4.51); Absolute Neutrophil Count 6.7 X10^3/uL (2.0-7.7); Basophil# 0.03 X10^3/uL; Basophil% 0.3 % (0-1); Eosinophil# 0.08 X10^3/uL; Eosinophils% 0.8 % (0-5); Hematocrit 38.2 % (37-47); Hemoglobin 12.4 g/dL (12.0-15.0); Lymphocyte # 2.11 X10^3/ul (0.83-4.51); Lymphocyte % 21.9 % (19-41); Mean Corp Hgb Conc 32.5 g/dL (32-36); Mean Corpuscular Hgb 28.4 pg (27.0-32.0); Mean Corpuscular Volume 87.6 fL (81-99); Mean Platelet Vol. 9.6 fl (6.2-12.0); Monocyte# 0.71 X10^3/uL; Monocyte% 7.4 % (0-10); NRBC Flagged by Analyzer 0 % (0-5); Neutrophil # 6.68 X10^3/uL (2.7-7.7); Neutrophil % 69.3 % (47-70); Platelet Count 286 K/mm3 (150-450); RBC Distribution Width CV 12.4 % (11.6-14.6); RBC Distribution Width SD 39.8 fl (35.1-43.9); Red Blood Count 4.36 M/mm3 (4.2-5.4); White Blood Count 9.6 K/mm3 (4.4-11.0)
[2023-12-17 17:01] LABS: HIV - WCH Non-Reactive (Nonreactive); Hepatitis B Surface Antigen Non-Reactive (Nonreactive); Hepatitis C Antibody Non-Reactive (Nonreactive); Rubella IgG Reactive (Nonreactive); Syphilis Antibodies Non-reactive
== END | disposition home or self-care (01) ==
LOC: OLS.ABSOLU 15:10 → LAB 12-18 12:54
PROVIDERS: PCP Internal Medicine; Referring Provider Obstetrics & Gynecology; Visit Provider Obstetrics & Gynecology
DX: O09.90 Supervision of high risk pregnancy, unspecified, unspecified trimester (principal); Z3A.00 Weeks of gestation of pregnancy not specified
CPT/HCPCS: 36415; 85025; 86703; 86762; 86780; 86803; 86850; 86900; 86901; 87340

== ENCOUNTER → 2024-02-29 | Outpatient (CLI) | payer OTHER, SELFPAY ==
--- NOTE | 2024-02-29 08:01 | US_ITS ---
STUDY: SECOND AND THIRD TRIMESTER OBSTETRICAL ULTRASOUND REASON FOR EXAM: Female, 33 years old Anatomy Scan LMP: 10/11/2023 TECHNIQUE: Transabdominal TECHNICAL QUALITY: Adequate. PRIOR ULTRASOUND: None. FINDINGS: There is a single intrauterine fetus. The fetus is in a cephalic presentation. There is demonstrated cardiac activity with a heart rate of 153 bpm. There is a normal amniotic fluid volume. The largest amniotic fluid pocket measures 5.8 cm. The amniotic fluid index (ELVIE) is cm. The placenta is anterior in location and is not low lying. There are Grade 0 placental changes. The cervix measures 4.3 cm in length. The bilateral adnexal regions are normal. BIOMETRY: BPD: 4.7 cm: 20 weeks, 2 days HC: 18.4 cm: 20 weeks, 5 days AC: 16.1 cm: 21 weeks, 1 days FL: 3.1 cm: 19 weeks, 5 days CI: 72.34 FL/BPD: 66.24 FL/HC: 17.09 FL/AC: 19.53 HC/AC: 1.14 age by current US: 20 weeks, 3 days. GREGORIO by current US: 07/15/2024. Estimated weight: 361 grams, +/- 54 grams, 67 %. age by prior US: weeks, days. GREGORIO by prior US: . Age by LMP: 20 weeks, 1 days. GREGORIO by LMP: 07/17/2024. ANATOMY: Gender: Male Cranium: Normal lateral ventricles. Normal choroid plexus. Normal cerebellum. Normal cisterna magna. Normal face, nose and lips. Chest: Normal 4-chamber heart. Abdomen/Pelvis: Normal diaphragm. Normal stomach. Normal abdominal wall. Normal cord insertion. Nuchal umbilical cord. Normal kidneys. Normal bladder. Spine: Normal cervical spine. Normal thoracic spine. Normal lumbar spine. Normal sacrum. Extremities: Normal bilateral upper extremities. Normal bilateral lower extremities. US/OB Anatomy w/ Transvaginal IMPRESSION: Living intrauterine of 20 weeks 3 days as described above. Nuchal umbilical cord Electronically Signed: Ciro Sanchez MD at 10:44 EST , Refer to OB ultrasound. Electronically Signed: Ciro Sanchez MD at 10:44 EST ,
== END | disposition home or self-care (01) ==
PROVIDERS: PCP Internal Medicine; Referring Provider Obstetrics & Gynecology; Visit Provider Obstetrics & Gynecology
DX: Z34.90 Encounter for supervision of normal pregnancy, unspecified, unspecified trimester (principal)
CPT/HCPCS: 76805; 76817

== ENCOUNTER → 2024-04-25 | Outpatient (CLI) | payer OTHER, SELFPAY ==
[2024-04-25 17:01] LABS: Absolute Lymphocyte Count 2.07 X10^3/uL (0.83-4.51); Basophil# 0.05 X10^3/uL; Basophil% 0.4 % (0-1); Eosinophil# 0.16 X10^3/uL; Eosinophils% 1.2 % (0-5); Hematocrit 33.4 % (37-47); Hemoglobin 11.1 g/dL (12.0-15.0); Lymphocyte # 2.07 X10^3/ul (0.83-4.51); Lymphocyte % 15.6 % (19-41); Mean Corp Hgb Conc 33.2 g/dL (32-36); Mean Corpuscular Volume 90.3 fL (81-99); Mean Platelet Vol. 9.7 fl (6.2-12.0); Monocyte# 0.86 X10^3/uL; Monocyte% 6.5 % (0-10); NRBC Flagged by Analyzer 0 % (0-5); Neutrophil % 75.2 % (47-70); Platelet Count 230 K/mm3 (150-450); RBC Distribution Width CV 13.5 % (11.6-14.6); RBC Distribution Width SD 44.2 fl (35.1-43.9); White Blood Count 13.3 K/mm3 (4.4-11.0)
[2024-04-25 17:18] LABS: Glucose Challenge Gest 1H 50g 126 mg/dL (70-140)
[2024-04-25 17:55] LABS: HIV - WCH Non-Reactive (Nonreactive); Syphilis Antibodies Non-reactive
== END | disposition home or self-care (01) ==
LOC: BWCLAB 13:24
PROVIDERS: PCP Internal Medicine; Referring Provider Obstetrics & Gynecology; Visit Provider Obstetrics & Gynecology
DX: O09.90 Supervision of high risk pregnancy, unspecified, unspecified trimester (principal); Z13.1 Encounter for screening for diabetes mellitus; Z3A.00 Weeks of gestation of pregnancy not specified
CPT/HCPCS: 36415; 82950; 85025; 86703; 86780

== ENCOUNTER → 2024-06-10 | Outpatient (CLI) | payer OTHER, SELFPAY ==
--- NOTE | 2024-06-10 13:39 | US_ITS ---
PROCEDURE: OB LIMITED WITH BIOMETRICS 06/10/2024 REASON FOR EXAM: GROWTH TECHNIQUE: Transabdominal obstetric ultrasound performed for biometry FINDINGS Transabdominal imaging. Single live intrauterine with cardiac activity seen at 136 beats per minute. Presentation is cephalic. Cervical length is not visualized. The adnexa are not visualized. ELVIE 13.9 cm, maximum vertical pocket 6.7 cm. Anterior grade 2 placenta appears within limits. DIMENSIONS: Biparietal Diameter: 8.8 cm/35 weeks 5 days Head Circumference: 32.2 cm/36 weeks 2 days Abdominal Circumference: 32.8 cm/36 weeks 5 days Femur Length: 6.8 cm/34 weeks 5 days FL/AC 21%, FL/BPD 76%, FL/HC 21%, CI 79%, HC/AC 0.98 ESTIMATED WEIGHT: 2853 g +/-428 g ESTIMATED WEIGHT PERCENTILE (24+ weeks): 83% Estimated age by ultrasound 36 weeks 0 days, GREGORIO 07/08/2024 age by LMP 34 weeks 5 days, GREGORIO 07/17/2024 US/OB Limited With Biometrics IMPRESSION: Single live intrauterine by ultrasound 36 weeks and 0 days and biomet rics as above. age by LMP 34 weeks and 5 days. Reading Location: [id number]
== END | disposition home or self-care (01) ==
LOC: US 13:39
PROVIDERS: PCP Internal Medicine; Referring Provider Nurse Practitioner Women's Health; Visit Provider Nurse Practitioner Women's Health
DX: O26.843 Uterine size-date discrepancy, third trimester (principal); Z3A.34 34 weeks gestation of pregnancy
CPT/HCPCS: 76816

== ENCOUNTER → 2024-06-24 | Outpatient (CLI) | payer OTHER, SELFPAY | END | disposition home or self-care (01) | LOC: LABSPEC 16:16 | PROVIDERS: PCP Internal Medicine; Referring Provider Obstetrics & Gynecology; Visit Provider Obstetrics & Gynecology | DX: O09.93 Supervision of high risk pregnancy, unspecified, third trimester (principal); Z3A.00 Weeks of gestation of pregnancy not specified; Z11.3 Encounter for screening for infections with a predominantly sexual mode of transmission | CPT/HCPCS: 87081; 87491; 87591 ==

== ENCOUNTER 2024-06-27 10:05 | Inpatient (IN) | payer OTHER, SELFPAY ==
[2024-06-21] MEDS: 0.9% Saline Lock 10 ML Syringe IV (11:16)
[2024-06-27] VITALS (17 sets, daily range): BP systolic 94–124; BP diastolic 52–83; PULSE 70–91; RESP 13–21; TEMP 36.1–36.7; O2SAT 96–100; BMI 29.7
[2024-06-27] MEDS: Lactated Ringers 1,000 ML 999 ML IV (10:30)
[2024-06-27 11:02] LABS: Absolute Lymphocyte Count 1.99 X10^3/uL (0.83-4.51); Absolute Neutrophil Count 10.5 X10^3/uL (2.0-7.7); Basophil# 0.04 X10^3/uL; Basophil% 0.3 % (0-1); Eosinophil# 0.13 X10^3/uL; Eosinophils% 0.9 % (0-5); Hematocrit 35.9 % (37-47); Hemoglobin 12.3 g/dL (12.0-15.0); Lymphocyte # 1.99 X10^3/ul (0.83-4.51); Lymphocyte % 14.4 % (19-41); Mean Corp Hgb Conc 34.3 g/dL (32-36); Mean Corpuscular Hgb 29.9 pg (27.0-32.0); Mean Corpuscular Volume 87.1 fL (81-99); Mean Platelet Vol. 9.8 fl (6.2-12.0); Monocyte% 7.3 % (0-10); NRBC Flagged by Analyzer 0 % (0-5); Neutrophil # 10.52 X10^3/uL (2.7-7.7); Neutrophil % 76.4 % (47-70); Platelet Count 243 K/mm3 (150-450); RBC Distribution Width CV 13.5 % (11.6-14.6); RBC Distribution Width SD 42.4 fl (35.1-43.9); Red Blood Count 4.12 M/mm3 (4.2-5.4); White Blood Count 13.8 K/mm3 (4.4-11.0)
[2024-06-27] MEDS: Acetaminophen 500 MG Tablet 1000 MG PO ×3 (11:08→23:16)
[2024-06-27] MEDS: Lactated Ringers 1,000 ML 150 ML IV (11:36)
[2024-06-27 11:49] LABS: Syphilis Antibodies Nonreactive (Nonreactive)
[2024-06-27] MEDS: Sodium Citrate/Citric Acid 30 ML UDC PO (12:04)
[2024-06-27] MEDS: Clindamycin 900 MG/50 ML BAG 75 MG IV (12:31)
[2024-06-27] MEDS: Gentamicin IV 310 MG in Dextrose 5%-Water (50mL Bag) 50 ML 100 MG IVPB (12:35)
--- NOTE | 2024-06-27 13:27 | PCM.POST.ANE ---
Anesthesia: Postop Eval I Current Vital Signs Temperature: 97 F Pulse Rate: 72 Blood Pressure: 106/68 Respiratory Rate: 20 Pulse Ox: 100 Oxygen Delivery Method: Room Air Assessment Airway patent: Yes Spontaneous unlabored respirations: Yes Mental status: Awake and Calm nausea: No Vomiting: No Anesthesia Complication: No Fluid Hydration Crystalloid volume administer (ml): 1,200 Total IV fluid infused: 1,200 Progress Note Anesthesia document: Postop Eval 1 completed: Yes
--- NOTE | 2024-06-27 13:30 | POSTOPAN2_ITS ---
Anesthesia Postop Eval I Sum Postop Eval Completion status Anesthesia document: Postop Eval 1 completed: Yes Anesthesia Postop Eval I Summary Anesthesia Postop Eval I Summary: Anesthesia Postop Eval I: Assessment Summary Airway patent Yes 06/27/24 13:27 SUPERVISOR POWER REACTOR.[email or web address] Spontaneous unlabored Yes 06/27/24 13:27 SUPERVISOR POWER REACTOR.MDOT respirations Mental status Awake,Calm 06/27/24 13:27 SUPERVISOR POWER REACTOR.MDOT nausea No 06/27/24 13:27 SUPERVISOR POWER REACTOR.MDOT Vomiting No 06/27/24 13:27 SUPERVISOR POWER REACTOR.MDOT Anesthesia Postop Eval I: Fluid Summary Crystalloid volume administer 1,200 06/27/24 13:27 SUPERVISOR POWER REACTOR.MDOT (ml) Colloids volume administered ( ml) Blood Product volume administered (ml) Total IV fluid infused 1,200 06/27/24 13:27 SUPERVISOR POWER REACTOR.MDOT Anesthesia Postop Eval I: Summary Notes Anesthesia Complication No 06/27/24 13:27 SUPERVISOR POWER REACTOR.MDOT Anesthesia Complication Comment: Post-operative progress note Anesthesia: Postop Eval II Evaluation Mental status: Awake and Calm Pain Level: 0 nausea: No Vomiting: No Complications Anesthesia Complication: No
--- NOTE | 2024-06-27 13:30 | PCM.POSTANE2 ---
Anesthesia Postop Eval I Sum Postop Eval Completion status Anesthesia document: Postop Eval 1 completed: Yes Anesthesia Postop Eval I Summary Anesthesia Postop Eval I Summary: Anesthesia Postop Eval I: Assessment Summary Airway patent Yes 06/27/24 13:27 FOOD MIXER REPAIRER.[email or web address] Spontaneous unlabored Yes 06/27/24 13:27 FOOD MIXER REPAIRER.MDOT respirations Mental status Awake,Calm 06/27/24 13:27 FOOD MIXER REPAIRER.MDOT nausea No 06/27/24 13:27 FOOD MIXER REPAIRER.MDOT Vomiting No 06/27/24 13:27 FOOD MIXER REPAIRER.MDOT Anesthesia Postop Eval I: Fluid Summary Crystalloid volume administer 1,200 06/27/24 13:27 FOOD MIXER REPAIRER.MDOT (ml) Colloids volume administered ( ml) Blood Product volume administered (ml) Total IV fluid infused 1,200 06/27/24 13:27 FOOD MIXER REPAIRER.MDOT Anesthesia Postop Eval I: Summary Notes Anesthesia Complication No 06/27/24 13:27 FOOD MIXER REPAIRER.MDOT Anesthesia Complication Comment: Post-operative progress note Anesthesia: Postop Eval II Evaluation Mental status: Awake and Calm Pain Level: 0 nausea: No Vomiting: No Complications Anesthesia Complication: No
[2024-06-27] MEDS: Oxytocin 15 Units/NS 250ml 15 UNITS/250 ML IV.SOLN 83 UNITS IV (13:50)
[2024-06-27] MEDS: Ketorolac 30 MG/ML Syringe IV ×2 (14:05→20:05)
[2024-06-27] MEDS: Lactated Ringers 1,000 ML 100 ML IV (16:48)
[2024-06-27] MEDS: HYDROmorphone 0.5 MG/0.5 ML SYRINGE IV ×2 (18:09→20:05)
[2024-06-27] MEDS: 0.9% Saline Lock 10 ML Syringe IV ×2 (18:10→20:05)
[2024-06-28] MEDS: 0.9% Saline Lock 10 ML Syringe IV ×4 (00:04→08:54)
[2024-06-28] MEDS: HYDROmorphone 0.5 MG/0.5 ML SYRINGE IV ×3 (00:04→11:17)
[2024-06-28] MEDS: Ketorolac 30 MG/ML Syringe IV ×2 (02:50→08:54)
[2024-06-28] MEDS: Acetaminophen 500 MG Tablet 1000 MG PO ×4 (05:13→23:43)
[2024-06-28 05:15] VITALS: BP 104/57; PULSE 78; RESP 16; TEMP 36.7; O2SAT 97
[2024-06-28 05:32] LABS: Hematocrit 34.5 % (37-47); Hemoglobin 11.6 g/dL (12.0-15.0); Mean Corp Hgb Conc 33.6 g/dL (32-36); Mean Corpuscular Hgb 29.7 pg (27.0-32.0); Mean Corpuscular Volume 88.5 fL (81-99); Mean Platelet Vol. 9.1 fl (6.2-12.0); Platelet Count 186 K/mm3 (150-450); RBC Distribution Width CV 13.9 % (11.6-14.6); RBC Distribution Width SD 44.6 fl (35.1-43.9); White Blood Count 16.5 K/mm3 (4.4-11.0)
[2024-06-28 08:00] VITALS: BP 102/48; PULSE 69; RESP 18; TEMP 36.3; O2SAT 97
--- NOTE | 2024-06-28 08:05 | HP.PCM_ITS ---
History and Physical Date of Admission: 06/27/24 [facility] [address], [address] [place] [address] OFFICE VISIT Date of Service: 06/24/24 MR#: [id number] Acct: [id number] Name: ASHLEY PORTILLO Rep #: [id number] : 1990 Provider: Dr. Elva Mcrae MD Age/Sex: 33/F Location: [facility] Status: Signed Intake Vital Signs 04/07/2514:41 06/10/2513:59 06/24/2513:04 06/24/2513:05 Height 5 ft 3 in 5 ft 3 in 5 ft 3 in 5 ft 3 in Weight: 171 lb 2 oz BMI 30.3 BP 110/71 Intake Visit Reasons: 36 wk ob Supervisor [place] Required: No Is patient in pain?: No Feel stressed/tense/nervous/anxious/difficulty sleeping: not at all Allergies Penicillins (PCN) Adverse Reaction (Verified 06/24/24 14:04) Itching Medications ?Medication ?Instructions ?Recorded ?Confirmed ?Type PNV no.151-iron 27 mg-folic 800 cap PO 04/15/22 06/24/24 History mcg-omega3 260 gz-xoo-mvt-fish capsule Last Menstrual Period: 10/11/23 Zika: Zika virus screening: Negative : No [facility] Medical History Vaginal after Depression Acute anterior epistaxis Acute dyspnea Chest pain delivery delivered IBS (irritable bowel syndrome) Surgical History History of delivery, currently History of History of wisdom tooth extraction Hx of LASIK Family History Mother Breast cancer, Onset Age: 41 again at 58Grandmother Cancer multiple myelomaGrandfather Diabetes Social History adopted: No household members: spouse and children housing: house number of children: 3 current occupational status: employed 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 [employer] pets and animals: Yes (outside) pets and animals: dog(s) history of recent travel: Yes ([place] in October) out of state: Yes out of country: No sexually active: Yes Smoking Status: Never smoker alcohol intake: current details: social- not while substance use type: does not use well-balanced diet: daily or most days caffeine: Yes Type: coffee Number of servings: 1 eating out: rarely or never during the past year weight has: remained stable what type of physical activity do you participate in: bicycling and weight training frequency: 5-6 times per week duration: 15-30 minutes/day lilia/pentecostalism: Yarsanism seatbelt use: always do you feel safe at home: Yes additional social history: Abner- Top 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 Date Name GA/Weeks Outcome Route Bth Weight Infant Gen Labor Lgth Anesthesia Del Locatn Provider FOB 09/05/18 Rogelio 36 live - full term 5lbs 14oz Male spinal [employer] Marcanthony 11/19/20 Randy 39 live - full term 7lbs 10oz Male spinal [employer] SM 12/03/22 Kim 41 live - full term 7lbs 15oz Female spinal [employer] Dr. Roe Delivery Date: 09/05/18 Last Updated by: Vanesa Ngo Breech PPROM HPI 36 wk ob Details: ASHLEY PORTILLO is a 33 year old who presents for RLTCS history of uterine window at time of , recommended 36-37 week delivery. OB Visit GREGORIO Calculator Estimated Delivery Date Method Current WG Current Estimate 07/17/24 LMP (Certain) 36w 5d Other Estimates 07/17/24 Ultrasound #1 36w 5d Expected Delivery Route/Plan for repeat section with SM at 37 weeks due to 5 cm uterine window at TOLAC Specific Issue/Plans Covid status: [] Flu vaccine: declined Tdap vaccine: declines Rhogam: NA LARC form signed: yes Problem list reviewed and updated with the most current plan of care details and appropriate orders placed. Relevant counseling for the gestational age provided. Continue routine care and follow up unless otherwise noted in visit notes/problem list details Initial Weight: 126 lb Date -?-?-?-?-?-?-?-?-?-?-?-?- EGA Weight BP Urine Prot -?-?-?-?-?-?-?-?-?-?-?-?- Glucose FHR FuHt Pres Dilation -?-?-?-?-?-?-?-?-?-?-?-?- Effaced St Visit Note 12/17/23-?-?-?-?-?-?-?-?-?-?-?-?- 9w 4d 126 lb 8 oz(+8 oz) 120/68 -?-?-?-?-?-?-?-?-?-?-?-?- 180 -?-?-?-?-?-?-?-?-?-?-?--?- JV- CRL measures 2.8 cm and consistent with LMP. NIPT declined. planning repeat section. 01/21/24-?-?-?-?-?-?-?-?-?-?-?-?- 14w 4d 133 lb(+7 lb) 115/66 -?-?-?-?-?-?-?-?-?-?-?-?- 150 -?-?-?-?-?-?-?-?-?-?-?-?- SM- no vb cramping 02/12/24-?-?-?-?-?-?-?-?-?-?-?-?- 17w 5d 138 lb(+12 lb) 106/63 Negative -?-?-?-?-?-?-?-?-?-?-?-?- Negative 155 -?-?-?-?-?-?-?-?-?-?-?-?- KW- no vb/cramping. compression hose for leg discomfort. US scheduled. 03/11/24-?-?-?-?-?-?-?-?-?-?-?-?- 21w 5d 147 lb 2 oz(+21 lb 2 oz) 106/61 Negative -?-?-?-?-?-?-?-?-?-?-?-?- Negative 154 -?-?-?-?-?-?-?-?-?-?-?-?- JV- no lof, vaginal bleeding or dec fm. no complaints today. plans to do the fresh test. 04/07/24-?-?-?-?-?-?-?-?-?-?-?-?- 25w 4d 156 lb 2 oz(+30 lb 2 oz) 102/62 Negative -?-?-?-?-?-?-?-?-?-?-?-?- Negative 150 -?-?-?-?-?-?-?-?-?-?-?-?- SM- no vb lof good fm no regular ctx discussed preivous cseciton 04/25/24-?-?-?-?-?-?-?-?-?-?-?-?- 28w 1d 158 lb 8 oz(+32 lb 8 oz) 102/60 Negative -?-?-?-?-?-?-?-?-?-?-?-?- Negative 136 27 -?-?-?-?-?-?-?-?-?-?-?-?- MH-No VB, LOF. Good FM. 28 wk labs pending. Declines tdap. [facility] 05/09/24-?-?-?-?-?-?-?-?-?-?-?-?- 30w 1d 159 lb 8 oz(+33 lb 8 oz) 110/59 Negative -?-?-?-?-?-?-?-?-?-?-?-?- Negative 135 30 -?-?-?-?-?-?-?-?-?-?-?-?- KW- no vb/lof/ctx. good fm. no concerns today. 05/25/24-?-?-?-?-?-?-?-?-?-?-?-?- 32w 3d 164 lb 8 oz(+38 lb 8 oz) 106/67 Negative -?-?-?-?-?-?-?-?-?-?-?-?- Negative 139 32 -?-?-?-?-?-?-?-?-?-?-?-?- JV- no complaints JV- no complaints today. has ultrasound next visit. planning rpt cs on 06/2706/10/24-?-?-?-?-?-?-?-?-?-?-?-?- 34w 5d 169 lb 4 oz(+43 lb 4 oz) 113/72 Negative -?-?-?-?-?-?-?-?-?-?-?-?- Negative 130 35 -?-?-?-?-?-?-?-?-?-?-?-?- KW- no vb/lof/ctx. good fm. doing well. had growth scan today 06/24/24-?-?-?-?-?-?-?-?-?-?-?-?- 36w 5d 171 lb 2 oz(+45 lb 2 oz) 110/71 Negative -?-?-?-?-?-?-?-?-?-?-?-?- Negative 140 36 -?-?-?-?-?-?-?-?-?-?-?-?- SM- no vb lof good fm no regular ctx gbs gcc ACOG First Trimester First Trimester: Desire for , Alcohol, Tobacco Cessation, Illicit/Recreational Drug/Substance Use, Intimate Partner Violence, Barriers to care, Unstable Housing, Communication Barriers, Environmental/Work Hazards, Anticipated Course of Care, Toxoplasmosis Precations, Use of Any medications, Sexual activity, Exercise, Dental Care, Sauna/Hot tub use, Seat Belt use, Childbirth classes/Hospital facilities, Travel, Indications for Ultrasound and Screening for Aneuploidy; Discussed Second Trimester Second Trimester: Signs and Symptoms of Labor, Selecting a care provider, Reproductive Life Planning & Contreception, Care Planning and Depression/Anxiety; Discussed Tobacco Cessation and Discussed Intimate Partner Violence Third Trimester Third Trimester: Pain Management Plans, Labor support person(s), Immediate Larc, Movement Monitoring, Signs and Symptoms of Preeclampsia, Infant Feeding No and Family Medical Leave or Disability Forms; Discussed Trial of Labor after Counseling and Discussed Circumcision preference ROS Const Reports system reviewed and no additional complaints, except as documented Card Reports system reviewed and no additional complaints, except as documented Resp Reports system reviewed and no additional complaints, except as documented GI Reports system reviewed and no additional complaints, except as documented and Reports nausea Reports system reviewed and no additional complaints, except as documented Musc Reports system reviewed and no additional complaints, except as documented Exam Const General: cooperative, healthy appearing, comfortable and anxious HENMT Head: normal to inspection Nose: external nose normal Face and sinus: normal facial exam Neck Neck: normal visual inspection, full ROM and no lymphadenopathy Thyroid: thyroid normal Chest Chest palpation & inspection: normal inspection of the chest Resp Effort & Inspection: normal respiratory effort GI Inspection: normal to inspection Palpation: soft and other (gravid uterus) Other: vertex and appropriate size for gestational age Other: Cervical Exam: Extrem General: pedal edema Results POC Urinalysis 2 Dip (Clinic) Office Urine Glucose Negative Last Edit by Cecilia Ribeiro on 06/24/24 14:11 Office Urine Protein Negative Last Edit by Cecilia Ribeiro on 06/24/24 14:11 Coding Level of Care Code OB Routine Diagnoses Pruritus of O99.719; L29.9 History of rupture of uterus Z87.828 History of 3 sections Z98.891 Hx of depression, currently O99.891; Z86.59 Supervision of high risk in third trimester O09.93 Trimester: third trimester 36 weeks gestation of Z3A.36 Weeks of gestation: 36 weeks Anxiety F41.9 Assessment and Plan Assessment and Plan (1) Pruritus of : Status: Acute (2) History of rupture of uterus: Status: Acute Comment: 5 cm uterine window, recommend 37 week delivery, plan BMZ at 36 weeks. (3) History of 3 sections: Status: Acute Comment: planning RLTCS scheduled for 06/27 @ 12 with (4) Hx of depression, currently : Status: Acute (5) Supervision of high-risk : Status: Acute Qualifiers: Trimester: third trimester Qualified Code(s): O09.93 - Supervision of high risk , unspecified, third trimester Comment: PRR , GREGORIO 07/17/24, PC Randy Mercado, Kim Levine (6) : Status: Acute Qualifiers: Weeks of gestation: 36 weeks Qualified Code(s): Z3A.36 - 36 weeks gestation of Comment: declines ntd & carrier testing, normal anatomy (7) Anxiety: Status: Acute Comment: counseling enc. Magnesium supp; resolved. Orders: Orders Culture, Group B Streptococcus Today O09.93 - Supervision of high risk , unspecified, third trimester POC Urinalysis 2 Dip (Clinic) Today After discussing the patient's diagnosis and treatment plan options, patient wishes to proceed with surgical management. I have discussed with the patient the risks, benefits, and alternatives of the procedure which include but are not limited to risks of anesthesia, bleeding, infection, possible damage to bowel, bladder, or surrounding vasculature which could lead to additional surgery to evaluate any complications. Patient agrees to procedure and wishes to proceed. ACOG/uptodate references given for additional information regarding procedure. UPDATE- I have seen the patient and performed any clinically relevant updates to the history and physical exam. Elva Mcrae MD
--- NOTE | 2024-06-28 08:06 | EX.PCM.OBRPT ---
Assessment & Plan (1) History of rupture of uterus: COMMENT: 5 cm uterine window, recommend 37 week delivery, plan BMZ at 36 weeks. (2) History of 3 sections: COMMENT: planning RLTCS scheduled for 06/27 @ 12 with SM (3) delivery delivered: COMMENT: RLTCS thin lower uterine segment, minimal scar tissue boy SM (4) Anxiety: COMMENT: counseling enc. Magnesium supp; resolved. (5) : QUALIFIERS: Weeks of gestation: 36 weeks Qualified Code(s): Z3A.36 - 36 weeks gestation of COMMENT: Neg GBS. declines ntd & carrier testing, normal anatomy (6) Supervision of high-risk : QUALIFIERS: Trimester: third trimester Qualified Code(s): O09.93 - Supervision of high risk , unspecified, third trimester COMMENT: PRR , GREGORIO 07/17/24, Randy Gant, Kim Abner (7) Hx of depression, currently : Maternal Data Information GREGORIO Calculator Estimated Delivery Date Method Current WG Current Estimate 07/17/24 LMP (Certain) 37w 2d Other Estimates 07/17/24 Ultrasound #1 37w 2d Final GREGORIO Source: LMP Operative Report (OB) Details Procedure Type: low transverse Date of Procedure: 06/27/24 Procedure Start Time: 12:44 Procedure Stop Time: 13:26 Pre-Operative Diagnosis: Other Other Pre-Operative diagnosis: see a/p comments Post-Operative Diagnosis: Same as Pre-operative diagnosis Classification: Scheduled Type of Anesthesia: Spinal Special Medications: none Antibiotic Given: Ancef 2 grams IV x1 Drain: Allen to straight drain Estimated Blood Loss: 400 Fluids Replaced: crystalloid Findings Description of surgery: Spinal anesthesia was placed without difficulty. Allen catheter was placed. The patient was placed in the dorsal supine position with leftward tilt. Patient was prepped and draped in the normal sterile fashion. Pfannenstiel skin incision was made with the scalpel and carried through to the underlying layer of fascia with the scalpel. Fascia was nicked in the midline and the incision extended laterally. The rectus bellies were dissected off superiorly and inferiorly with out complication both sharply and bluntly. The peritoneum was entered digitally. The incision was stretched and a low transverse uterine incision was made with the scalpel. The infant's head was delivered atraumatically followed by the anterior and posterior shoulders without complication the rest of the delivered. The cord was clamped and cut and the infant was handed off to awaiting nurse. The placenta was delivered spontaneously immediately following and was noted to be intact and have a three-vessel cord. The uterus was exteriorized cleared of all clots and debris, and the incision was closed in a single layer closure using #1 Monocryl, ARMANDO was very thin noted on the closure. The ovaries and fallopian tubes were noted to be within normal limits. The uterus was returned to the maternal abdomen and gutters were cleared of all clots and debris. The peritoneum was closed with 3-0 Monocryl in a running fashion. Gloves were changed prior to fascial closure. Fascia was closed with 0 PDS in a running fashion. Subcutaneous tissue was copiously irrigated and the skin was closed with 3-0 Monocryl in a subcuticular fashion. Mepilex dressing was applied without complication. Patient was taken to recovery in stable condition. Surgical findings: nl uterus tubes ovaries Presentation: Vertex Amniotic Membrane Rupture Type: Artificial Amniotic Fluid Description: Clear Specimen collected: Yes Description of specimen(s) removed: placenta and baby Cord Vessel Description: 3 Vessels Delayed Cord Clamping: Yes Area Development Consultant employee relations manager: Yes Alley Tender: Paco Mcbride Tasks completed by assistant shift supervisor: Opening & closing, Retracting and Other (assisting in delivery of the infant) Additional preschool teacher's assistant?: No Complications Complications: No Admit VTE Documentation VTE Present on Admission: No VTE Mechan Device Prophylaxis: SCD's Procedures Urinary/Genital [id number]: 16816 Delivery [facility]
--- NOTE | 2024-06-28 08:40 | NURSING ---
Fine red rash noted around incision area. Pt. states it is itchy and she had the same after previous due to surgical prep. Dr. Mcrae made aware.
[2024-06-28] MEDS: Senna/Docusate Sodium 1 Tablet PO (08:53)
--- NOTE | 2024-06-28 11:27 | CASEMGMT ---
Social Work Assessment Labor and Delivery Unit Patient Address: [address] [place] [address]. [address] [place] [address] Phone number: [phone] Date of Referral: 06/27/24 Time of Referral:? 1903 Referred By: Dr. Mcrae Date of Intervention: ?? 06/28/24 Time of Intervention:? 914 Reason for Referral:? hx of PPD, anxiety, but in chart it is noted as being resolved Sw completed chart review and acknowledges social work consult due to maternal mental health history. Sw presented to bedside and introduced self to mother of baby (ARTURO- Neida) and father of baby (KALPANA- Abner). Sw explained reason for sw involvement and completed psychosocial assessment. History obtained from: medical records, MOB and FOB Household composition: Currently residing in the family home is KALPANA MORRIS, their three older children: Rogelio (5), Randy (3), and Kim (1). [facility] baby will also be included in residence when ready for discharge. Parents deny any housing concerns, reporting that their home is safe and secure. Patient's parent/guardian status:?ARTURO and KALPANA have been together for 11 years after meeting each other online. No reports of domestic violence or intimate partner violence. This is fourth baby for parents together. Medical History: ARTURO is 33 year old female who is 4, para 3- now 4 following labor and delivery of . ARTURO recieved routine care during with [facility]. ARTURO presented to hospital and delivered baby via repeat at 37 weeks gestation on 06/27/24. Baby boy, named Grand Rajan, was born weighing 7lb 4oz with apgars of 8 and 9 at one and five minutes of life, respectfully. ARTURO is breast feeding and states that it is going well. Baby will be followed by Dr. Jessica for pediatrics. Educational Status:? Both parents graduated high school and obtained college degrees. No problems with reading, learning or comprehension. Financial Status: Both parents are gainfully employed. 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 ARTURO states she gets 12 weeks off of work for maternity leave. Infant Supplies:All necessary baby supplies obtained, including: car seat, safe sleep space, clothes, diapers and wipes. Childcare/Caregiver(s):? ARTURO will be the primary caregiver to baby, along with KALPANA when he is not working. Transportation:?? Both parents have their drivers license and reliable means of transportation, no barriers. Programs/Agencies Involved: ???Parents are not connected to any community agencies that assist them financially as they are over income. Children Services/Legal Issues:??? No history of children services involvement, no issues or concerns warranting referral to be made at this time. Behavioral Health Issues: ??Mental Health History:?FOB denies mental health history. ARTURO reports to having a history of anxiety and depression. ARTURO also acknowledges that she struggled in the first trimester with anxiety when she was with her daughter, and then reports that starting her second trimester she felt a lot better. ARTURO states that after several of her pregnancies/ deliveries she has experienced tearfulness and feeling extra emotional, but denies that her symptoms ever reached the point of becoming identified as depression or anxiety. ARTURO is not and has never been prescribed medication to help her manage her mental health symptoms. ?? Substance Use History:?Parents deny substance use prior to and during . ? Family History:?Parents deny family history of addiction or significant mental health diagnoses. ? Drug Screens: No drug screens observed while completing chart review. Family/Social Stressors:?Parents deny any problems, concerns or stressors at this time. Support Systems: Parents identify that both sets of grandparents and family members are supportive. Depression/Shaken Baby/Safe Sleeping: Les educated parents on signs and symptoms of baby blues and depression and anxiety to be mindful of during this period. FOMel states that if MOB were to struggle with her mental health during this time he would be able to recognize it and would know how to help and support her. MOB agreed to this, and stated that KALPANA is a big support to her and knows when she needs help with the older kids so she can get a break or be with just the baby. Les educated parents on shaken baby prevention and ABCs of safe sleep, parents express understanding. At this time MOB denies feeling sad, anxious, tearful or overwhelmed. ASSESSMENT:?MOB and baby admitted following labor and delivery of . Both parents present and welcoming and engaging with les, receptive to support and education provided. KALPANA was sitting in chair comfortably holding baby and was attentive to his needs. MOB with mental health history, although mentioned in charting history of depression, MOB does not feel as though her symptoms were strong enough to warrant that diagnosis. Both parents were talkative and conversation flowed naturally. Parents have obtained all necessary baby supplies and have natural supports in place. PLAN:?? No other services requested or indicated. MOB and baby to be discharged when medically ready. Parents were provided literature regarding: signs and symptoms of baby blues and mood and anxiety disorders, Help Me Grow, shaken baby prevention, ABCs of safe sleep and a list of county resources that are available for them should any needs present themselves. Juancarlos Cruz, UNIVERSITY TEACHER, STOGY MAKER
[2024-06-28 12:40] VITALS: BP 127/74; PULSE 89; RESP 18; TEMP 36.8; O2SAT 99
--- NOTE | 2024-06-28 12:57 | PCM.PN.OB ---
Subjective Subjective Patient doing well without complaints. Tolerating PO. Ambulating and voiding without difficulty. feeding well. Denies chest pain, shortness of breath, calf pain/swelling, fevers, chills, lightheadedness. had some rash abov eincision Objective Data Objective Data Vital Signs: Vital Signs Temp Pulse Resp BP Pulse Ox O2 Del Method 97.4 F L 69 18 102/48 L 97 Room Air 06/28/24 08:00 06/28/24 08:00 06/28/24 08:00 06/28/24 08:00 06/28/24 08:00 06/28/24 08:00 Oxygen Delivery Method Room Air Weight: 168 lb Body Mass Index (BMI) 29.7 Intake & Output: Intake and Output for Last 24 Hours 06/26/24 06/27/24 06/28/24 23:59 23:59 23:59 Intake Total 1910.25 / 1910.25 1000 / 1000 Output Total 1200 / 1200 2000 / 2000 Balance 710.25 / 710.25 -1000 / -1000 Lab / Micro Data 06/28/24 05:20 Labs: Laboratory Results - last 24 hr 06/28/24 05:20: WBC 16.5 H, RBC 3.90 L, Hgb 11.6 L, Hct 34.5 L, MCV 88.5, MCH 29.7, MCHC 33.6, RDW Std Deviation 44.6 H, RDW Coeff of Hansel 13.9, Plt Count 186, MPV 9.1 ROS Constitutional Constitutional: Reports systems reviewed and no addt'l complaints, except as documented Cardiovascular Cardiovascular: Reports systems reviewed and no addt'l complaints, except as documented Respiratory/Chest Respiratory/Chest: Reports systems reviewed and no addt'l complaints, except as documented Gastrointestinal Gastrointestinal: Reports systems reviewed and no addt'l complaints, except as documented Physical Exam Const alert, oriented x3 and no apparent distress HEENT Head and Scalp: atraumatic Resp normal respiratory effort GI soft to palpation and non-tender Inspection: incision intact, healing well, drainage (none) and other (papular pruritic erythematous rash above incision) Bimanual Exam - Vag & Uterus: uterus non-tender Uterus Palpation: uterus fundus firm (below Umbilicus) Assessment & Plan (1) delivery delivered: COMMENT: RLTCS thin lower uterine segment, minimal scar tissue boy SM PLAN: Plan s/p LTCS PPD # 1 1. routine post care 2. breast feeding- support given 3. rh positive 4. rubella immune topical support of rash above incision likely irrtation from drape and prep
[2024-06-28] MEDS: Hydrocortisone 2.5% Crm 1 APPLIC TOPICAL (13:34)
[2024-06-28] MEDS: DiphenhydrAMINE 25 MG Capsule 50 MG PO (13:35)
[2024-06-28] MEDS: Naproxen 500 MG Tablet PO ×2 (13:35→21:29)
[2024-06-28 15:19] VITALS: BP 102/57; PULSE 62; RESP 16; TEMP 36.8; O2SAT 97
[2024-06-28] MEDS: oxyCODONE 5 MG Tablet PO ×2 (17:45→22:29)
[2024-06-28 20:49] VITALS: BP 108/64; PULSE 75; RESP 16; TEMP 36.4; O2SAT 99
--- NOTE | 2024-06-29 00:11 | DCINST_ITS ---
Discharge Instructions Diet Discharge Diet: No restrictions DC O2, CPAP, BIPAP needs Home O2 Discharge instructions: No Dressing / Incision Discharge Activity: May Not Drive (for 2 weeks or while taking narcotic pain medications.), May Shower and May Take a Tub Bath (in 7 days) May shower in (days): 0 May resume sexual activity in: 4-6 weeks Weight Bearing Status: Full weight bearing Lifting Restrictions: 20 pounds Dressing / Incision Call your doctor if your incision/area has: Continuous Slow Oozing, Sudden Increased Bleeding, Increased Pain/ Swelling, Increased Redness and Foul Smelling Discharge Call your doctor if you observe: Fever of 101 or Higher and Using more than 1 pad per hour (for 2 hours) Suture Line Care: Avoid Pulling/Pushing and Avoid Pinching/Bending Cleanse incision/area with: Soap & Water and Keep Dressing Clean & Dry Follow Up Care Please Follow Up With: Elva Mcrae MD When: Call [phone] to make an appointment for an incision check in 1-2 weeks. Test Results: Test results from this visit will be discussed in further detail at your follow- up appointment, if applicable. Discharge Plan Admission Admit Date/Time: 06/27/24 10:05 Attending Provider: Elva Mcrae Primary Care Provider: Abilio Dai Discharge Orders/Prescriptions Prescriptions: New oxycodone-acetaminophen [Percocet] 5-325 mg tablet 1 tab PO Q4H PRN (Reason: pain) 7 Days Qty: 20 0RF naproxen 500 mg tablet 500 mg PO BID PRN PRN (Reason: Pain) Qty: 30 1RF oxycodone-acetaminophen [Percocet] 5-325 mg tablet 1 tab PO Q4H PRN (Reason: pain) 7 Days Qty: 20 0RF No Action [id number] 27 mg iron-800 mcg-260 mg capsule 1 cap PO DAILY Referrals / Follow Up: Abilio Dai MD [Primary Care Provider] - Disposition Disposition (needs filled in before D/C Order can be placed): Home, Self Care
[2024-06-29 02:16] VITALS: BP 112/62; PULSE 76; RESP 16; TEMP 36.6; O2SAT 97
[2024-06-29] MEDS: Acetaminophen 500 MG Tablet 1000 MG PO ×4 (05:12→23:50)
[2024-06-29] MEDS: Naproxen 500 MG Tablet PO ×2 (06:03→15:37)
[2024-06-29] MEDS: oxyCODONE 5 MG Tablet PO ×3 (06:58→19:49)
--- NOTE | 2024-06-29 08:09 | PCM.PN.OB ---
Subjective Subjective Patient doing well. Itching rash over abdomen where OR prep wash was done. States had last time. Hydrocortisone cream helpful. Tolerating PO. Ambulating and voiding without difficulty. Feeding well. Denies chest pain, shortness of breath, calf pain/swelling, fevers, chills, lightheadedness. Objective Data Objective Data Vital Signs: Vital Signs Temp Pulse Resp BP Pulse Ox O2 Del Method 97.9 F 76 16 112/62 97 Room Air 06/29/24 02:16 06/29/24 02:16 06/29/24 02:16 06/29/24 02:16 06/29/24 02:16 06/29/24 02:16 Oxygen Delivery Method Room Air Weight: 168 lb Body Mass Index (BMI) 29.7 Intake & Output: Intake and Output for Last 24 Hours 06/27/24 06/28/24 06/29/24 23:59 23:59 23:59 Intake Total 1910.25 / 1910.25 1000 / 1000 240 / 240 Output Total 1200 / 1200 2000 / 2000 Balance 710.25 / 710.25 -1000 / -1000 240 / 240 Lab / Micro Data 06/28/24 05:20 Physical Exam Const alert and oriented x3 HEENT normocephalic Eyes PERRL Neck full ROM Resp normal respiratory effort GI soft to palpation GI Narrative: FF below U. Dressing dry and intact Palpation: tender other (appropriately) Skin Skin Narrative: Fine red rash noted over area where pre op wash was done Assessment & Plan (1) delivery delivered: COMMENT: RLTCS thin lower uterine segment, minimal scar tissue boy SM (2) Contact dermatitis: QUALIFIERS: Contact dermatitis type: irritant Contact dermatitis trigger: detergents Qualified Code(s): L24.0 - Irritant contact dermatitis due to detergents COMMENT: from pre op wash over abdomen PLAN: Plan s/p LTCS PPD #1 1. routine post care 2. breast feeding- support given 3. rh positive 4. rubella immune 5. continue cortisone cream prn to abdomen
[2024-06-29 08:19] VITALS: BP 116/77; PULSE 76; RESP 16; TEMP 36.5; O2SAT 98
[2024-06-29] MEDS: Senna/Docusate Sodium 1 Tablet PO (11:01)
[2024-06-29 12:00] VITALS: BP 113/54; PULSE 85; RESP 16; TEMP 37.3; O2SAT 98
[2024-06-29 19:47] VITALS: BP 131/74; PULSE 61; RESP 18; TEMP 36.4; O2SAT 100
[2024-06-29] MEDS: DiphenhydrAMINE 25 MG Capsule 50 MG PO (23:50)
[2024-06-30 02:10] VITALS: BP 101/61; PULSE 69; RESP 16; TEMP 36.9; O2SAT 98
[2024-06-30] MEDS: oxyCODONE 5 MG Tablet PO ×3 (02:17→08:39)
[2024-06-30] MEDS: Acetaminophen 500 MG Tablet 1000 MG PO (06:50)
--- NOTE | 2024-06-30 07:33 | PCM.PN.OB ---
Subjective Subjective Patient doing well. Rash on abdomen has improved. She has a lump in left axilla that she noted prior to deliver and is not decreasing with /pumping. Tolerating PO. Ambulating and voiding without difficulty. Feeding well. Denies chest pain, shortness of breath, calf pain/swelling, fevers, chills, lightheadedness. Objective Data Objective Data Vital Signs: Vital Signs Temp Pulse Resp BP Pulse Ox O2 Del Method 98.5 F 69 16 101/61 98 Room Air 06/30/24 02:10 06/30/24 02:10 06/30/24 02:10 06/30/24 02:10 06/30/24 02:10 06/30/24 02:10 Oxygen Delivery Method Room Air Weight: 168 lb Body Mass Index (BMI) 29.7 Intake & Output: Intake and Output for Last 24 Hours 06/28/24 06/29/24 06/30/24 23:59 23:59 23:59 Intake Total 1000 / 1000 240 / 240 Output Total 1999 / 1999 Balance -1000 / -1000 240 / 240 Lab / Micro Data 06/28/24 05:20 Physical Exam Const alert and oriented x3 HEENT normocephalic Eyes PERRL Neck full ROM Lymph Lymphatic Narrative: firm, peasized mass left axilla-possible lymph node. Does not decrease in size with massage Resp normal respiratory effort GI soft to palpation GI Narrative: FF below U. Dressing dry and intact Palpation: tender other (appropriately) Assessment & Plan (1) delivery delivered: COMMENT: RLTCS thin lower uterine segment, minimal scar tissue boy Luis Eduardo (2) Contact dermatitis: QUALIFIERS: Contact dermatitis type: irritant Contact dermatitis trigger: detergents Qualified Code(s): L24.0 - Irritant contact dermatitis due to detergents COMMENT: from pre op wash over abdomen/improving (3) Depression: QUALIFIERS: Depression Type: unspecified Qualified Code(s): F32.A - Depression, unspecified COMMENT: stable (4) Mass of left axilla: COMMENT: US PLAN: Plan s/p LTCS PPD # 2 1. routine post care 2. breast feeding- support given 3. rh positive 4. rubella immune 5. ultrasound left axilla 6. home today
--- NOTE | 2024-06-30 07:36 | US_ITS ---
EXAM: US Left Axilla CLINICAL INDICATION: SMALL BUMP IN LEFT AXILLA TECHNIQUE: Real-time ultrasound of the left axilla with image documentation. COMPARISON: No relevant prior studies available. FINDINGS: Enlarged lymph nodes over the left axilla, measuring up to 2.1 cm and 1.3 cm. US/Axilla - Left IMPRESSION: Enlarged lymph nodes over the left axilla, measuring up to 2.1 cm and 1.3 cm. Reading [facility]
[2024-06-30 07:54] VITALS: BP 104/69; PULSE 62; RESP 16; TEMP 36.5; O2SAT 98
[2024-06-30] MEDS: Senna/Docusate Sodium 1 Tablet PO (10:27)
--- NOTE | 2024-07-05 07:43 | DS.PCM_ITS ---
Providers Date of Admission: 06/27/24 Primary Care Physician: Dr. Abilio Dai MD Reason For Visit: REPEAT Diagnosis Discharge Diagnosis (1) delivery delivered: Status: Acute Code(s): O82 - Encounter for delivery without indication (2) Contact dermatitis: Status: Acute Code(s): L25.9 - Unspecified contact dermatitis, unspecified cause Qualifiers: Contact dermatitis type: irritant Contact dermatitis trigger: d etergents Qualified Code(s): L24.0 - Irritant contact dermatitis due to detergents (3) Depression: Status: Acute Code(s): F32.A - Depression, unspecified Qualifiers: Depression Type: unspecified Qualified Code(s): F32.A - Depression, unspecified (4) Mass of left axilla: Status: Acute Code(s): R22.32 - Localized swelling, mass and lump, left upper limb Plan s/p LTCS PPD # 2 1. routine post care 2. breast feeding- support given 3. rh positive 4. rubella immune 5. ultrasound left axilla 6. home today Medications at Discharge Home Medications PNV no.151-iron 27 mg-folic 800 mcg-omega3 260 fj-ikp-hdl-fish capsule 1 cap PO DAILY 04/15/22 naproxen 500 mg tablet 500 mg PO BID PRN PRN Pain #30 tabs 06/29/24 oxycodone-acetaminophen 5 mg-325 mg tablet (Percocet) 1 tab PO Q4H PRN pain 7 days #20 tabs 06/29/24 oxycodone-acetaminophen 5 mg-325 mg tablet (Percocet) 1 tab PO Q4H PRN pain 7 days #20 tabs 06/29/24 Hospital Course Operations section Summary of Care Provided Hospital Course: Patient underwent section with routine recovery, return of normal bowel and bladder function. Ambulating, voiding and tolerating PO. Stable for discharge home POD #3. Weight / BMI Weight Weight: 168 lb Body Mass Index (BMI) 29.7 ABG / Lab / Microbiology Data 06/28/24 05:20 D/C Instructions Discharge Diet: No restrictions May shower in (days): 0 May resume sexual activity in: 4-6 weeks Weight Bearing Status: Full weight bearing Call your doctor if your incision/area has: Continuous Slow Oozing, Sudden Increased Bleeding, Increased Pain/ Swelling, Increased Redness and Foul Smelling Discharge Call your doctor if you observe: Fever of 101 or Higher and Using more than 1 pad per hour (for 2 hours) Suture Line Care: Avoid Pulling/Pushing and Avoid Pinching/Bending Cleanse incision/area with: Soap & Water and Keep Dressing Clean & Dry DC O2, CPAP, BIPAP Needs Home O2 Discharge instructions: No Please Follow Up With: Elva Mcrae MD When: Call [phone] to make an appointment for an incision check in 1-2 weeks. Meaningful Use Info Meaningful Use Meaningful Use Diagnoses (Choose all that apply): None applicable Ischemic Stroke Statin Dosing Therapy Reference: STATIN DOSE THERAPY REFERENCE: * Patients > 75 years receive moderate or high dose statin therapy. * Patients 75 years or YOUNGER should receive HIGH intensity statin dose unless contraindicated. You will be required to document reason for non-treatment if statin daily dose does not meet guidelines. HIGH DOSE STATIN THERAPY DAILY Atorvastatin > than or = to 40 mg Rosuvastatin > than or = to 20 mg Amlodipine + Atorvastatin > than or = to 2.5/40 mg Ezetimibe + Simvastatin 10/80 mg Simvastatin 80mg Discharge Plan Admission Admit Date/Time: 06/27/24 10:05 Attending Provider: Elva Mcrae Primary Care Provider: Abilio Dai Instructions Patient Instructions: After a Delivery (WP) Discharge Orders/Prescriptions Prescriptions: New oxycodone-acetaminophen [Percocet] 5-325 mg tablet 1 tab PO Q4H PRN (Reason: pain) 7 Days Qty: 20 0RF naproxen 500 mg tablet 500 mg PO BID PRN PRN (Reason: Pain) Qty: 30 1RF oxycodone-acetaminophen [Percocet] 5-325 mg tablet 1 tab PO Q4H PRN (Reason: pain) 7 Days Qty: 20 0RF No Action [id number] 27 mg iron-800 mcg-260 mg capsule 1 cap PO DAILY Referrals / Follow Up: Abilio Dai MD [Primary Care Provider] - Disposition Disposition (needs filled in before D/C Order can be placed): Home, Self Care
--- NOTE | 2024-07-05 10:07 | NURSING ---
Follow up phone call made, no answer, left voicemail
== END 2024-06-30 12:20 | disposition home or self-care (01) | DRG 788 ==
PROVIDERS: Admitting Provider Obstetrics & Gynecology; PCP Internal Medicine; Referring Provider Obstetrics & Gynecology; Visit Provider Obstetrics & Gynecology
PROC: (CPT 59514; principal; 2024-06-27 11:45)
DX: O99.344 Other mental disorders complicating childbirth (principal); F32.A Depression, unspecified; F41.9 Anxiety disorder, unspecified; L24.0 Irritant contact dermatitis due to detergents; O99.892 Other specified diseases and conditions complicating childbirth; O34.211 Maternal care for low transverse scar from previous cesarean delivery; R22.32 Localized swelling, mass and lump, left upper limb; O99.72 Diseases of the skin and subcutaneous tissue complicating childbirth; Z37.0 Single live birth; Z3A.37 37 weeks gestation of pregnancy; Z88.0 Allergy status to penicillin
CPT/HCPCS: 59025; 59050; 76882; 85025; 85027; 86780; 86850; 86900; 86901; 99221; A4216; G0378; J2405